=== PATIENT | male | born 1975 | race Caucasian/White ===

== ENCOUNTER 2018-11-14 10:18 | Emergency (ER) | payer SELFPAY ==
[~2018-11-14] VITALS: Ht 165.1 cm; Wt 80.0 kg
[2018-11-14] MEDS ORDERED: SODIUM CHLORIDE 0.9% 1,000 ML IV ONE ×2 (10:34→11:30)
[2018-11-14 10:49] LABS: BASOPHILS % 0.8 % (0.0-2.0); EOSINOPHILS % 0.5 % (0.0-5.0); HEMATOCRIT. 39.6 % (42.0-52.0); HEMOGLOBIN. 13.3 g/dL (14.0-18.0); LYMPHOCYTES % 26.1 % (20.0-50.0); MEAN CORPUSCULAR HEMOGLOBIN 32.7 pg (28.0-32.0); MEAN PLATELET VOLUME 9.8 fl (7.4-10.4); MONOCYTES % 10.5 % (2.0-8.0); NEUTROPHILS % 62.1 % (40.0-76.0); RED BLOOD CELL COUNT 4.08 mill/uL (4.7-6.1); RED CELL DISTRIBUTION WIDTH 14.1 % (11.6-14.6)
[2018-11-14 10:53] LABS: PLATELET 50 x1000/uL (130-400)
[2018-11-14] MEDS ORDERED: PANTOPRAZOLE SODIUM 40 MG/VIAL IV STA (10:54)
[2018-11-14 10:58] LABS: CHLORIDE 99 mEq/L (98-107)
[2018-11-14] MEDS ORDERED: LORAZEPAM 2MG/ML CPJ IV ONE ×2 (11:00→13:00)
[2018-11-14] MEDS ORDERED: ONDANSETRON HCL 4MG/2ML INJ IV ONE (11:00)
[2018-11-14 11:02] LABS: ETHANOL BLOOD 246 mg/dL
[2018-11-14 11:12] LABS: PLATELET ESTIMATE DECREASED
[2018-11-14] MEDS ORDERED: CHLORDIAZEPOXIDE 25MG CAPSULE PO ONE ×3 (11:30→15:45)
[2018-11-14] MEDS ORDERED: ACETAMINOPHEN 500MG TABLET PO ONE (12:30)
[2018-11-14 14:06] LABS: CLARITY URINE CLEAR (CLEAR); COLOR URINE YELLOW (YELLOW); KETONES URINE TRACE (NEGATIVE); LEUKOCYTE ESTERASE URINE NEGATIVE (NEGATIVE); NITRITE URINE NEGATIVE (NEGATIVE); OCCULT BLOOD URINE NEGATIVE (NEGATIVE); PH URINE 6.5 (4.5-8.0); PROTEIN URINE NEGATIVE (NEGATIVE); SPECIFIC GRAVITY URINE 1.014 (1.005-1.030)
[2018-11-14 14:18] LABS: *AMPHETAMINES SCREEN URINE NEGATIVE (NEGATIVE); *BARBITURATES SCREEN URINE NEGATIVE (NEGATIVE); *BENZODIAZEPINES SCREEN URINE NEGATIVE (NEGATIVE)
[2018-11-14 14:19] LABS: *COCAINE SCREEN URINE NEGATIVE (NEGATIVE); CANNABINOID URINE SCREEN NEGATIVE (NEGATIVE); METHADONE URINE SCREEN NEGATIVE (NEGATIVE); OPIATES URINE SCREEN NEGATIVE (NEGATIVE); PHENCYCLIDINE URINE SCREEN NEGATIVE (NEGATIVE)
[2018-11-14 16:40] VITALS: BP 113/79
== END 2018-11-14 17:03 | disposition home or self-care (01) ==
LOC: ER 10:49
DX: T51.0X1A Toxic effect of ethanol, accidental (unintentional), initial encounter (principal); K70.9 Alcoholic liver disease, unspecified; I10 Essential (primary) hypertension; Y92.89 Other specified places as the place of occurrence of the external cause
CPT/HCPCS: 36415; 80053; 80305; 80320; 81003; 82962; 83690; 84484; 85025; 93005; 96365; 96375; 96376; 99285; C9113; J2060; J2405; J7030; G0480

== ENCOUNTER 2018-11-28 01:01 | Emergency (ER) | payer SELFPAY ==
[~2018-11-28] VITALS: Ht 170.2 cm; Wt 76.4 kg
[2018-11-28] MEDS ORDERED: MORPHINE SULFATE 4 MG/ML CPJ (NOT FOR IM USE) IV STA (03:26)
[2018-11-28] MEDS ORDERED: ONDANSETRON HCL 4MG/2ML INJ IV STA (03:26)
[2018-11-28 03:40] LABS: BASOPHILS % 3.5 % (0.0-2.0); EOSINOPHILS % 0.8 % (0.0-5.0); HEMATOCRIT. 41.1 % (42.0-52.0); HEMOGLOBIN. 13.9 g/dL (14.0-18.0); MEAN CORPUSCULAR HEMOGLOBIN 33.5 pg (28.0-32.0); MEAN CORPUSCULAR VOLUME 99.3 fL (80.0-94.0); MEAN PLATELET VOLUME 11.8 fl (7.4-10.4); MONOCYTES % 9.7 % (2.0-8.0); PLATELET 102 x1000/uL (130-400); RED BLOOD CELL COUNT 4.14 mill/uL (4.7-6.1); RED CELL DISTRIBUTION WIDTH 14.7 % (11.6-14.6)
[2018-11-28 03:44] LABS: CHLORIDE 110 mEq/L (98-107)
[2018-11-28 03:46] LABS: INR 1.1; PROTHROMBIN TIME 11.6 sec (9.6-11.0)
[2018-11-28 03:54] LABS: *BARBITURATES SCREEN URINE NEGATIVE (NEGATIVE); CANNABINOID URINE SCREEN NEGATIVE (NEGATIVE); OPIATES URINE SCREEN NEGATIVE (NEGATIVE); PHENCYCLIDINE URINE SCREEN NEGATIVE (NEGATIVE)
[2018-11-28 03:55] LABS: *AMPHETAMINES SCREEN URINE NEGATIVE (NEGATIVE); *BENZODIAZEPINES SCREEN URINE PRESUMTIVE POSITIVE (NEGATIVE); *COCAINE SCREEN URINE NEGATIVE (NEGATIVE); METHADONE URINE SCREEN NEGATIVE (NEGATIVE)
[2018-11-28] MEDS ORDERED: ASPIRIN 325MG EC TABLET PO ONE (05:30)
[2018-11-28 05:59] VITALS: BP 110/74
== END 2018-11-28 08:00 | disposition left against medical advice (07) ==
LOC: ER 01:01 → EDBEDREQTM 05:10 → EDBEDREQ 05:10 → ER 08:00 → CANBEDREQ 08:12
DX: R07.89 Other chest pain (principal); R06.02 Shortness of breath
CPT/HCPCS: 36415; 71045; 80053; 80305; 84484; 85025; 85610; 93005; 96374; 96375; 99284; J2270; J2405; Z7610

== ENCOUNTER 2019-01-30 17:22 | Emergency (ER) | payer MEDICAID ==
[~2019-01-30] VITALS: Ht 162.6 cm; Wt 71.0 kg
[2019-01-30] MEDS ORDERED: SODIUM CHLORIDE 0.9% 1,000 ML IV ONE (19:56)
[2019-01-30] MEDS ORDERED: ONDANSETRON HCL 4MG/2ML INJ IV STA (19:56)
[2019-01-30] MEDS ORDERED: MORPHINE SULFATE 4 MG/ML CPJ (NOT FOR IM USE) IV STA (19:56)
[2019-01-30 20:15] LABS: BASOPHILS % 0.6 % (0.0-2.0); EOSINOPHILS % 0.2 % (0.0-5.0); HEMATOCRIT. 40.4 % (42.0-52.0); HEMOGLOBIN. 14.3 g/dL (14.0-18.0); LYMPHOCYTES % 18.2 % (20.0-50.0); MEAN CORPUSCULAR HEMOGLOBIN 34.2 pg (28.0-32.0); MEAN CORPUSCULAR VOLUME 96.9 fL (80.0-94.0); MEAN PLATELET VOLUME 10.3 fl (7.4-10.4); PLATELET 65 x1000/uL (130-400); RED BLOOD CELL COUNT 4.17 mill/uL (4.7-6.1); RED CELL DISTRIBUTION WIDTH 13.6 % (11.6-14.6)
[2019-01-30 20:19] LABS: CHLORIDE 99 mEq/L (98-107)
[2019-01-30 20:23] LABS: ETHANOL BLOOD 126 mg/dL
[2019-01-30 22:28] LABS: CLARITY URINE CLEAR (CLEAR); COLOR URINE YELLOW (YELLOW); KETONES URINE NEGATIVE (NEGATIVE); LEUKOCYTE ESTERASE URINE NEGATIVE (NEGATIVE); NITRITE URINE NEGATIVE (NEGATIVE); OCCULT BLOOD URINE NEGATIVE (NEGATIVE); PH URINE 7.5 (4.5-8.0); PROTEIN URINE NEGATIVE (NEGATIVE); SPECIFIC GRAVITY URINE 1.015 (1.005-1.030)
[2019-01-30] MEDS ORDERED: LORAZEPAM 0.5MG TABLET PO ONE (22:30)
[2019-01-30 22:48] LABS: *AMPHETAMINES SCREEN URINE NEGATIVE (NEGATIVE); *BARBITURATES SCREEN URINE NEGATIVE (NEGATIVE); *BENZODIAZEPINES SCREEN URINE NEGATIVE (NEGATIVE); *COCAINE SCREEN URINE NEGATIVE (NEGATIVE); METHADONE URINE SCREEN NEGATIVE (NEGATIVE); OPIATES URINE SCREEN PRESUMTIVE POSITIVE (NEGATIVE)
[2019-01-30 22:49] LABS: CANNABINOID URINE SCREEN NEGATIVE (NEGATIVE); PHENCYCLIDINE URINE SCREEN NEGATIVE (NEGATIVE)
[2019-01-30] MEDS ORDERED: ONDANSETRON HCL 4MG/2ML INJ IV ONE (23:00)
[2019-01-31] MEDS ORDERED: ONDANSETRON 4MG ODT PO ONE
[2019-01-31 00:57] VITALS: BP 163/98
== END 2019-01-31 01:02 | disposition home or self-care (01) ==
LOC: ER 17:22
DX: K70.30 Alcoholic cirrhosis of liver without ascites (principal); E11.9 Type 2 diabetes mellitus without complications; I10 Essential (primary) hypertension; F10.229 Alcohol dependence with intoxication, unspecified; Y90.6 Blood alcohol level of 120-199 mg/100 ml; R94.5 Abnormal results of liver function studies; F17.210 Nicotine dependence, cigarettes, uncomplicated
CPT/HCPCS: 36415; 71045; 74176; 76705; 80053; 80305; 80320; 81003; 83690; 85025; 93005; 96361; 96374; 96375; 96376; 99284; J2270; J2405; J7030; Q0162; Z7610; G0480

== ENCOUNTER 2019-04-01 18:23 | Emergency (ER) | payer MEDICAID, OTHER ==
[~2019-04-01] VITALS: Ht 167.6 cm; Wt 71.0 kg
[2019-04-01] MEDS ORDERED: SODIUM CHLORIDE 0.9% 1,000 ML IV ONE (19:02)
[2019-04-01] MEDS ORDERED: PANTOPRAZOLE 80 MG in SODIUM CHLORIDE 0.9% 100 ML IV SCH ×2 (19:15→20:45)
[2019-04-01] MEDS ORDERED: PANTOPRAZOLE SODIUM 40 MG/VIAL IV ONE ×2 (19:15→20:37)
[2019-04-01] MEDS ORDERED: LORAZEPAM 1MG TABLET PO NR (19:45)
[2019-04-01 20:13] LABS: BASOPHILS % 1.3 % (0.0-2.0); EOSINOPHILS % 0.4 % (0.0-5.0); HEMATOCRIT. 35.4 % (42.0-52.0); HEMOGLOBIN. 12.4 g/dL (14.0-18.0); LYMPHOCYTES % 19.9 % (20.0-50.0); MEAN CORPUSCULAR HEMOGLOBIN 33.8 pg (28.0-32.0); MEAN CORPUSCULAR VOLUME 96.8 fL (80.0-94.0); MEAN PLATELET VOLUME 9.9 fl (7.4-10.4); MONOCYTES % 12.8 % (2.0-8.0); NEUTROPHILS % 65.6 % (40.0-76.0); RED BLOOD CELL COUNT 3.66 mill/uL (4.7-6.1); RED CELL DISTRIBUTION WIDTH 15.3 % (11.6-14.6)
[2019-04-01 20:15] LABS: CHLORIDE 104 mEq/L (98-107)
[2019-04-01 20:18] LABS: INR 1.2; PROTHROMBIN TIME 12.2 sec (9.6-11.0)
[2019-04-01 20:25] LABS: PLATELET 36 x1000/uL (130-400)
[2019-04-01 20:35] LABS: ETHANOL BLOOD 338 mg/dL
[2019-04-01 22:17] VITALS: BP 132/90
== END 2019-04-01 23:28 | disposition short-term general hospital (02) ==
LOC: ER 18:23 → EDBEDREQ 19:07 → ER 23:28 → CANBEDREQ 23:48
DX: R07.89 Other chest pain (principal); K92.2 Gastrointestinal hemorrhage, unspecified; F10.20 Alcohol dependence, uncomplicated; Y90.8 Blood alcohol level of 240 mg/100 ml or more; E11.9 Type 2 diabetes mellitus without complications; I10 Essential (primary) hypertension
CPT/HCPCS: 36415; 71045; 80053; 80320; 83690; 83880; 84484; 85025; 85610; 93005; 96361; 96374; 99291; C9113; J7030; J7050; G0480

== ENCOUNTER 2019-05-29 21:03 | Emergency (ER) | payer OTHER ==
[~2019-05-29] VITALS: Ht 170.2 cm; Wt 64.0 kg
[2019-05-29] MEDS ORDERED: ONDANSETRON HCL 4MG/2ML INJ IV STA (22:50)
[2019-05-29] MEDS ORDERED: SODIUM CHLORIDE 0.9% 1,000 ML IV ONE (22:50)
[2019-05-29] MEDS ORDERED: LORAZEPAM 2MG/ML CPJ IV ONE (23:00)
[2019-05-29 23:05] LABS: BASOPHILS % 0.8 % (0.0-2.0); EOSINOPHILS % 0.4 % (0.0-5.0); HEMATOCRIT. 41.7 % (42.0-52.0); HEMOGLOBIN. 14.4 g/dL (14.0-18.0); LYMPHOCYTES % 17.7 % (20.0-50.0); MEAN CORPUSCULAR HEMOGLOBIN 33.6 pg (28.0-32.0); MEAN CORPUSCULAR VOLUME 97.2 fL (80.0-94.0); MEAN PLATELET VOLUME 10.8 fl (7.4-10.4); MONOCYTES % 8.8 % (2.0-8.0); NEUTROPHILS % 72.3 % (40.0-76.0); PLATELET 64 x1000/uL (130-400); RED BLOOD CELL COUNT 4.29 mill/uL (4.7-6.1); RED CELL DISTRIBUTION WIDTH 13.2 % (11.6-14.6)
[2019-05-29 23:09] LABS: CHLORIDE 102 mEq/L (98-107)
[2019-05-29 23:11] LABS: INR 1.2; PROTHROMBIN TIME 12.5 sec (9.6-11.0)
[2019-05-29 23:21] LABS: CLARITY URINE CLEAR (CLEAR); COLOR URINE YELLOW (YELLOW); KETONES URINE NEGATIVE (NEGATIVE); LEUKOCYTE ESTERASE URINE NEGATIVE (NEGATIVE); NITRITE URINE NEGATIVE (NEGATIVE); OCCULT BLOOD URINE NEGATIVE (NEGATIVE); PROTEIN URINE NEGATIVE (NEGATIVE); SPECIFIC GRAVITY URINE 1.007 (1.005-1.030); UROBILINOGEN URINE 0.2 E.U./dL (0.2-1.0)
[2019-05-29 23:23] LABS: ETHANOL BLOOD 340 mg/dL
[2019-05-29 23:31] LABS: *AMPHETAMINES SCREEN URINE NEGATIVE (NEGATIVE); *BARBITURATES SCREEN URINE NEGATIVE (NEGATIVE); *BENZODIAZEPINES SCREEN URINE NEGATIVE (NEGATIVE); *COCAINE SCREEN URINE NEGATIVE (NEGATIVE); METHADONE URINE SCREEN NEGATIVE (NEGATIVE); OPIATES URINE SCREEN NEGATIVE (NEGATIVE)
[2019-05-29 23:32] LABS: CANNABINOID URINE SCREEN NEGATIVE (NEGATIVE); PHENCYCLIDINE URINE SCREEN NEGATIVE (NEGATIVE)
[2019-05-30 04:30] VITALS: BP 130/72
== END 2019-05-30 04:41 | disposition short-term general hospital (02) ==
LOC: ER 21:03 → CANBEDREQ 05-30 06:11
DX: F10.129 Alcohol abuse with intoxication, unspecified (principal); Y90.8 Blood alcohol level of 240 mg/100 ml or more; R74.0 Nonspecific elevation of levels of transaminase and lactic acid dehydrogenase [LDH]; R03.0 Elevated blood-pressure reading, without diagnosis of hypertension; R00.0 Tachycardia, unspecified
CPT/HCPCS: 36415; 71045; 80053; 80305; 80320; 81003; 83605; 83690; 84484; 85025; 85610; 93005; 96361; 96374; 96375; 99285; J2060; J2405; J7030; G0480

== ENCOUNTER 2019-07-18 18:24 | Emergency (ER) | payer OTHER ==
[~2019-07-18] VITALS: Ht 170.2 cm; Wt 75.0 kg
[2019-07-18] MEDS ORDERED: MORPHINE SULFATE 4 MG/ML CPJ (NOT FOR IM USE) IV STA (18:58)
[2019-07-18] MEDS ORDERED: SODIUM CHLORIDE 0.9% 1,000 ML IV ONE (18:58)
[2019-07-18] MEDS ORDERED: ONDANSETRON HCL 4MG/2ML INJ IV STA (18:58)
[2019-07-18 19:52] LABS: BASOPHILS % 0.5 % (0.0-2.0); EOSINOPHILS % 0.5 % (0.0-5.0); HEMATOCRIT. 40.2 % (42.0-52.0); LYMPHOCYTES % 21.5 % (20.0-50.0); MEAN CORPUSCULAR HEMOGLOBIN 32.5 pg (28.0-32.0); MEAN CORPUSCULAR VOLUME 93.2 fL (80.0-94.0); MEAN PLATELET VOLUME 10.5 fl (7.4-10.4); NEUTROPHILS % 66.5 % (40.0-76.0); PLATELET 56 x1000/uL (130-400); RED BLOOD CELL COUNT 4.31 mill/uL (4.7-6.1); RED CELL DISTRIBUTION WIDTH 13.6 % (11.6-14.6)
[2019-07-18 19:53] LABS: CHLORIDE 101 mEq/L (98-107)
[2019-07-18 20:02] LABS: ETHANOL BLOOD 282 mg/dL
[2019-07-18] MEDS ORDERED: IOHEXOL-350 100 ML BOTTLE ONE (22:03)
[2019-07-18] MEDS ORDERED: CLONIDINE 0.2MG TABLET PO SCH (23:00)
[2019-07-18 23:17] LABS: *AMPHETAMINES SCREEN URINE NEGATIVE (NEGATIVE); *BARBITURATES SCREEN URINE NEGATIVE (NEGATIVE); *BENZODIAZEPINES SCREEN URINE NEGATIVE (NEGATIVE); *COCAINE SCREEN URINE NEGATIVE (NEGATIVE); METHADONE URINE SCREEN NEGATIVE (NEGATIVE); OPIATES URINE SCREEN PRESUMTIVE POSITIVE (NEGATIVE)
[2019-07-18 23:18] LABS: CANNABINOID URINE SCREEN NEGATIVE (NEGATIVE); PHENCYCLIDINE URINE SCREEN NEGATIVE (NEGATIVE)
[2019-07-18] MEDS ORDERED: ONDANSETRON HCL 4MG/2ML INJ IV ONE (23:45)
[2019-07-18 23:59] VITALS: BP 157/99
== END 2019-07-19 00:34 | disposition short-term general hospital (02) ==
LOC: ER 18:24 → CANBEDREQ 07-19 01:30
DX: R07.89 Other chest pain (principal); R06.02 Shortness of breath; E11.9 Type 2 diabetes mellitus without complications; I10 Essential (primary) hypertension; F10.20 Alcohol dependence, uncomplicated; Y90.8 Blood alcohol level of 240 mg/100 ml or more
CPT/HCPCS: 36415; 71045; 71275; 80053; 80305; 80320; 83690; 83880; 84484; 85025; 86850; 86900; 86901; 93005; 96374; 96375; 96376; 99285; J2270; J2405; J7030; Q9967; Z7610; G0480

== ENCOUNTER 2019-09-19 20:20 | Emergency (ER) | payer OTHER ==
[~2019-09-19] VITALS: Ht 170.2 cm; Wt 69.0 kg
[2019-09-19] MEDS ORDERED: SODIUM CHLORIDE 0.9% 1,000 ML IV ONE ×2 (21:15)
[2019-09-19 21:35] LABS: CHLORIDE 97 mEq/L (98-107)
[2019-09-19 21:38] LABS: INR 1.2
[2019-09-19 21:50] LABS: BASOPHILS % 0.9 % (0.0-2.0); EOSINOPHILS % 0.3 % (0.0-5.0); HEMATOCRIT. 42.3 % (42.0-52.0); HEMOGLOBIN. 14.5 g/dL (14.0-18.0); LYMPHOCYTES % 22.9 % (20.0-50.0); MEAN CORPUSCULAR VOLUME 93.4 fL (80.0-94.0); MONOCYTES % 8.7 % (2.0-8.0); NEUTROPHILS % 67.2 % (40.0-76.0); PLATELET 56 x1000/uL (130-400); RED BLOOD CELL COUNT 4.53 mill/uL (4.7-6.1)
[2019-09-19 21:56] LABS: ETHANOL BLOOD 323 mg/dL
[2019-09-19 23:45] LABS: CLARITY URINE CLEAR (CLEAR); COLOR URINE YELLOW (YELLOW); KETONES URINE NEGATIVE (NEGATIVE); LEUKOCYTE ESTERASE URINE NEGATIVE (NEGATIVE); NITRITE URINE NEGATIVE (NEGATIVE); OCCULT BLOOD URINE NEGATIVE (NEGATIVE); PROTEIN URINE NEGATIVE (NEGATIVE); SPECIFIC GRAVITY URINE 1.012 (1.005-1.030)
[2019-09-20 00:59] LABS: *AMPHETAMINES SCREEN URINE NEGATIVE (NEGATIVE); *BARBITURATES SCREEN URINE NEGATIVE (NEGATIVE); *BENZODIAZEPINES SCREEN URINE NEGATIVE (NEGATIVE); *COCAINE SCREEN URINE NEGATIVE (NEGATIVE)
[2019-09-20 01:00] VITALS: BP 104/85
[2019-09-20 01:00] LABS: CANNABINOID URINE SCREEN NEGATIVE (NEGATIVE); METHADONE URINE SCREEN NEGATIVE (NEGATIVE); OPIATES URINE SCREEN NEGATIVE (NEGATIVE); PHENCYCLIDINE URINE SCREEN NEGATIVE (NEGATIVE)
== END 2019-09-20 01:00 | disposition home or self-care (01) ==
LOC: ER 20:20
DX: R07.89 Other chest pain (principal); E11.9 Type 2 diabetes mellitus without complications; I10 Essential (primary) hypertension; F10.10 Alcohol abuse, uncomplicated; Y90.8 Blood alcohol level of 240 mg/100 ml or more
CPT/HCPCS: 36415; 71045; 80053; 80305; 80320; 81003; 83605; 83690; 84484; 85025; 85610; 93005; 99285; J7030; G0480

== ENCOUNTER 2019-11-09 14:02 | Emergency (ER) | payer OTHER ==
[~2019-11-09] VITALS: Ht 177.8 cm; Wt 80.0 kg
[2019-11-09] MEDS ORDERED: SODIUM CHLORIDE 0.9% 1,000 ML IV ONE (14:36)
[2019-11-09] MEDS ORDERED: ONDANSETRON HCL 4MG/2ML INJ IV STA (14:36)
[2019-11-09] MEDS ORDERED: PANTOPRAZOLE SODIUM 40 MG/VIAL IV STA (14:36)
[2019-11-09 15:51] LABS: CLARITY URINE CLEAR (CLEAR); COLOR URINE YELLOW (YELLOW); KETONES URINE NEGATIVE (NEGATIVE); LEUKOCYTE ESTERASE URINE NEGATIVE (NEGATIVE); NITRITE URINE NEGATIVE (NEGATIVE); OCCULT BLOOD URINE NEGATIVE (NEGATIVE); PH URINE 6.5 (4.5-8.0); PROTEIN URINE NEGATIVE (NEGATIVE)
[2019-11-09 15:52] LABS: CHLORIDE 99 mEq/L (98-107)
[2019-11-09 15:53] LABS: INR 1.1; PROTHROMBIN TIME 12.1 sec (9.6-11.0)
[2019-11-09 15:59] LABS: BASOPHILS % 0.9 % (0.0-2.0); EOSINOPHILS % 0.4 % (0.0-5.0); HEMATOCRIT. 39.2 % (42.0-52.0); HEMOGLOBIN. 13.6 g/dL (14.0-18.0); MEAN CORPUSCULAR HEMOGLOBIN 32.1 pg (28.0-32.0); MEAN CORPUSCULAR VOLUME 92.1 fL (80.0-94.0); MEAN PLATELET VOLUME 10.1 fl (7.4-10.4); MONOCYTES % 11.4 % (2.0-8.0); NEUTROPHILS % 66.3 % (40.0-76.0); RED BLOOD CELL COUNT 4.25 mill/uL (4.7-6.1)
[2019-11-09 16:00] LABS: OPIATES URINE SCREEN NEGATIVE (NEGATIVE)
[2019-11-09 16:01] LABS: *AMPHETAMINES SCREEN URINE NEGATIVE (NEGATIVE); *BARBITURATES SCREEN URINE NEGATIVE (NEGATIVE); *BENZODIAZEPINES SCREEN URINE NEGATIVE (NEGATIVE); *COCAINE SCREEN URINE NEGATIVE (NEGATIVE); CANNABINOID URINE SCREEN NEGATIVE (NEGATIVE); METHADONE URINE SCREEN NEGATIVE (NEGATIVE); PHENCYCLIDINE URINE SCREEN NEGATIVE (NEGATIVE)
[2019-11-09 16:02] LABS: PLATELET 37 x1000/uL (130-400)
[2019-11-09 16:07] LABS: ETHANOL BLOOD 369 mg/dL
[2019-11-09 18:00] VITALS: BP 143/88
== END 2019-11-09 18:00 | disposition home or self-care (01) ==
LOC: ER 14:02
DX: T51.0X1A Toxic effect of ethanol, accidental (unintentional), initial encounter (principal); G92 Toxic encephalopathy; F10.229 Alcohol dependence with intoxication, unspecified; Y90.8 Blood alcohol level of 240 mg/100 ml or more; I10 Essential (primary) hypertension; E11.65 Type 2 diabetes mellitus with hyperglycemia; D61.818 Other pancytopenia; R05 Cough; E87.8 Other disorders of electrolyte and fluid balance, not elsewhere classified; Y92.89 Other specified places as the place of occurrence of the external cause
CPT/HCPCS: 36415; 71045; 80053; 80305; 80320; 81003; 83690; 83880; 84484; 85025; 85610; 93005; 96374; 96375; 99285; C9113; J2405; J7030; G0480

== ENCOUNTER 2019-12-28 07:42 | Emergency (ER) | payer OTHER ==
[~2019-12-28] VITALS: Ht 170.2 cm; Wt 79.0 kg
[2019-12-28] MEDS ORDERED: SODIUM CHLORIDE 0.9% 1,000 ML IV ONE (08:12)
[2019-12-28] MEDS ORDERED: ONDANSETRON HCL 4MG/2ML INJ IV ONE (08:15)
[2019-12-28 08:21] LABS: BASOPHILS % 1.3 % (0.0-2.0); EOSINOPHILS % 0.1 % (0.0-5.0); HEMOGLOBIN. 13.3 g/dL (14.0-18.0); LYMPHOCYTES % 28.4 % (20.0-50.0); MEAN CORPUSCULAR HEMOGLOBIN 31.8 pg (28.0-32.0); MEAN CORPUSCULAR VOLUME 93.5 fL (80.0-94.0); MEAN PLATELET VOLUME 9.9 fl (7.4-10.4); NEUTROPHILS % 58.2 % (40.0-76.0); PLATELET 75 x1000/uL (130-400); RED BLOOD CELL COUNT 4.17 mill/uL (4.7-6.1); RED CELL DISTRIBUTION WIDTH 14.3 % (11.6-14.6)
[2019-12-28 08:29] LABS: CHLORIDE 104 mEq/L (98-107)
[2019-12-28 08:40] LABS: BETA HYDROXYBUTYRATE 0.1 mMol/L (0.0-0.3)
[2019-12-28 08:43] VITALS: BP 151/88
[2019-12-28 08:51] LABS: ETHANOL BLOOD 400 mg/dL
== END 2019-12-28 08:44 | disposition left against medical advice (07) ==
LOC: ER 07:42
DX: R11.2 Nausea with vomiting, unspecified (principal)
CPT/HCPCS: 36415; 80053; 80320; 82010; 82962; 83690; 84484; 85025; 96360; 99283; J7030; G0480

== ENCOUNTER 2020-01-11 05:30 | Emergency (ER) | payer OTHER ==
[~2020-01-11] VITALS: Ht 170.2 cm; Wt 81.0 kg
[2020-01-11] MEDS ORDERED: ONDANSETRON HCL 4MG/2ML INJ IV STA (06:17)
[2020-01-11] MEDS ORDERED: MORPHINE SULFATE 4 MG/ML CPJ (NOT FOR IM USE) IV STA (06:17)
[2020-01-11] MEDS ORDERED: SODIUM CHLORIDE 0.9% 1,000 ML IV ONE (06:17)
[2020-01-11 06:51] LABS: CHLORIDE 96 mEq/L (98-107)
[2020-01-11 06:58] LABS: ETHANOL BLOOD 245 mg/dL
[2020-01-11 07:16] LABS: CLARITY URINE CLEAR (CLEAR); COLOR URINE DARK YELLOW (YELLOW); KETONES URINE TRACE (NEGATIVE); LEUKOCYTE ESTERASE URINE NEGATIVE (NEGATIVE); NITRITE URINE NEGATIVE (NEGATIVE); OCCULT BLOOD URINE NEGATIVE (NEGATIVE); PH URINE 6.5 (4.5-8.0); PROTEIN URINE 1+ (NEGATIVE)
[2020-01-11 07:45] LABS: BASOPHILS % 1.1 % (0.0-2.0); EOSINOPHILS % 0.1 % (0.0-5.0); HEMATOCRIT. 36.7 % (42.0-52.0); HEMOGLOBIN. 12.8 g/dL (14.0-18.0); LYMPHOCYTES % 21.7 % (20.0-50.0); MEAN CORPUSCULAR HEMOGLOBIN 31.7 pg (28.0-32.0); MEAN CORPUSCULAR VOLUME 91.1 fL (80.0-94.0); MEAN PLATELET VOLUME 9.3 fl (7.4-10.4); MONOCYTES % 9.7 % (2.0-8.0); NEUTROPHILS % 67.4 % (40.0-76.0); RED BLOOD CELL COUNT 4.02 mill/uL (4.7-6.1); RED CELL DISTRIBUTION WIDTH 14.2 % (11.6-14.6)
[2020-01-11 07:53] LABS: INR 1.2; PROTHROMBIN TIME 12.5 sec (9.6-11.0)
[2020-01-11] MEDS ORDERED: CHLORDIAZEPOXIDE 25MG CAPSULE PO ONE (08:00)
[2020-01-11] MEDS ORDERED: LORAZEPAM 2MG/ML CPJ IV ONE (08:00)
[2020-01-11 08:21] LABS: PLATELET 38 x1000/uL (130-400)
[2020-01-11 08:22] LABS: PLATELET ESTIMATE MARKEDLY DECREASED
[2020-01-11 10:47] VITALS: BP 137/87
== END 2020-01-11 10:54 | disposition short-term general hospital (02) ==
LOC: ER 05:30 → CANBEDREQ 09:50 → ER 10:54
DX: F10.239 Alcohol dependence with withdrawal, unspecified (principal); Y90.8 Blood alcohol level of 240 mg/100 ml or more; K70.30 Alcoholic cirrhosis of liver without ascites; K76.6 Portal hypertension; D69.6 Thrombocytopenia, unspecified; I10 Essential (primary) hypertension; E11.9 Type 2 diabetes mellitus without complications; K57.90 Diverticulosis of intestine, part unspecified, without perforation or abscess without bleeding; N28.1 Cyst of kidney, acquired; Z79.899 Other long term (current) drug therapy
CPT/HCPCS: 36415; 74176; 80053; 80320; 81003; 83690; 85025; 85610; 93005; 96361; 96374; 96375; 99285; J2060; J2270; J2405; J7030; G0480

== ENCOUNTER 2020-05-20 13:38 | Emergency (ER) | payer OTHER ==
[~2020-05-20] VITALS: Ht 167.6 cm; Wt 79.0 kg
[2020-05-20] MEDS ORDERED: ONDANSETRON HCL 4MG/2ML INJ IV STA (14:29)
[2020-05-20] MEDS ORDERED: LORAZEPAM 2MG/ML CPJ IV ONE (14:30)
[2020-05-20 15:29] LABS: HEMATOCRIT. 37.5 % (42.0-52.0); HEMOGLOBIN. 12.9 g/dL (14.0-18.0); MEAN CORPUSCULAR HEMOGLOBIN 32.2 pg (28.0-32.0); MEAN CORPUSCULAR VOLUME 93.6 fL (80.0-94.0); MEAN PLATELET VOLUME 9.5 fl (7.4-10.4); RED BLOOD CELL COUNT 4.01 mill/uL (4.7-6.1); RED CELL DISTRIBUTION WIDTH 15.5 % (11.6-14.6)
[2020-05-20 15:34] LABS: CHLORIDE 98 mEq/L (98-107)
[2020-05-20 15:38] LABS: ETHANOL BLOOD 248 mg/dL
[2020-05-20 17:58] LABS: PLATELET ESTIMATE MARKEDLY DECREASED
[2020-05-20 18:02] LABS: PLATELET 18 x1000/uL (130-400)
[2020-05-20] MEDS ORDERED: IOHEXOL-300 100 ML BOTTLE ONE (18:17)
[2020-05-20 19:35] VITALS: BP 145/88
[2020-05-20 19:49] LABS: CLARITY URINE CLEAR (CLEAR); COLOR URINE DARK YELLOW (YELLOW); KETONES URINE 1+ (NEGATIVE); LEUKOCYTE ESTERASE URINE NEGATIVE (NEGATIVE); NITRITE URINE NEGATIVE (NEGATIVE); OCCULT BLOOD URINE NEGATIVE (NEGATIVE); PROTEIN URINE 1+ (NEGATIVE); SPECIFIC GRAVITY URINE 1.051 (1.005-1.030)
[2020-05-20 19:59] LABS: *AMPHETAMINES SCREEN URINE NEGATIVE (NEGATIVE); *BARBITURATES SCREEN URINE NEGATIVE (NEGATIVE); *BENZODIAZEPINES SCREEN URINE NEGATIVE (NEGATIVE); *COCAINE SCREEN URINE NEGATIVE (NEGATIVE); METHADONE URINE SCREEN NEGATIVE (NEGATIVE); OPIATES URINE SCREEN NEGATIVE (NEGATIVE)
[2020-05-20 20:00] LABS: CANNABINOID URINE SCREEN NEGATIVE (NEGATIVE); PHENCYCLIDINE URINE SCREEN NEGATIVE (NEGATIVE)
== END 2020-05-20 19:41 | disposition short-term general hospital (02) ==
LOC: ER 13:51
DX: K85.90 Acute pancreatitis without necrosis or infection, unspecified (principal); R10.31 Right lower quadrant pain; E11.9 Type 2 diabetes mellitus without complications; I10 Essential (primary) hypertension
CPT/HCPCS: 36415; 71045; 74177; 80053; 80305; 80320; 81003; 83690; 83880; 84484; 85025; 93005; 96374; 96375; 99285; J2060; J2405; Q9967; G0480

== ENCOUNTER 2020-07-12 16:41 | Emergency (ER) | payer OTHER ==
[~2020-07-12] VITALS: Ht 167.6 cm; Wt 86.0 kg
[2020-07-12] MEDS ORDERED: INSU100V3 SUBCUT (16:51)
[2020-07-12] MEDS ORDERED: SODIUM CHLORIDE 0.9% 1,000 ML IV ONE (17:00)
[2020-07-12] MEDS ORDERED: ONDANSETRON HCL 4MG/2ML INJ IV STA (17:00)
[2020-07-12 17:19] LABS: BASOPHILS % 1.2 % (0.0-2.0); EOSINOPHILS % 0.5 % (0.0-5.0); HEMATOCRIT. 40.6 % (42.0-52.0); HEMOGLOBIN. 13.8 g/dL (14.0-18.0); LYMPHOCYTES % 27.2 % (20.0-50.0); MEAN CORPUSCULAR VOLUME 96.9 fL (80.0-94.0); MEAN PLATELET VOLUME 10.3 fl (7.4-10.4); NEUTROPHILS % 60.1 % (40.0-76.0); RED BLOOD CELL COUNT 4.19 mill/uL (4.7-6.1); RED CELL DISTRIBUTION WIDTH 14.3 % (11.6-14.6)
[2020-07-12 17:24] LABS: CHLORIDE 100 mEq/L (98-107)
[2020-07-12 17:42] LABS: ETHANOL BLOOD 348 mg/dL
[2020-07-12 19:47] LABS: INR 1.2; PROTHROMBIN TIME 12.2 sec (9.6-11.0)
[2020-07-12 20:25] VITALS: BP 143/85
[2020-07-13 11:09] LABS: PLATELET 42 x1000/uL (130-400)
== END 2020-07-12 20:20 | disposition short-term general hospital (02) ==
LOC: ER 16:41 → EDBEDREQ 17:39 → ER 20:20 → CANBEDREQ 20:59
DX: K70.10 Alcoholic hepatitis without ascites (principal); F10.229 Alcohol dependence with intoxication, unspecified; K70.30 Alcoholic cirrhosis of liver without ascites; Y90.8 Blood alcohol level of 240 mg/100 ml or more
CPT/HCPCS: 36415; 71045; 76705; 80053; 80320; 83690; 85025; 85610; 86850; 86900; 86901; 93005; 96374; 99285; J2405; J7030; G0480

== ENCOUNTER 2020-09-24 09:39 | Emergency (ER) | payer OTHER ==
[~2020-09-24] VITALS: Ht 172.7 cm; Wt 68.0 kg
[~2020-09-24 09:39] MED LIST: INSU100V3 SUBCUT
[2020-09-24] MEDS ORDERED: LORAZEPAM 2MG/ML CPJ IV ONE ×2 (10:15→21:15)
[2020-09-24] MEDS ORDERED: ONDANSETRON HCL 4MG/2ML INJ IV ONE ×2 (10:15→14:00)
[2020-09-24] MEDS ORDERED: SODIUM CHLORIDE 0.9% 1,000 ML IV ONE ×2 (10:15→16:30)
[2020-09-24 11:45] LABS: EOSINOPHILS % 0.5 % (0.0-5.0); HEMATOCRIT. 36.5 % (42.0-52.0); HEMOGLOBIN. 12.5 g/dL (14.0-18.0); LYMPHOCYTES % 29.6 % (20.0-50.0); MEAN CORPUSCULAR HEMOGLOBIN 32.5 pg (28.0-32.0); MEAN CORPUSCULAR VOLUME 94.9 fL (80.0-94.0); MONOCYTES % 9.4 % (2.0-8.0); NEUTROPHILS % 59.5 % (40.0-76.0); RED BLOOD CELL COUNT 3.85 mill/uL (4.7-6.1); RED CELL DISTRIBUTION WIDTH 15.9 % (11.6-14.6)
[2020-09-24 11:46] LABS: CHLORIDE 96 mEq/L (98-107)
[2020-09-24 11:51] LABS: INR 1.3; PARTIAL THROMBOPLASTIN TIME 30.2 sec (23.4-31.0); PROTHROMBIN TIME 13.1 sec (9.6-11.0)
[2020-09-24 12:13] LABS: ETHANOL BLOOD 313 mg/dL; MEAN PLATELET VOLUME 9.6 fl (7.4-10.4); PLATELET 19 x1000/uL (130-400)
[2020-09-24] MEDS ORDERED: POTASSIUM CHLORIDE 20MEQ TABLET SR PO ONE (12:45)
[2020-09-24] MEDS ORDERED: MORPHINE SULFATE 4 MG/ML CPJ (NOT FOR IM USE) IV ONE (14:00)
[2020-09-24] MEDS ORDERED: CHLORDIAZEPOXIDE 25MG CAPSULE PO ONE (15:15)
[2020-09-24] MEDS ORDERED: LORAZEPAM 0.5MG TABLET PO ONE (16:30)
[2020-09-24] MEDS ORDERED: OXYCODONE HCL 5MG TABLET PO ONE (21:15)
[2020-09-25 02:03] VITALS: BP 139/83
== END 2020-09-25 03:00 | disposition short-term general hospital (02) ==
LOC: ER 09:39 → CANBEDREQ 09-25 09:14
DX: R07.89 Other chest pain (principal); R06.02 Shortness of breath; R10.9 Unspecified abdominal pain; K74.60 Unspecified cirrhosis of liver; F10.129 Alcohol abuse with intoxication, unspecified; Y90.8 Blood alcohol level of 240 mg/100 ml or more; E11.9 Type 2 diabetes mellitus without complications; I10 Essential (primary) hypertension; Z79.4 Long term (current) use of insulin
CPT/HCPCS: 36415; 70450; 71045; 76705; 80053; 80320; 83690; 83880; 84484; 85025; 85610; 85730; 93005; 96361; 96374; 96375; 96376; 99285; J2060; J2270; J2405; J7030; G0480

== ENCOUNTER 2020-11-13 16:55 | Emergency (ER) | payer OTHER ==
[~2020-11-13] VITALS: Ht 165.1 cm; Wt 75.0 kg
[2020-11-13] MEDS ORDERED: ONDANSETRON HCL 4MG/2ML INJ IV STA (18:16)
[2020-11-13] MEDS ORDERED: SODIUM CHLORIDE 0.9% 1,000 ML IV ONE (18:30)
[2020-11-13 18:53] LABS: CLARITY URINE CLEAR (CLEAR); COLOR URINE YELLOW (YELLOW); KETONES URINE TRACE (NEGATIVE); LEUKOCYTE ESTERASE URINE NEGATIVE (NEGATIVE); NITRITE URINE NEGATIVE (NEGATIVE); OCCULT BLOOD URINE NEGATIVE (NEGATIVE); PROTEIN URINE 1+ (NEGATIVE); SPECIFIC GRAVITY URINE 1.021 (1.005-1.030)
[2020-11-13 18:56] LABS: BASOPHILS % 0.5 % (0.0-2.0); EOSINOPHILS % 0.2 % (0.0-5.0); HEMATOCRIT. 34.6 % (42.0-52.0); HEMOGLOBIN. 11.9 g/dL (14.0-18.0); LYMPHOCYTES % 21.4 % (20.0-50.0); MEAN CORPUSCULAR HEMOGLOBIN 30.6 pg (28.0-32.0); MEAN CORPUSCULAR VOLUME 89.2 fL (80.0-94.0); MEAN PLATELET VOLUME 9.5 fl (7.4-10.4); MONOCYTES % 9.2 % (2.0-8.0); NEUTROPHILS % 68.7 % (40.0-76.0); RED BLOOD CELL COUNT 3.88 mill/uL (4.7-6.1); RED CELL DISTRIBUTION WIDTH 15.9 % (11.6-14.6)
[2020-11-13 18:57] LABS: CHLORIDE 99 mEq/L (98-107)
[2020-11-13 19:04] LABS: INR 1.2
[2020-11-13 19:10] LABS: ETHANOL BLOOD 366 mg/dL
[2020-11-13] MEDS ORDERED: DIPHENHYDRAMINE 50MG/ML VIAL IV ONE (23:15)
[2020-11-13] MEDS ORDERED: ONDANSETRON HCL 4MG/2ML INJ IV ONE (23:30)
[2020-11-13] MEDS ORDERED: SODIUM CHLORIDE 0.9% 500 ML IV ONE (23:30)
[2020-11-13 23:56] VITALS: BP 119/80
[2020-11-14] MEDS ORDERED: LORAZEPAM 2MG/ML CPJ IV ONE
[2020-11-14 09:30] LABS: PLATELET 13 x1000/uL (130-400)
[2020-11-19] MEDS ORDERED: TOPUD PO (07:32)
[2020-11-19] MEDS ORDERED: ONDA4TAB5 PO (07:32)
== END 2020-11-14 00:10 | disposition short-term general hospital (02) ==
LOC: ER 16:55
DX: T51.0X1A Toxic effect of ethanol, accidental (unintentional), initial encounter (principal); R07.89 Other chest pain; F10.229 Alcohol dependence with intoxication, unspecified; D61.818 Other pancytopenia; D47.3 Essential (hemorrhagic) thrombocythemia; K70.10 Alcoholic hepatitis without ascites; Y90.8 Blood alcohol level of 240 mg/100 ml or more; K70.9 Alcoholic liver disease, unspecified; R10.13 Epigastric pain; I10 Essential (primary) hypertension; E87.1 Hypo-osmolality and hyponatremia; R53.1 Weakness; R00.0 Tachycardia, unspecified; E11.65 Type 2 diabetes mellitus with hyperglycemia; Y92.89 Other specified places as the place of occurrence of the external cause; Z79.84 Long term (current) use of oral hypoglycemic drugs
CPT/HCPCS: 36415; 71045; 80053; 80320; 81003; 83690; 84484; 85025; 85610; 86850; 86900; 86901; 93005; 96361; 96374; 96375; 99285; J1200; J2060; J2405; J7030; J7040; Z7610; P9034; G0480

== ENCOUNTER 2020-11-20 03:08 | Emergency (ER) | payer OTHER ==
[~2020-11-20] VITALS: Ht 167.6 cm; Wt 82.0 kg
[~2020-11-20 03:08] MED LIST changes: +ONDA4TAB5 PO; +TOPUD PO
[2020-11-20 03:25] VITALS: BP 157/100
[2020-11-20] MEDS ORDERED: VISCOUS LIDOCAINE 2% 15 ML UDC PO STA (03:27)
[2020-11-20] MEDS ORDERED: MAGNESIUM/ALUMINUM HYDROXIDE/SIMETHICONE 30ML UDC PO STA (03:27)
[2020-11-20 03:45] LABS: HEMATOCRIT. 37.2 % (42.0-52.0); HEMOGLOBIN. 12.4 g/dL (14.0-18.0); MEAN CORPUSCULAR VOLUME 92.8 fL (80.0-94.0); MEAN PLATELET VOLUME 9.3 fl (7.4-10.4); RED CELL DISTRIBUTION WIDTH 17.9 % (11.6-14.6)
[2020-11-20 03:48] LABS: PLATELET 48 x1000/uL (130-400)
[2020-11-20 03:51] LABS: CHLORIDE 105 mEq/L (98-107)
[2020-11-20 04:20] LABS: PLATELET ESTIMATE MARKEDLY DECREASED
== END 2020-11-20 04:08 | disposition left against medical advice (07) ==
LOC: ER 03:16
DX: K85.90 Acute pancreatitis without necrosis or infection, unspecified (principal); E11.9 Type 2 diabetes mellitus without complications; I10 Essential (primary) hypertension; Z79.4 Long term (current) use of insulin
CPT/HCPCS: 36415; 80053; 85025; 93005; 99284

== ENCOUNTER 2020-12-13 13:11 | Emergency (ER) | payer OTHER ==
[~2020-12-13] VITALS: Ht 175.3 cm; Wt 80.0 kg
[2020-12-13 13:45] VITALS: BP 156/90
[2020-12-13] MEDS ORDERED: ONDANSETRON HCL 4MG/2ML INJ IV STA (13:48)
[2020-12-13] MEDS ORDERED: FAMOTIDINE 20MG/2ML VIAL IV STA (13:48)
[2020-12-13] MEDS ORDERED: SODIUM CHLORIDE 0.9% 1,000 ML IV ONE (14:00)
[2020-12-13 14:30] LABS: EOSINOPHILS % 0.5 % (0.0-5.0); HEMATOCRIT. 38.6 % (42.0-52.0); HEMOGLOBIN. 12.8 g/dL (14.0-18.0); MEAN CORPUSCULAR HEMOGLOBIN 30.3 pg (28.0-32.0); MEAN CORPUSCULAR VOLUME 91.2 fL (80.0-94.0); MEAN PLATELET VOLUME 11.2 fl (7.4-10.4); MONOCYTES % 12.4 % (2.0-8.0); NEUTROPHILS % 53.1 % (40.0-76.0); PLATELET 61 x1000/uL (130-400); RED BLOOD CELL COUNT 4.24 mill/uL (4.7-6.1); RED CELL DISTRIBUTION WIDTH 16.9 % (11.6-14.6)
[2020-12-13 14:37] LABS: CHLORIDE 103 mEq/L (98-107)
[2020-12-13 14:38] LABS: INR 1.2; PROTHROMBIN TIME 12.9 sec (9.6-11.0)
[2020-12-13] MEDS ORDERED: POTASSIUM CHLORIDE 20MEQ TABLET SR PO ONE (14:45)
[2020-12-13 14:55] LABS: ETHANOL BLOOD 435 mg/dL
[2020-12-13] MEDS ORDERED: KETOROLAC 30MG/ML VIAL IV ONE (15:00)
[2020-12-13 15:19] LABS: CLARITY URINE CLEAR (CLEAR); COLOR URINE YELLOW (YELLOW); KETONES URINE NEGATIVE (NEGATIVE); LEUKOCYTE ESTERASE URINE NEGATIVE (NEGATIVE); NITRITE URINE NEGATIVE (NEGATIVE); OCCULT BLOOD URINE NEGATIVE (NEGATIVE); PH URINE 6.5 (4.5-8.0); PROTEIN URINE NEGATIVE (NEGATIVE); SPECIFIC GRAVITY URINE 1.016 (1.005-1.030); UROBILINOGEN URINE 0.2 E.U./dL (0.2-1.0)
[2020-12-13] MEDS ORDERED: INSULIN REGULAR (HUMULIN R) 300UNITS/3ML VIAL IV ONE (15:30)
[2020-12-13 15:37] LABS: OPIATES URINE SCREEN NEGATIVE (NEGATIVE)
[2020-12-13 15:38] LABS: *AMPHETAMINES SCREEN URINE NEGATIVE (NEGATIVE); *BARBITURATES SCREEN URINE NEGATIVE (NEGATIVE); *BENZODIAZEPINES SCREEN URINE NEGATIVE (NEGATIVE); *COCAINE SCREEN URINE NEGATIVE (NEGATIVE); CANNABINOID URINE SCREEN NEGATIVE (NEGATIVE); METHADONE URINE SCREEN NEGATIVE (NEGATIVE); PHENCYCLIDINE URINE SCREEN NEGATIVE (NEGATIVE)
== END 2020-12-14 16:03 | disposition left against medical advice (07) ==
LOC: ER 13:11 → CANBEDREQ 16:08 → ER 12-14 16:03
DX: F10.229 Alcohol dependence with intoxication, unspecified (principal); Y90.8 Blood alcohol level of 240 mg/100 ml or more; K70.30 Alcoholic cirrhosis of liver without ascites; E11.9 Type 2 diabetes mellitus without complications; I10 Essential (primary) hypertension
CPT/HCPCS: 36415; 71045; 80053; 80305; 80320; 81003; 83690; 83880; 84484; 85025; 85610; 93005; 96361; 96374; 96375; 99285; J2405; J3490; J7030; Z7610; G0480

== ENCOUNTER 2020-12-14 19:56 | Emergency (ER) | payer OTHER ==
[~2020-12-14] VITALS: Ht 170.2 cm; Wt 73.0 kg
[2020-12-14 20:23] VITALS: BP 151/101
== END 2020-12-14 21:06 | disposition left against medical advice (07) ==
LOC: ER 19:56
DX: Z53.21 Procedure and treatment not carried out due to patient leaving prior to being seen by health care provider (principal)

== ENCOUNTER 2020-12-15 13:26 | Inpatient (IN) | payer OTHER ==
[~2020-12-15] VITALS: Ht 167.6 cm; Wt 74.8 kg
[2020-12-15] MEDS ORDERED: PANTOPRAZOLE SODIUM 40 MG/VIAL IV STA (13:46)
[2020-12-15] MEDS ORDERED: ONDANSETRON HCL 4MG/2ML INJ IV STA (13:46)
[2020-12-15] MEDS ORDERED: SODIUM CHLORIDE 0.9% 1,000 ML IV ONE (14:00)
[2020-12-15 14:25] LABS: CHLORIDE 103 mEq/L (98-107)
[2020-12-15 14:26] LABS: INR 1.2; PROTHROMBIN TIME 12.7 sec (9.6-11.0)
[2020-12-15] MEDS ORDERED: OCTREOTIDE ACETATE 50 MCG/ML 1ML IV STA (14:28)
[2020-12-15] MEDS ORDERED: CEFTRIAXONE 1 G PREMIX 50 ML IV ONE (14:30)
[2020-12-15 14:33] LABS: BASOPHILS % 0.9 % (0.0-2.0); EOSINOPHILS % 0.4 % (0.0-5.0); HEMATOCRIT. 35.3 % (42.0-52.0); HEMOGLOBIN. 11.7 g/dL (14.0-18.0); LYMPHOCYTES % 32.8 % (20.0-50.0); MEAN CORPUSCULAR HEMOGLOBIN 29.9 pg (28.0-32.0); MEAN CORPUSCULAR VOLUME 90.4 fL (80.0-94.0); MEAN PLATELET VOLUME 10.5 fl (7.4-10.4); MONOCYTES % 9.6 % (2.0-8.0); NEUTROPHILS % 56.3 % (40.0-76.0)
[2020-12-15 14:42] LABS: ETHANOL BLOOD 429 mg/dL
[2020-12-15] MEDS ORDERED: KCL 20MEQ/100ML PREMIX 100 ML IV ONE (14:45)
[2020-12-15 14:54] LABS: PLATELET 46 x1000/uL (130-400)
[2020-12-15 14:58] LABS: PLATELET ESTIMATE MARKEDLY DECREASED
[2020-12-15 16:25] LABS: CLARITY URINE CLEAR (CLEAR); COLOR URINE YELLOW (YELLOW); KETONES URINE TRACE (NEGATIVE); LEUKOCYTE ESTERASE URINE NEGATIVE (NEGATIVE); NITRITE URINE NEGATIVE (NEGATIVE); OCCULT BLOOD URINE NEGATIVE (NEGATIVE); PROTEIN URINE NEGATIVE (NEGATIVE); SPECIFIC GRAVITY URINE 1.023 (1.005-1.030)
[2020-12-15] MEDS ORDERED: LORAZEPAM 2MG/ML CPJ IV ONE (16:30)
[2020-12-15 16:35] LABS: *BARBITURATES SCREEN URINE NEGATIVE (NEGATIVE); *BENZODIAZEPINES SCREEN URINE NEGATIVE (NEGATIVE); *COCAINE SCREEN URINE NEGATIVE (NEGATIVE); METHADONE URINE SCREEN NEGATIVE (NEGATIVE); OPIATES URINE SCREEN NEGATIVE (NEGATIVE)
[2020-12-15 16:36] LABS: *AMPHETAMINES SCREEN URINE NEGATIVE (NEGATIVE); CANNABINOID URINE SCREEN NEGATIVE (NEGATIVE); PHENCYCLIDINE URINE SCREEN NEGATIVE (NEGATIVE)
[2020-12-15] MEDS ORDERED: ONDANSETRON HCL 4MG/2ML INJ IV ONE (16:45)
[2020-12-15 20:45] VITALS: BP 124/84
[2020-12-15 21:00] VITALS: BP 124/84
[2020-12-15 22:00] VITALS: BP 140/88
[2020-12-15] MEDS ORDERED: GUAIFENESIN 200MG/10ML SUGAR FREE UDC PO PRN (22:00)
[2020-12-15] MEDS ORDERED: ACETAMINOPHEN 325MG TABLET PO PRN (22:00)
[2020-12-15] MEDS ORDERED: CLONIDINE 0.1MG TABLET PO PRN (22:00)
[2020-12-15] MEDS ORDERED: MORPHINE SULFATE 2 MG/ML CPJ (NOT FOR IM USE) IV PRN (22:00)
[2020-12-15] MEDS ORDERED: MAGNESIUM/ALUMINUM HYDROXIDE/SIMETHICONE 30ML UDC PO PRN (22:00)
[2020-12-15] MEDS ORDERED: HYDROCODONE/ACETAMINOPHEN 5/325MG TABLET PO PRN (22:00)
[2020-12-15] MEDS ORDERED: NA PHOS,M-B/NA PHOS,DI-BA ENEMA 118ML PR PRN (22:00)
[2020-12-15] MEDS ORDERED: DOCUSATE SODIUM 100MG CAPSULE PO PRN (22:00)
[2020-12-15] MEDS ORDERED: IPRATROPIUM/ALBUTEROL 0.5-3(2.5)MG/3ML NEB NEB PRN (22:00)
[2020-12-15] MEDS ORDERED: ONDANSETRON HCL 4MG/2ML INJ IV PRN (22:00)
[2020-12-15 23:17] LABS: HEMATOCRIT 32.4 % (42.0-52.0); HEMOGLOBIN 10.8 g/dL (14.0-18.0)
[2020-12-15 23:22] LABS: CHLORIDE 107 mEq/L (98-107)
[2020-12-15] MEDS: SODIUM CHLORIDE 0.45% 1,000 ML IV SCH (23:53)
[2020-12-16] VITALS (16 sets, daily range): BP systolic 134–160; BP diastolic 86–98
[2020-12-16] MEDS ORDERED: DEXTROSE 50% WATER 50ML SYRINGE IV PRN (00:45)
[2020-12-16] MEDS: LORAZEPAM 2MG/ML CPJ IV PRN ×3 (02:21→18:07)
[2020-12-16] MEDS: DIPHENHYDRAMINE 50MG/ML VIAL IV PRN ×2 (02:25→22:09)
[2020-12-16 05:30] LABS: BASOPHILS % 1.3 % (0.0-2.0); EOSINOPHILS % 1.1 % (0.0-5.0); HEMATOCRIT. 30.4 % (42.0-52.0); HEMOGLOBIN. 10.1 g/dL (14.0-18.0); LYMPHOCYTES % 34.5 % (20.0-50.0); MEAN CORPUSCULAR HEMOGLOBIN 29.9 pg (28.0-32.0); MEAN CORPUSCULAR VOLUME 89.9 fL (80.0-94.0); MEAN PLATELET VOLUME 10.6 fl (7.4-10.4); MONOCYTES % 13.5 % (2.0-8.0); NEUTROPHILS % 49.6 % (40.0-76.0); RED BLOOD CELL COUNT 3.38 mill/uL (4.7-6.1); RED CELL DISTRIBUTION WIDTH 16.7 % (11.6-14.6)
[2020-12-16 05:35] LABS: CHLORIDE 104 mEq/L (98-107)
[2020-12-16 05:45] LABS: LDL CHOLESTEROL 134 mg/dL (5-100)
[2020-12-16 05:46] LABS: HDL CHOLESTEROL 72 mg/dL (40-59); T4 FREE 0.82 ng/dL (0.76-1.46)
[2020-12-16] MEDS: BLOOD SUGAR DIAGNOSTIC STRIP TEST SCH ×4 (07:30→20:40)
[2020-12-16 08:22] LABS: PLATELET 29 x1000/uL (130-400)
[2020-12-16] MEDS: INSULIN LISPRO 100 UNITS/ML SUBCUT SCH ×4 (09:44→20:54)
[2020-12-16] MEDS: SODIUM CHLORIDE 0.45% 1,000 ML IV SCH (10:30)
[2020-12-16] MEDS: OCTREOTIDE 1,000 MCG in SODIUM CHLORIDE 0.9% 98 ML IV SCH (15:00)
[2020-12-16] MEDS ORDERED: FOLIC ACID 1 MG, THIAMINE HCL 100 MG, MVI, ADULT NO.1 10 ML in DEXTROSE 5% WATER 1,000 ML IV SCH (15:00)
[2020-12-16] MEDS: PANTOPRAZOLE SODIUM 40 MG/VIAL IV SCH (20:40)
[2020-12-17] VITALS (13 sets, daily range): BP systolic 136–148; BP diastolic 79–95
[2020-12-17] MEDS: LORAZEPAM 2MG/ML CPJ IV PRN (03:09)
[2020-12-17 03:34] LABS: BASOPHILS % 0.8 % (0.0-2.0); EOSINOPHILS % 1.7 % (0.0-5.0); HEMATOCRIT. 30.6 % (42.0-52.0); HEMOGLOBIN. 10.2 g/dL (14.0-18.0); LYMPHOCYTES % 20.4 % (20.0-50.0); MEAN CORPUSCULAR HEMOGLOBIN 29.6 pg (28.0-32.0); MEAN CORPUSCULAR VOLUME 89.1 fL (80.0-94.0); MEAN PLATELET VOLUME 7.7 fl (7.4-10.4); NEUTROPHILS % 72.1 % (40.0-76.0); RED BLOOD CELL COUNT 3.43 mill/uL (4.7-6.1); RED CELL DISTRIBUTION WIDTH 16.8 % (11.6-14.6)
[2020-12-17 03:43] LABS: CHLORIDE 100 mEq/L (98-107)
[2020-12-17 03:44] LABS: PLATELET 45 x1000/uL (130-400)
[2020-12-17 03:48] LABS: INR 1.3; PROTHROMBIN TIME 13.5 sec (9.6-11.0)
[2020-12-17 03:50] LABS: TOTAL IRON BINDING CAPACITY 374 ug/dL (250-450)
[2020-12-17 04:00] LABS: FERRITIN 146 ng/mL (22-322)
[2020-12-17 04:12] LABS: HEPATITIS B SURFACE ANTIGEN NEGATIVE
[2020-12-17 04:14] LABS: VITAMIN B12 SERUM 1767 pg/mL (211-911)
[2020-12-17 04:22] LABS: FOLIC ACID (FOLATE) SERUM > 20.00 ng/mL (>5.38)
[2020-12-17 04:41] LABS: HEPATITIS A AB IGM NEGATIVE (NEGATIVE)
[2020-12-17] MEDS: OCTREOTIDE 1,000 MCG in SODIUM CHLORIDE 0.9% 98 ML IV SCH (06:22)
[2020-12-17] MEDS: DIPHENHYDRAMINE 50MG/ML VIAL IV PRN (06:31)
[2020-12-17] MEDS: SODIUM CHLORIDE 0.45% 1,000 ML IV SCH (06:35)
[2020-12-17] MEDS: BLOOD SUGAR DIAGNOSTIC STRIP TEST SCH (07:59)
[2020-12-17] MEDS: PANTOPRAZOLE SODIUM 40 MG/VIAL IV SCH (08:17)
[2020-12-17] MEDS: INSULIN LISPRO 100 UNITS/ML SUBCUT SCH (08:19)
[2020-12-17] MEDS ORDERED: POTASSIUM CHLORIDE 20MEQ TABLET SR PO NR (08:45)
[2020-12-17] MEDS ORDERED: MAGNESIUM 2 G PREMIX 50 ML IV SCH (11:00)
[2020-12-17] MEDS ORDERED: DIAZEPAM 5 MG/ML 2ML CPJ ONE (13:56)
== END 2020-12-17 17:43 | disposition left against medical advice (07) | DRG 253 ==
LOC: ER 13:26 → 5EST 15:41 → ENRESERV 19:21
PROVIDERS: ADMIT Internal Medicine; ATTEND Internal Medicine
PROC: 30233R1 Transfusion of Nonautologous Platelets into Peripheral Vein, Percutaneous Approach (ICD-10-PCS; principal; 2020-12-16)
DX: K92.0 Hematemesis (principal); I85.11 Secondary esophageal varices with bleeding; D69.6 Thrombocytopenia, unspecified; E46 Unspecified protein-calorie malnutrition; E83.42 Hypomagnesemia; G90.8 Other disorders of autonomic nervous system; E11.65 Type 2 diabetes mellitus with hyperglycemia; R56.9 Unspecified convulsions; K70.30 Alcoholic cirrhosis of liver without ascites; D64.9 Anemia, unspecified; E78.5 Hyperlipidemia, unspecified; E87.6 Hypokalemia; I10 Essential (primary) hypertension; K76.0 Fatty (change of) liver, not elsewhere classified; Z53.29 Procedure and treatment not carried out because of patient's decision for other reasons; Z20.822 Contact with and (suspected) exposure to COVID-19; F10.139 Alcohol abuse with withdrawal, unspecified; Y90.8 Blood alcohol level of 240 mg/100 ml or more; F10.129 Alcohol abuse with intoxication, unspecified; Z68.26 Body mass index [BMI] 26.0-26.9, adult; Z71.41 Alcohol abuse counseling and surveillance of alcoholic
CPT/HCPCS: 36415; 71045; 80048; 80053; 80061; 80076; 80305; 80320; 81003; 82105; 82248; 82378; 82607; 82728; 82746; 82962; 83036; 83540; 83550; 83605; 83735; 84100; 84439; 84443; 84484; 85014; 85018; 85025; 85044; 86705; 86709; 86803; 86850; 86900; 87340; 87426; 93005; 93306; 93970; 99291; C9113; J0696; J1200; J1815; J2060; J2354; J2405; J3411; J3475; J3480; J3490; J7030; J7050; J7070; P9034; G0480

== ENCOUNTER 2020-12-31 20:39 | Emergency (ER) | payer OTHER ==
[~2020-12-31] VITALS: Ht 167.6 cm; Wt 72.0 kg
[2020-12-31 20:54] VITALS: BP 148/88
[2020-12-31] MEDS ORDERED: ONDANSETRON HCL 4MG/2ML INJ IV STA (21:16)
[2020-12-31] MEDS ORDERED: KETOROLAC 30MG/ML VIAL IV STA (21:16)
[2020-12-31] MEDS ORDERED: SODIUM CHLORIDE 0.9% 1,000 ML IV ONE (21:30)
== END 2020-12-31 21:55 | disposition left against medical advice (07) ==
LOC: ER 20:39
DX: F10.229 Alcohol dependence with intoxication, unspecified (principal); Y90.9 Presence of alcohol in blood, level not specified; E11.9 Type 2 diabetes mellitus without complications; I10 Essential (primary) hypertension
CPT/HCPCS: 99283; J7030

== ENCOUNTER 2021-01-01 12:05 | Emergency (ER) | payer OTHER ==
[~2021-01-01] VITALS: Ht 170.2 cm; Wt 72.0 kg
[2021-01-01] MEDS ORDERED: SODIUM CHLORIDE 0.9% 1,000 ML IV ONE (12:30)
[2021-01-01 12:43] LABS: BASOPHILS % 2.5 % (0.0-2.0); EOSINOPHILS % 0.4 % (0.0-5.0); HEMOGLOBIN. 10.8 g/dL (14.0-18.0); MEAN CORPUSCULAR HEMOGLOBIN 29.9 pg (28.0-32.0); MEAN PLATELET VOLUME 10.4 fl (7.4-10.4); MONOCYTES % 13.1 % (2.0-8.0); RED CELL DISTRIBUTION WIDTH 18.3 % (11.6-14.6)
[2021-01-01 12:48] LABS: INR 1.2; PROTHROMBIN TIME 13.1 sec (9.6-11.0)
[2021-01-01 12:49] LABS: CHLORIDE 105 mEq/L (98-107)
[2021-01-01] MEDS ORDERED: HYDROMORPHONE HCL/PF 2MG/ML CPJ IV ONE (13:00)
[2021-01-01] MEDS ORDERED: ONDANSETRON HCL 4MG/2ML INJ IV ONE (13:15)
[2021-01-01] MEDS ORDERED: PANTOPRAZOLE SODIUM 40 MG/VIAL IV ONE (14:30)
[2021-01-01] MEDS ORDERED: FAMOTIDINE 20MG/2ML VIAL IV NR (15:00)
[2021-01-01] MEDS ORDERED: LORAZEPAM 2MG/ML CPJ IV ONE (16:00)
[2021-01-01] MEDS ORDERED: IOHEXOL-300 100 ML BOTTLE ONE (16:09)
[2021-01-01 18:36] VITALS: BP 143/88
[2021-01-03 09:53] LABS: PLATELET 26 x1000/uL (130-400)
== END 2021-01-01 17:00 | disposition short-term general hospital (02) ==
LOC: ER 12:05
DX: K74.60 Unspecified cirrhosis of liver (principal); K92.0 Hematemesis; R79.89 Other specified abnormal findings of blood chemistry; F10.239 Alcohol dependence with withdrawal, unspecified; R41.0 Disorientation, unspecified; F90.9 Attention-deficit hyperactivity disorder, unspecified type; E11.9 Type 2 diabetes mellitus without complications; K76.9 Liver disease, unspecified; Z79.4 Long term (current) use of insulin; Z79.899 Other long term (current) drug therapy; E86.0 Dehydration; Y90.9 Presence of alcohol in blood, level not specified
CPT/HCPCS: 36415; 74177; 76705; 80053; 83605; 83690; 84484; 85025; 85610; 86850; 86900; 86901; 93005; 96361; 96374; 96375; 99291; J1170; J2060; J2405; J3490; J7030; Q9967; Z7610

== ENCOUNTER 2021-02-09 22:25 | Emergency (ER) | payer OTHER ==
[~2021-02-09] VITALS: Ht 175.3 cm; Wt 86.0 kg
[2021-02-09 22:27] VITALS: BP 154/98
[2021-02-09] MEDS ORDERED: MAGNESIUM/ALUMINUM HYDROXIDE/SIMETHICONE 30ML UDC PO STA (23:30)
[2021-02-09] MEDS ORDERED: ONDANSETRON 4MG ODT PO STA (23:30)
== END 2021-02-09 23:30 | disposition left against medical advice (07) ==
LOC: ER 22:52
DX: R10.13 Epigastric pain (principal); F10.129 Alcohol abuse with intoxication, unspecified; Y90.9 Presence of alcohol in blood, level not specified; R00.0 Tachycardia, unspecified; I10 Essential (primary) hypertension; E11.9 Type 2 diabetes mellitus without complications
CPT/HCPCS: 93005; 99283

== ENCOUNTER 2021-03-01 08:09 | Emergency (ER) | payer OTHER ==
[~2021-03-01] VITALS: Ht 167.6 cm; Wt 73.0 kg
[2021-03-01] MEDS ORDERED: ONDANSETRON HCL 4MG/2ML INJ IV STA (08:22)
[2021-03-01] MEDS ORDERED: LORAZEPAM 2MG/ML CPJ IV ONE (08:30)
[2021-03-01] MEDS ORDERED: SODIUM CHLORIDE 0.9% 1,000 ML IV ONE (08:30)
[2021-03-01] MEDS ORDERED: FOLIC ACID 1 MG, THIAMINE HCL 100 MG, MVI, ADULT NO.1 10 ML in DEXTROSE 5% WATER 1,000 ML IV ONE (08:45)
[2021-03-01 09:36] LABS: BASOPHILS % 2.1 % (0.0-2.0); CHLORIDE 103 mEq/L (98-107); EOSINOPHILS % 0.6 % (0.0-5.0); HEMATOCRIT. 29.2 % (42.0-52.0); HEMOGLOBIN. 9.4 g/dL (14.0-18.0); LYMPHOCYTES % 43.9 % (20.0-50.0); MEAN CORPUSCULAR HEMOGLOBIN 26.5 pg (28.0-32.0); MEAN CORPUSCULAR VOLUME 82.5 fL (80.0-94.0); MONOCYTES % 9.4 % (2.0-8.0); RED BLOOD CELL COUNT 3.54 mill/uL (4.7-6.1); RED CELL DISTRIBUTION WIDTH 20.5 % (11.6-14.6)
[2021-03-01 09:39] LABS: INR 1.3; PROTHROMBIN TIME 13.6 sec (9.6-11.0)
[2021-03-01 09:48] LABS: ETHANOL BLOOD 367 mg/dL
[2021-03-01 10:07] LABS: PLATELET ESTIMATE MARKEDLY DECREASED
[2021-03-01 10:10] LABS: MEAN PLATELET VOLUME 9.7 fl (7.4-10.4); PLATELET 21 x1000/uL (130-400)
[2021-03-01 14:40] VITALS: BP 140/83
== END 2021-03-01 14:40 | disposition short-term general hospital (02) ==
LOC: ER 08:11 → CANBEDREQ 14:20 → ER 14:40
DX: F10.239 Alcohol dependence with withdrawal, unspecified (principal); R11.10 Vomiting, unspecified; I49.9 Cardiac arrhythmia, unspecified; E11.9 Type 2 diabetes mellitus without complications; Y90.8 Blood alcohol level of 240 mg/100 ml or more
CPT/HCPCS: 36415; 71045; 80053; 80320; 83605; 83690; 84484; 85025; 85610; 93005; 96361; 96374; 96375; 99285; J2060; J2405; J3411; J3490; J7030; J7070; G0480

== ENCOUNTER 2021-03-11 14:17 | Emergency (ER) | payer OTHER ==
[~2021-03-11] VITALS: Ht 165.1 cm; Wt 73.0 kg
[2021-03-11] MEDS ORDERED: ASPIRIN 325MG EC TABLET PO ONE (15:45)
[2021-03-11 16:10] LABS: HEMATOCRIT. 26.5 % (42.0-52.0); HEMOGLOBIN. 8.7 g/dL (14.0-18.0); MEAN CORPUSCULAR HEMOGLOBIN 26.7 pg (28.0-32.0); MEAN CORPUSCULAR VOLUME 80.9 fL (80.0-94.0); MEAN PLATELET VOLUME 10.4 fl (7.4-10.4); PLATELET 58 x1000/uL (130-400); RED BLOOD CELL COUNT 3.27 mill/uL (4.7-6.1); RED CELL DISTRIBUTION WIDTH 20.1 % (11.6-14.6)
[2021-03-11 16:18] LABS: CHLORIDE 109 mEq/L (98-107)
[2021-03-11 16:29] VITALS: BP 153/82
[2021-03-11 16:57] LABS: PLATELET ESTIMATE MARKEDLY DECREASED
== END 2021-03-11 16:33 | disposition left against medical advice (07) ==
LOC: ER 14:17 → CANBEDREQ 19:13
DX: R07.2 Precordial pain (principal); R00.0 Tachycardia, unspecified
CPT/HCPCS: 36415; 71045; 80053; 83880; 84484; 85025; 85379; 93005; 99285

== ENCOUNTER 2021-03-12 00:15 | Emergency (ER) | payer OTHER ==
[~2021-03-12] VITALS: Ht 167.6 cm; Wt 73.0 kg
[2021-03-12 02:59] VITALS: BP 112/71
[2021-03-12 04:10] LABS: HEMATOCRIT. 27.5 % (42.0-52.0); HEMOGLOBIN. 8.6 g/dL (14.0-18.0); MEAN CORPUSCULAR HEMOGLOBIN 25.7 pg (28.0-32.0); MEAN CORPUSCULAR VOLUME 82.1 fL (80.0-94.0); MEAN PLATELET VOLUME 10.4 fl (7.4-10.4); PLATELET 67 x1000/uL (130-400); RED BLOOD CELL COUNT 3.35 mill/uL (4.7-6.1); RED CELL DISTRIBUTION WIDTH 20.2 % (11.6-14.6)
[2021-03-12 04:20] LABS: CHLORIDE 110 mEq/L (98-107)
[2021-03-12 04:58] LABS: PLATELET ESTIMATE DECREASED
== END 2021-03-12 05:53 | disposition left against medical advice (07) ==
LOC: ER 01:04
DX: R07.89 Other chest pain (principal); E11.9 Type 2 diabetes mellitus without complications; I10 Essential (primary) hypertension
CPT/HCPCS: 36415; 71045; 80053; 84484; 85025; 85379; 93005; 99285

== ENCOUNTER 2021-03-13 18:08 | Inpatient (IN) | payer OTHER ==
[~2021-03-13] VITALS: Ht 167.6 cm; Wt 73.0 kg
[2021-03-13] MEDS ORDERED: SODIUM CHLORIDE 0.9% 1,000 ML IV ONE (20:00)
[2021-03-13 21:03] LABS: CHLORIDE 108 mEq/L (98-107)
[2021-03-13 21:08] LABS: BASOPHILS % 3.6 % (0.0-2.0); HEMATOCRIT. 29.3 % (42.0-52.0); HEMOGLOBIN. 9.1 g/dL (14.0-18.0); LYMPHOCYTES % 35.8 % (20.0-50.0); MEAN CORPUSCULAR VOLUME 80.5 fL (80.0-94.0); MEAN PLATELET VOLUME 9.9 fl (7.4-10.4); MONOCYTES % 13.7 % (2.0-8.0); NEUTROPHILS % 45.9 % (40.0-76.0); PLATELET 71 x1000/uL (130-400); RED BLOOD CELL COUNT 3.64 mill/uL (4.7-6.1); RED CELL DISTRIBUTION WIDTH 20.3 % (11.6-14.6)
[2021-03-13] MEDS ORDERED: ACETAMINOPHEN 325MG TABLET PO ONE (21:15)
[2021-03-13 21:18] LABS: ETHANOL BLOOD 414 mg/dL
[2021-03-13] MEDS ORDERED: NITROGLYCERIN OINT 1GM/INCH UDPKT TD ONE (21:30)
[2021-03-13] MEDS ORDERED: ASPIRIN 81MG TABLET PO ONE (21:30)
[2021-03-13] MEDS ORDERED: FOLIC ACID 1 MG, THIAMINE HCL 100 MG, MVI, ADULT NO.1 10 ML in DEXTROSE 5% WATER 1,000 ML IV ONE (21:45)
[2021-03-13 21:47] LABS: INR 1.2; PROTHROMBIN TIME 12.9 sec (9.6-11.0)
[2021-03-14] MEDS ORDERED: LORAZEPAM 0.5MG TABLET PO PRN (07:15)
[2021-03-14] MEDS ORDERED: LORAZEPAM 1MG TABLET PO PRN (07:15)
[2021-03-14] MEDS ORDERED: DEXTROSE 50% WATER 50ML SYRINGE IV PRN (14:15)
[2021-03-14] MEDS: BLOOD SUGAR DIAGNOSTIC STRIP TEST SCH ×3 (14:24→21:28)
[2021-03-14] MEDS: INSULIN LISPRO 100 UNITS/ML SUBCUT SCH ×3 (14:29→22:39)
[2021-03-14] MEDS: DILTIAZEM HCL 30MG TABLET PO SCH ×2 (19:23→23:44)
[2021-03-14 22:00] VITALS: BP 163/95
[2021-03-14 22:57] VITALS: BP 164/96
[2021-03-14] MEDS ORDERED: ONDANSETRON HCL 4MG/2ML INJ IV PRN (23:30)
[2021-03-15] VITALS (10 sets, daily range): BP systolic 123–153; BP diastolic 67–90
[2021-03-15] MEDS: BLOOD SUGAR DIAGNOSTIC STRIP TEST SCH ×2 (06:04→11:50)
[2021-03-15] MEDS: DILTIAZEM HCL 30MG TABLET PO SCH ×2 (06:04→11:30)
[2021-03-15] MEDS ORDERED: FERR325T30 PO (07:35)
[2021-03-15] MEDS ORDERED: TRAZ-251 PO (07:35)
[2021-03-15] MEDS ORDERED: ATOR10TA69 PO (07:35)
[2021-03-15] MEDS ORDERED: GLYB1TAB35 PO (07:35)
[2021-03-15 07:43] LABS: CHLORIDE 100 mEq/L (98-107); HEMATOCRIT. 28.9 % (42.0-52.0); MEAN CORPUSCULAR HEMOGLOBIN 24.8 pg (28.0-32.0); MEAN CORPUSCULAR VOLUME 79.4 fL (80.0-94.0); MEAN PLATELET VOLUME 10.5 fl (7.4-10.4); PLATELET 52 x1000/uL (130-400); RED BLOOD CELL COUNT 3.64 mill/uL (4.7-6.1); RED CELL DISTRIBUTION WIDTH 20.6 % (11.6-14.6)
[2021-03-15 07:57] LABS: *AMPHETAMINES SCREEN URINE NEGATIVE (NEGATIVE); *BARBITURATES SCREEN URINE NEGATIVE (NEGATIVE); *BENZODIAZEPINES SCREEN URINE PRESUMTIVE POSITIVE (NEGATIVE); *COCAINE SCREEN URINE NEGATIVE (NEGATIVE); METHADONE URINE SCREEN NEGATIVE (NEGATIVE)
[2021-03-15 07:58] LABS: CANNABINOID URINE SCREEN NEGATIVE (NEGATIVE); OPIATES URINE SCREEN NEGATIVE (NEGATIVE); PHENCYCLIDINE URINE SCREEN NEGATIVE (NEGATIVE)
[2021-03-15] MEDS: INSULIN LISPRO 100 UNITS/ML SUBCUT SCH ×2 (08:05→12:19)
[2021-03-15] MEDS ORDERED: ASPIRIN 81MG EC TABLET PO SCH (09:00)
[2021-03-15] MEDS ORDERED: MAGNESIUM OXIDE 400MG TABLET PO SCH (11:00)
[2021-03-15] MEDS ORDERED: POTASSIUM CHLORIDE 20MEQ TABLET SR PO NR (11:00)
[2021-03-15] MEDS ORDERED: LORAZEPAM 2MG/ML CPJ IV PRN (12:45)
[2021-03-15] MEDS ORDERED: CHLORDIAZEPOXIDE 5 MG CAPSULE PO SCH (14:00)
[2021-03-15] MEDS ORDERED: FOLIC ACID 1 MG, THIAMINE HCL 100 MG, MVI, ADULT NO.1 10 ML in DEXT 5%/0.9% NACL 1,000 ML IV ONE (15:00)
[2021-03-16 10:55] LABS: PLATELET ESTIMATE DECREASED
== END 2021-03-15 15:30 | disposition home or self-care (01) | DRG 190 ==
LOC: ER 18:29 → MICUSO 03-14 00:33 → EDBEDREQDT 03-14 00:36 → EDBEDREQTM 03-14 00:36 → EDBEDREQ 03-14 00:36 → 3WST 03-14 21:07
PROVIDERS: ADMIT Internal Medicine; ATTEND Internal Medicine
DX: I21.4 Non-ST elevation (NSTEMI) myocardial infarction (principal); D69.6 Thrombocytopenia, unspecified; E11.65 Type 2 diabetes mellitus with hyperglycemia; I16.0 Hypertensive urgency; E83.42 Hypomagnesemia; K74.60 Unspecified cirrhosis of liver; E87.6 Hypokalemia; I10 Essential (primary) hypertension; F10.129 Alcohol abuse with intoxication, unspecified; Z79.4 Long term (current) use of insulin; Z82.49 Family history of ischemic heart disease and other diseases of the circulatory system; Z71.41 Alcohol abuse counseling and surveillance of alcoholic; E87.8 Other disorders of electrolyte and fluid balance, not elsewhere classified; R91.8 Other nonspecific abnormal finding of lung field
CPT/HCPCS: 36415; 71045; 80048; 80053; 80305; 80320; 82962; 83036; 83735; 84484; 85025; 93005; 93306; 93970; 99291; J1815; J2405; J3411; J3490; J7030; J7042; J7070; G0480

== ENCOUNTER 2021-04-07 02:22 | Emergency (ER) | payer OTHER ==
[~2021-04-07] VITALS: Ht 167.6 cm; Wt 160.0 kg
[~2021-04-07 02:22] MED LIST changes: +ATOR10TA69 PO; +FERR325T30 PO; +GLYB1TAB35 PO; +TRAZ-251 PO
[2021-04-07 03:08] LABS: HEMOGLOBIN. 9.4 g/dL (14.0-18.0); RED BLOOD CELL COUNT 3.98 mill/uL (4.7-6.1)
[2021-04-07 03:14] LABS: HEMATOCRIT. 29.9 % (42.0-52.0); MEAN CORPUSCULAR HEMOGLOBIN 23.6 pg (28.0-32.0); MEAN CORPUSCULAR VOLUME 75.2 fL (80.0-94.0); RED CELL DISTRIBUTION WIDTH 19.4 % (11.6-14.6)
[2021-04-07 03:16] LABS: CHLORIDE 103 mEq/L (98-107)
[2021-04-07] MEDS ORDERED: DEXT 5%/0.9% NACL 1,000 ML IV ONE (03:30)
[2021-04-07] MEDS ORDERED: LORAZEPAM 2MG/ML CPJ IV ONE ×2 (03:30→06:00)
[2021-04-07 03:39] LABS: PLATELET ESTIMATE MARKEDLY DECREASED
[2021-04-07 03:41] LABS: MEAN PLATELET VOLUME 8.7 fl (7.4-10.4); PLATELET 21 x1000/uL (130-400)
[2021-04-07 07:04] VITALS: BP 147/90
== END 2021-04-07 07:54 | disposition short-term general hospital (02) ==
LOC: ER 02:22
DX: R07.89 Other chest pain (principal); F10.229 Alcohol dependence with intoxication, unspecified; E11.9 Type 2 diabetes mellitus without complications; I10 Essential (primary) hypertension; Z79.899 Other long term (current) drug therapy
CPT/HCPCS: 36415; 71045; 80053; 83880; 84484; 85025; 93005; 96361; 96374; 96376; 99285; J2060; J7042

== ENCOUNTER 2021-04-26 04:39 | Emergency (ER) | payer OTHER ==
[~2021-04-26] VITALS: Ht 162.6 cm; Wt 77.0 kg
[2021-04-26 04:45] VITALS: BP 137/86
[2021-04-26] MEDS ORDERED: IBUPROFEN 600MG TABLET PO STA (05:16)
[2021-04-26] MEDS ORDERED: TETRACAINE 0.5% OPHTH DROPS 4ML BOTHEYE ONE (05:30)
[2021-04-26] MEDS ORDERED: FLUORESCEIN SODIUM 1MG/STRIP BOTHEYE ONE (05:30)
[2021-04-26] MEDS ORDERED: BALANCED SALT IRRIG SOLN 15ML IR ONE (05:30)
[2021-04-26] MEDS ORDERED: POLY15DR31 EACHEYE (09:55)
[2021-04-26] MEDS ORDERED: CIPHCO EACH EAR (09:55)
== END 2021-04-26 10:44 | disposition home or self-care (01) ==
LOC: ER 05:10
DX: T15.92XA Foreign body on external eye, part unspecified, left eye, initial encounter (principal); T15.91XA Foreign body on external eye, part unspecified, right eye, initial encounter; E11.9 Type 2 diabetes mellitus without complications; I10 Essential (primary) hypertension; Z79.4 Long term (current) use of insulin; Z79.899 Other long term (current) drug therapy
CPT/HCPCS: 99283

== ENCOUNTER 2021-05-31 23:21 | Emergency (ER) | payer OTHER ==
[~2021-05-31] VITALS: Ht 167.6 cm; Wt 73.0 kg
[~2021-05-31 23:21] MED LIST changes: +CIPHCO EACH EAR; +POLY15DR31 EACHEYE
[2021-06-01] MEDS ORDERED: MORPHINE SULFATE 4 MG/ML CPJ (NOT FOR IM USE) IV STA (01:28)
[2021-06-01 02:14] LABS: CHLORIDE 107 mEq/L (98-107); HEMATOCRIT. 30.7 % (42.0-52.0); HEMOGLOBIN. 9.9 g/dL (14.0-18.0); MEAN CORPUSCULAR HEMOGLOBIN 28.7 pg (28.0-32.0); MEAN CORPUSCULAR VOLUME 88.8 fL (80.0-94.0); MEAN PLATELET VOLUME 10.6 fl (7.4-10.4); RED BLOOD CELL COUNT 3.46 mill/uL (4.7-6.1); RED CELL DISTRIBUTION WIDTH 21.6 % (11.6-14.6)
[2021-06-01] MEDS ORDERED: MORPHINE SULFATE 2 MG/ML CPJ (NOT FOR IM USE) IV SCH (02:15)
[2021-06-01 02:16] LABS: INR 1.2; PROTHROMBIN TIME 12.7 sec (9.6-11.0)
[2021-06-01 02:20] LABS: PLATELET 48 x1000/uL (130-400)
[2021-06-01] MEDS ORDERED: DIPHENHYDRAMINE 50MG/ML VIAL IV ONE (02:45)
[2021-06-01] MEDS ORDERED: ONDANSETRON HCL 4MG/2ML INJ IV ONE (02:45)
[2021-06-01 02:59] LABS: PLATELET ESTIMATE MARKEDLY DECREASED
[2021-06-01] MEDS ORDERED: MORPHINE SULFATE 2 MG/ML CPJ (NOT FOR IM USE) IV ONE (03:45)
[2021-06-01 04:12] VITALS: BP 153/93
== END 2021-06-01 04:49 | disposition short-term general hospital (02) ==
LOC: ER 23:21
DX: K70.31 Alcoholic cirrhosis of liver with ascites (principal); F10.20 Alcohol dependence, uncomplicated; Y90.9 Presence of alcohol in blood, level not specified; D69.6 Thrombocytopenia, unspecified; D53.9 Nutritional anemia, unspecified; R73.9 Hyperglycemia, unspecified; R00.0 Tachycardia, unspecified
CPT/HCPCS: 36415; 71045; 80053; 83690; 85025; 85610; 86850; 86900; 86901; 93005; 96374; 96375; 96376; 99285; J1200; J2270; J2405

== ENCOUNTER 2021-07-03 22:04 | Emergency (ER) | payer OTHER ==
[~2021-07-03] VITALS: Ht 165.1 cm; Wt 54.0 kg
[2021-07-03] MEDS ORDERED: MAGNESIUM/ALUMINUM HYDROXIDE/SIMETHICONE 30ML UDC PO STA (22:30)
[2021-07-03] MEDS ORDERED: ONDANSETRON HCL 4MG/2ML INJ IV STA (22:30)
[2021-07-03] MEDS ORDERED: MORPHINE SULFATE 4 MG/ML CPJ (NOT FOR IM USE) IV STA (22:30)
[2021-07-03] MEDS ORDERED: SODIUM CHLORIDE 0.9% 1,000 ML IV ONE (22:30)
[2021-07-03 23:06] LABS: BASOPHILS % 0.7 % (0.0-2.0); EOSINOPHILS % 0.7 % (0.0-5.0); HEMATOCRIT. 32.6 % (42.0-52.0); HEMOGLOBIN. 10.4 g/dL (14.0-18.0); LYMPHOCYTES % 24.9 % (20.0-50.0); MEAN CORPUSCULAR HEMOGLOBIN 26.4 pg (28.0-32.0); MEAN CORPUSCULAR VOLUME 83.1 fL (80.0-94.0); MEAN PLATELET VOLUME 9.9 fl (7.4-10.4); MONOCYTES % 10.8 % (2.0-8.0); NEUTROPHILS % 62.9 % (40.0-76.0); RED BLOOD CELL COUNT 3.92 mill/uL (4.7-6.1); RED CELL DISTRIBUTION WIDTH 17.3 % (11.6-14.6)
[2021-07-03 23:15] LABS: CHLORIDE 99 mEq/L (98-107)
[2021-07-03 23:17] LABS: PLATELET 23 x1000/uL (130-400)
[2021-07-03 23:22] LABS: PHOSPHORUS 4.1 mg/dL (2.5-4.9)
[2021-07-03 23:25] LABS: BETA HYDROXYBUTYRATE 0.2 mMol/L (0.0-0.3)
[2021-07-03 23:27] LABS: ETHANOL BLOOD 388 mg/dL
[2021-07-03 23:28] LABS: BG BASE EXCESS -0.9 mmol/L (-2.0-2.0); BG CARBOXYHEMOGLOBIN 0.2 % (0.5-1.5); BG DEOXYHEMOGLOBIN 1.2 % (0.0-5.0); BG HCO3 ACT 21.2 mmol/L (22.0-26.0); BG METHEMOGLOBIN 0.2 % (0.0-1.5); BG OXYGEN SATURATION 98.8 % (92.0-98.5); BG OXYHEMOGLOBIN 98.4 % (94.0-97.0); BG PCO2 27.3 mmHg (35.0-45.0); BG PH 7.508 (7.350-7.450)
[2021-07-04] MEDS ORDERED: DIAZEPAM 5 MG/ML 2ML CPJ IV ONE (01:15)
[2021-07-04] MEDS ORDERED: FOLIC ACID 1 MG, THIAMINE HCL 100 MG, MVI, ADULT NO.1 10 ML in DEXTROSE 5% WATER 1,000 ML IV ONE (01:15)
[2021-07-04] MEDS ORDERED: CHLORDIAZEPOXIDE 25MG CAPSULE PO ONE (03:45)
[2021-07-04] MEDS ORDERED: L25 MT (05:19)
[2021-07-04 05:30] VITALS: BP 137/85
== END 2021-07-04 05:53 | disposition home or self-care (01) ==
LOC: ER 22:04
DX: F10.239 Alcohol dependence with withdrawal, unspecified (principal); K70.30 Alcoholic cirrhosis of liver without ascites; E87.2 Acidosis; Y90.8 Blood alcohol level of 240 mg/100 ml or more; F17.210 Nicotine dependence, cigarettes, uncomplicated
CPT/HCPCS: 36415; 36600; 71045; 80053; 80076; 80320; 82010; 82375; 82805; 83605; 83690; 83735; 83930; 84100; 84484; 85025; 93005; 96361; 96365; 96375; 99285; J2270; J2405; J3360; J3411; J3490; J7030; J7070; G0480

== ENCOUNTER 2021-07-05 20:51 | Emergency (ER) | payer OTHER ==
[~2021-07-05] VITALS: Ht 165.1 cm; Wt 73.0 kg
[~2021-07-05 20:51] MED LIST changes: +L25 MT
[2021-07-05 21:23] VITALS: BP 176/102
== END 2021-07-05 22:15 | disposition left against medical advice (07) ==
LOC: ER 20:51
DX: Z53.21 Procedure and treatment not carried out due to patient leaving prior to being seen by health care provider (principal)

== ENCOUNTER 2021-07-15 06:08 | Emergency (ER) | payer OTHER ==
[~2021-07-15] VITALS: Ht 167.6 cm; Wt 73.0 kg
[2021-07-15 08:40] LABS: CHLORIDE 103 mEq/L (98-107)
[2021-07-15 08:56] LABS: ETHANOL BLOOD 318 mg/dL
[2021-07-15 08:59] LABS: HEMATOCRIT. 31.2 % (42.0-52.0); MEAN CORPUSCULAR HEMOGLOBIN 26.8 pg (28.0-32.0); MEAN CORPUSCULAR VOLUME 83.4 fL (80.0-94.0); RED BLOOD CELL COUNT 3.74 mill/uL (4.7-6.1); RED CELL DISTRIBUTION WIDTH 19.3 % (11.6-14.6)
[2021-07-15 09:51] LABS: PLATELET ESTIMATE MARKEDLY DECREASED
[2021-07-15 09:53] LABS: MEAN PLATELET VOLUME 9.3 fl (7.4-10.4); PLATELET 19 x1000/uL (130-400)
[2021-07-15 09:58] LABS: *AMPHETAMINES SCREEN URINE NEGATIVE (NEGATIVE)
[2021-07-15 09:59] LABS: *BARBITURATES SCREEN URINE NEGATIVE (NEGATIVE); *BENZODIAZEPINES SCREEN URINE NEGATIVE (NEGATIVE); *COCAINE SCREEN URINE NEGATIVE (NEGATIVE); METHADONE URINE SCREEN NEGATIVE (NEGATIVE); OPIATES URINE SCREEN NEGATIVE (NEGATIVE)
[2021-07-15 10:00] LABS: CANNABINOID URINE SCREEN NEGATIVE (NEGATIVE); PHENCYCLIDINE URINE SCREEN NEGATIVE (NEGATIVE)
[2021-07-15] MEDS ORDERED: MAGNESIUM/ALUMINUM HYDROXIDE/SIMETHICONE 30ML UDC PO ONE (10:00)
[2021-07-15] MEDS ORDERED: CHLORDIAZEPOXIDE 25MG CAPSULE PO ONE (10:00)
[2021-07-15 13:27] VITALS: BP 134/79
== END 2021-07-15 13:28 | disposition home or self-care (01) ==
LOC: ER 06:08
DX: T51.0X1A Toxic effect of ethanol, accidental (unintentional), initial encounter (principal); R07.89 Other chest pain; R10.13 Epigastric pain; I10 Essential (primary) hypertension; D61.818 Other pancytopenia; F10.129 Alcohol abuse with intoxication, unspecified; Y90.8 Blood alcohol level of 240 mg/100 ml or more; K74.60 Unspecified cirrhosis of liver; E11.9 Type 2 diabetes mellitus without complications; Y92.89 Other specified places as the place of occurrence of the external cause
CPT/HCPCS: 36415; 71045; 80053; 80305; 80320; 84484; 85025; 93005; 99285; G0480

== ENCOUNTER 2021-07-18 05:00 | Emergency (ER) | payer OTHER ==
[~2021-07-18] VITALS: Ht 30.5 cm; Wt 0.5 kg
[2021-07-18 08:00] LABS: CHLORIDE 102 mEq/L (98-107); RED BLOOD CELL COUNT 4.89 mill/uL (4.7-6.1)
[2021-07-18 08:01] LABS: HEMATOCRIT. 40.7 % (42.0-52.0); HEMOGLOBIN. 13.1 g/dL (14.0-18.0); MEAN CORPUSCULAR HEMOGLOBIN 26.9 pg (28.0-32.0); MEAN CORPUSCULAR VOLUME 83.3 fL (80.0-94.0); MEAN PLATELET VOLUME 10.6 fl (7.4-10.4); RED CELL DISTRIBUTION WIDTH 20.1 % (11.6-14.6)
[2021-07-18 08:04] LABS: PLATELET 16 x1000/uL (130-400)
[2021-07-18 08:09] LABS: CLARITY URINE CLEAR (CLEAR); COLOR URINE DK YELLOW (YELLOW); KETONES URINE NEGATIVE (NEGATIVE); LEUKOCYTE ESTERASE URINE NEGATIVE (NEGATIVE); NITRITE URINE NEGATIVE (NEGATIVE); OCCULT BLOOD URINE 1+ (NEGATIVE); PROTEIN URINE NEGATIVE (NEGATIVE)
[2021-07-18 08:11] LABS: INR 1.3
[2021-07-18] MEDS ORDERED: MORPHINE SULFATE 4 MG/ML CPJ (NOT FOR IM USE) IV SCH (08:30)
[2021-07-18 08:56] LABS: PLATELET ESTIMATE MARKEDLY DECREASED
[2021-07-18] MEDS ORDERED: OCTREOTIDE 1,000 MCG in SODIUM CHLORIDE 0.9% 100 ML IV ONE (09:30)
[2021-07-18] MEDS ORDERED: PANTOPRAZOLE SODIUM 40 MG/VIAL IV ONE (09:30)
[2021-07-18] MEDS ORDERED: LORAZEPAM 2MG/ML CPJ IV ONE (09:30)
[2021-07-18] MEDS ORDERED: CEFTRIAXONE 1 G PREMIX 50 ML IV ONE (09:30)
[2021-07-18] MEDS ORDERED: IOHEXOL-300 100 ML BOTTLE ONE (09:52)
[2021-07-18] MEDS ORDERED: OCTREOTIDE 1,000 MCG in SODIUM CHLORIDE 0.9% 98 ML IV SCH (10:00)
[2021-07-18] MEDS ORDERED: OCTREOTIDE 1,000 MCG in SODIUM CHLORIDE 0.9% 100 ML IV SCH (10:00)
[2021-07-18 11:57] VITALS: BP 101/71
== END 2021-07-18 12:42 | disposition short-term general hospital (02) ==
LOC: ER 05:00 → CANBEDREQ 12:13 → ER 12:42
DX: K92.2 Gastrointestinal hemorrhage, unspecified (principal); F10.239 Alcohol dependence with withdrawal, unspecified; F10.229 Alcohol dependence with intoxication, unspecified; K70.31 Alcoholic cirrhosis of liver with ascites; Y90.9 Presence of alcohol in blood, level not specified; I10 Essential (primary) hypertension; E11.9 Type 2 diabetes mellitus without complications; Z20.822 Contact with and (suspected) exposure to COVID-19
CPT/HCPCS: 36415; 74177; 80053; 81003; 83690; 85025; 85610; 87426; 93005; 96365; 96368; 96375; 99285; C9113; J0696; J2060; J2270; J2354; J7050; Q9967

== ENCOUNTER 2021-07-28 19:23 | Emergency (ER) | payer OTHER ==
[~2021-07-28] VITALS: Ht 162.6 cm; Wt 79.0 kg
[2021-07-28 19:27] VITALS: BP 153/93
== END 2021-07-28 20:29 | disposition home or self-care (01) ==
LOC: ER 19:23
DX: R51.9 Headache, unspecified (principal); G47.00 Insomnia, unspecified; D64.9 Anemia, unspecified; E11.9 Type 2 diabetes mellitus without complications; I10 Essential (primary) hypertension; Z79.899 Other long term (current) drug therapy
CPT/HCPCS: 99283

== ENCOUNTER 2021-08-10 00:56 | Emergency (ER) | payer OTHER ==
[~2021-08-10] VITALS: Ht 167.6 cm; Wt 73.0 kg
[2021-08-10 01:01] VITALS: BP 130/90
[2021-08-10] MEDS ORDERED: ONDANSETRON 4MG ODT PO STA (02:53)
== END 2021-08-10 02:56 | disposition left against medical advice (07) ==
LOC: ER 00:56
DX: F10.10 Alcohol abuse, uncomplicated (principal); E11.9 Type 2 diabetes mellitus without complications; I10 Essential (primary) hypertension; Y90.9 Presence of alcohol in blood, level not specified
CPT/HCPCS: 99283

== ENCOUNTER 2021-08-20 23:57 | Emergency (ER) | payer OTHER ==
[~2021-08-20] VITALS: Ht 167.6 cm; Wt 75.0 kg
[2021-08-21 01:12] LABS: HEMATOCRIT. 32.3 % (42.0-52.0); HEMOGLOBIN. 10.3 g/dL (14.0-18.0); MEAN CORPUSCULAR HEMOGLOBIN 26.4 pg (28.0-32.0); MEAN CORPUSCULAR VOLUME 82.6 fL (80.0-94.0); MEAN PLATELET VOLUME 9.6 fl (7.4-10.4); RED BLOOD CELL COUNT 3.91 mill/uL (4.7-6.1); RED CELL DISTRIBUTION WIDTH 19.4 % (11.6-14.6)
[2021-08-21 01:18] LABS: PLATELET 22 x1000/uL (130-400)
[2021-08-21 01:22] LABS: CHLORIDE 105 mEq/L (98-107)
[2021-08-21 01:24] LABS: INR 1.4; PROTHROMBIN TIME 14.2 sec (9.6-11.0)
[2021-08-21 01:58] LABS: ETHANOL BLOOD 365 mg/dL
[2021-08-21] MEDS ORDERED: MAGNESIUM/ALUMINUM HYDROXIDE/SIMETHICONE 30ML UDC PO ONE (04:15)
[2021-08-21] MEDS ORDERED: ONDA4TAB5 MT (04:17)
[2021-08-21] MEDS ORDERED: CHLORDIAZEPOXIDE 25MG CAPSULE PO ONE (04:30)
[2021-08-21] MEDS ORDERED: SODIUM CHLORIDE 0.9% 1,000 ML IV ONE (04:45)
[2021-08-21] MEDS ORDERED: PANTOPRAZOLE SODIUM 40 MG/VIAL IV ONE (04:45)
[2021-08-21 07:28] LABS: PLATELET ESTIMATE MARKEDLY DECREASED
[2021-08-21 08:50] VITALS: BP 142/86
== END 2021-08-21 08:51 | disposition short-term general hospital (02) ==
LOC: ER 23:57 → CANBEDREQ 08-21 08:53
DX: K92.2 Gastrointestinal hemorrhage, unspecified (principal); E11.9 Type 2 diabetes mellitus without complications; I10 Essential (primary) hypertension; Z20.822 Contact with and (suspected) exposure to COVID-19
CPT/HCPCS: 36415; 80053; 80320; 83690; 85025; 85610; 87426; 96372; 99285; C9113; J7030; G0480

== ENCOUNTER 2021-08-30 14:59 | Emergency (ER) | payer OTHER ==
[~2021-08-30] VITALS: Ht 167.6 cm; Wt 70.0 kg
[~2021-08-30 14:59] MED LIST changes: +ONDA4TAB5 MT
[2021-08-30] MEDS ORDERED: IBUPROFEN 600MG TABLET PO STA (16:51)
[2021-08-30] MEDS ORDERED: SODIUM CHLORIDE 0.9% 1,000 ML IV ONE (17:00)
[2021-08-30 17:28] VITALS: BP 110/65
[2021-08-30 17:40] LABS: CHLORIDE 106 mEq/L (98-107)
[2021-08-30 17:55] LABS: HEMATOCRIT. 32.9 % (42.0-52.0); HEMOGLOBIN. 10.4 g/dL (14.0-18.0); MEAN PLATELET VOLUME 10.5 fl (7.4-10.4); RED BLOOD CELL COUNT 4.01 mill/uL (4.7-6.1); RED CELL DISTRIBUTION WIDTH 19.5 % (11.6-14.6)
[2021-08-30 17:59] LABS: PLATELET 38 x1000/uL (130-400)
[2021-08-30 19:05] LABS: PLATELET ESTIMATE MARKEDLY DECREASED
== END 2021-08-30 19:25 | disposition left against medical advice (07) ==
LOC: ER 14:59
DX: F10.129 Alcohol abuse with intoxication, unspecified (principal); I10 Essential (primary) hypertension; E11.9 Type 2 diabetes mellitus without complications; D53.9 Nutritional anemia, unspecified; D72.819 Decreased white blood cell count, unspecified; Z79.899 Other long term (current) drug therapy; Y90.9 Presence of alcohol in blood, level not specified
CPT/HCPCS: 36415; 73630; 80053; 83690; 83735; 85025; 96360; 99284; J7030

== ENCOUNTER 2021-09-01 15:31 | Emergency (ER) | payer OTHER ==
[~2021-09-01] VITALS: Ht 162.6 cm; Wt 73.0 kg
[2021-09-01 15:38] VITALS: BP 141/84
[2021-09-01 21:28] LABS: BASOPHILS % 1.8 % (0.0-2.0); EOSINOPHILS % 0.5 % (0.0-5.0); HEMATOCRIT. 29.9 % (42.0-52.0); HEMOGLOBIN. 9.4 g/dL (14.0-18.0); LYMPHOCYTES % 26.1 % (20.0-50.0); MEAN CORPUSCULAR HEMOGLOBIN 25.9 pg (28.0-32.0); MEAN CORPUSCULAR VOLUME 82.2 fL (80.0-94.0); MEAN PLATELET VOLUME 10.1 fl (7.4-10.4); MONOCYTES % 9.9 % (2.0-8.0); NEUTROPHILS % 61.7 % (40.0-76.0); RED BLOOD CELL COUNT 3.64 mill/uL (4.7-6.1); RED CELL DISTRIBUTION WIDTH 18.9 % (11.6-14.6)
[2021-09-01 21:31] LABS: CHLORIDE 107 mEq/L (98-107)
[2021-09-01 21:36] LABS: PLATELET 37 x1000/uL (130-400)
== END 2021-09-01 22:17 | disposition home or self-care (01) ==
LOC: ER 15:31
DX: M25.552 Pain in left hip (principal); G89.29 Other chronic pain; R04.0 Epistaxis; F10.20 Alcohol dependence, uncomplicated; D64.9 Anemia, unspecified; E11.9 Type 2 diabetes mellitus without complications; I10 Essential (primary) hypertension; Z79.899 Other long term (current) drug therapy
CPT/HCPCS: 36415; 73630; 80053; 85025; 99284

== ENCOUNTER 2021-09-02 12:29 | Emergency (ER) | payer OTHER ==
[~2021-09-02] VITALS: Ht 165.1 cm; Wt 75.0 kg
[2021-09-02 12:51] VITALS: BP 139/80
== END 2021-09-02 15:45 | disposition left against medical advice (07) ==
LOC: ER 12:29
DX: L81.9 Disorder of pigmentation, unspecified (principal); R04.0 Epistaxis; E11.9 Type 2 diabetes mellitus without complications; F10.20 Alcohol dependence, uncomplicated; Y90.9 Presence of alcohol in blood, level not specified
CPT/HCPCS: 99281

== ENCOUNTER 2021-09-10 04:34 | Emergency (ER) | payer OTHER ==
[~2021-09-10] VITALS: Ht 165.1 cm; Wt 73.0 kg
[2021-09-10] MEDS ORDERED: PANTOPRAZOLE SODIUM 40 MG/VIAL IV STA (05:02)
[2021-09-10] MEDS ORDERED: SODIUM CHLORIDE 0.9% 1,000 ML IV ONE (05:15)
[2021-09-10] MEDS ORDERED: PANTOPRAZOLE 80 MG in SODIUM CHLORIDE 0.9% 80 ML IV ONE (05:15)
[2021-09-10] MEDS ORDERED: CEFTRIAXONE 1 G PREMIX 50 ML IV ONE (05:15)
[2021-09-10] MEDS ORDERED: OCTREOTIDE ACETATE 50 MCG/ML 1ML IV ONE (05:15)
[2021-09-10 05:37] LABS: HEMATOCRIT. 27.1 % (42.0-52.0); HEMOGLOBIN. 8.6 g/dL (14.0-18.0); MEAN CORPUSCULAR HEMOGLOBIN 26.5 pg (28.0-32.0); MEAN CORPUSCULAR VOLUME 83.1 fL (80.0-94.0); RED BLOOD CELL COUNT 3.26 mill/uL (4.7-6.1)
[2021-09-10 05:42] LABS: CHLORIDE 104 mEq/L (98-107)
[2021-09-10 05:47] LABS: INR 1.3
[2021-09-10 05:56] LABS: PLATELET 21 x1000/uL (130-400)
[2021-09-10] MEDS ORDERED: PANTOPRAZOLE 80 MG in SODIUM CHLORIDE 0.9% 80 ML IV SCH (06:00)
[2021-09-10] MEDS ORDERED: CEFTRIAXONE 1,000 MG in DEXTROSE 5% WATER 50 ML IV SCH (06:00)
[2021-09-10 06:12] LABS: CLARITY URINE CLEAR (CLEAR); COLOR URINE DARK YELLOW (YELLOW); KETONES URINE TRACE (NEGATIVE); LEUKOCYTE ESTERASE URINE NEGATIVE (NEGATIVE); NITRITE URINE NEGATIVE (NEGATIVE); OCCULT BLOOD URINE NEGATIVE (NEGATIVE); PH URINE 6.5 (4.5-8.0); PROTEIN URINE 1+ (NEGATIVE); SPECIFIC GRAVITY URINE 1.037 (1.005-1.030)
[2021-09-10] MEDS ORDERED: ONDANSETRON HCL 4MG/2ML INJ IV ONE (06:45)
[2021-09-10 10:41] LABS: PLATELET ESTIMATE MARKEDLY DECREASED
[2021-09-10 13:50] VITALS: BP 142/81
[2021-09-10] MEDS ORDERED: OCTREOTIDE 1,000 MCG in SODIUM CHLORIDE 0.9% 100 ML IV SCH ×4 (14:00)
[2021-09-10 14:29] LABS: FOLIC ACID (FOLATE) SERUM 18.2 ng/mL (>5.38)
[2021-09-10] MEDS ORDERED: PANTOPRAZOLE SODIUM 40 MG/VIAL IV SCH ×2 (17:00→21:00)
== END 2021-09-10 14:21 | disposition short-term general hospital (02) ==
LOC: ER 04:34 → EDBEDREQTM 11:24 → EDBEDREQ 11:24 → ER 14:21 → CANBEDREQ 19:57
DX: K92.2 Gastrointestinal hemorrhage, unspecified (principal); E11.9 Type 2 diabetes mellitus without complications; I10 Essential (primary) hypertension; Z79.4 Long term (current) use of insulin
CPT/HCPCS: 36415; 74176; 80053; 80076; 81003; 82607; 82728; 82746; 82962; 83540; 83690; 85025; 85044; 85610; 86850; 86900; 86901; 93005; 96361; 96365; 96375; 99291; C9113; J0696; J2354; J2405; J7030; J7050; J7060; P9034

== ENCOUNTER 2021-10-26 10:29 | Emergency (ER) | payer OTHER ==
[~2021-10-26] VITALS: Ht 165.1 cm; Wt 68.0 kg
[2021-10-26] MEDS ORDERED: SODIUM CHLORIDE 0.9% 1,000 ML IV ONE (11:00)
[2021-10-26 11:42] LABS: BASOPHILS % 1.3 % (0.0-2.0); HEMATOCRIT. 30.2 % (42.0-52.0); HEMOGLOBIN. 9.7 g/dL (14.0-18.0); LYMPHOCYTES % 20.7 % (20.0-50.0); MEAN CORPUSCULAR HEMOGLOBIN 25.7 pg (28.0-32.0); MEAN CORPUSCULAR VOLUME 79.7 fL (80.0-94.0); MEAN PLATELET VOLUME 10.2 fl (7.4-10.4); MONOCYTES % 11.8 % (2.0-8.0); NEUTROPHILS % 65.2 % (40.0-76.0); RED BLOOD CELL COUNT 3.79 mill/uL (4.7-6.1); RED CELL DISTRIBUTION WIDTH 19.2 % (11.6-14.6)
[2021-10-26 11:44] LABS: CLARITY URINE CLEAR (CLEAR); COLOR URINE YELLOW (YELLOW); KETONES URINE NEGATIVE (NEGATIVE); LEUKOCYTE ESTERASE URINE NEGATIVE (NEGATIVE); NITRITE URINE NEGATIVE (NEGATIVE); OCCULT BLOOD URINE 3+ (NEGATIVE); PROTEIN URINE TRACE (NEGATIVE); SPECIFIC GRAVITY URINE 1.031 (1.005-1.030)
[2021-10-26 11:46] LABS: CHLORIDE 101 mEq/L (98-107)
[2021-10-26 11:53] LABS: *AMPHETAMINES SCREEN URINE NEGATIVE (NEGATIVE); *BARBITURATES SCREEN URINE NEGATIVE (NEGATIVE); *BENZODIAZEPINES SCREEN URINE NEGATIVE (NEGATIVE); *COCAINE SCREEN URINE NEGATIVE (NEGATIVE); METHADONE URINE SCREEN NEGATIVE (NEGATIVE); OPIATES URINE SCREEN NEGATIVE (NEGATIVE); PLATELET 28 x1000/uL (130-400)
[2021-10-26 11:54] LABS: CANNABINOID URINE SCREEN NEGATIVE (NEGATIVE); PHENCYCLIDINE URINE SCREEN NEGATIVE (NEGATIVE)
[2021-10-26 12:06] LABS: ETHANOL BLOOD 305 mg/dL
[2021-10-26 12:19] LABS: PLATELET ESTIMATE MARKEDLY DECREASED
[2021-10-26 12:40] VITALS: BP 166/88
[2021-10-26] MEDS ORDERED: NITROGLYCERIN 0.4MG TABLET SL SL ONE (13:00)
[2021-10-26] MEDS ORDERED: ONDANSETRON HCL 4MG/2ML INJ IV ONE (14:45)
== END 2021-10-26 14:44 | disposition short-term general hospital (02) ==
LOC: ER 13:56 → CANBEDREQ 14:39 → ER 14:44
DX: T51.0X1A Toxic effect of ethanol, accidental (unintentional), initial encounter (principal); F10.229 Alcohol dependence with intoxication, unspecified; R07.89 Other chest pain; R00.0 Tachycardia, unspecified; Z71.41 Alcohol abuse counseling and surveillance of alcoholic; Y90.9 Presence of alcohol in blood, level not specified; D69.6 Thrombocytopenia, unspecified; Y92.89 Other specified places as the place of occurrence of the external cause
CPT/HCPCS: 36415; 71045; 80053; 80305; 80320; 81003; 82962; 83690; 83735; 83880; 84484; 85025; 93005; 99291; J2405; J7030; G0480

== ENCOUNTER 2021-11-23 08:41 | Emergency (ER) | payer OTHER ==
[~2021-11-23] VITALS: Ht 157.5 cm; Wt 68.0 kg
[~2021-11-23 08:41] MED LIST changes: +HYDR-4001 PO
[2021-11-23 09:42] LABS: BASOPHILS % 1.1 % (0.0-2.0); EOSINOPHILS % 1.6 % (0.0-5.0); HEMATOCRIT. 29.9 % (42.0-52.0); HEMOGLOBIN. 9.3 g/dL (14.0-18.0); LYMPHOCYTES % 23.5 % (20.0-50.0); MEAN CORPUSCULAR HEMOGLOBIN 24.5 pg (28.0-32.0); MEAN CORPUSCULAR VOLUME 78.5 fL (80.0-94.0); MONOCYTES % 16.9 % (2.0-8.0); NEUTROPHILS % 56.9 % (40.0-76.0); RED BLOOD CELL COUNT 3.81 mill/uL (4.7-6.1); RED CELL DISTRIBUTION WIDTH 19.7 % (11.6-14.6)
[2021-11-23 09:52] LABS: INR 1.4; PROTHROMBIN TIME 14.2 sec (9.6-11.0)
[2021-11-23 09:53] LABS: CHLORIDE 104 mEq/L (98-107)
[2021-11-23 09:57] LABS: ETHANOL BLOOD 285 mg/dL
[2021-11-23] MEDS ORDERED: CHLORDIAZEPOXIDE 25MG CAPSULE PO ONE (10:30)
[2021-11-23 11:43] LABS: *AMPHETAMINES SCREEN URINE NEGATIVE (NEGATIVE); *BARBITURATES SCREEN URINE NEGATIVE (NEGATIVE); *BENZODIAZEPINES SCREEN URINE NEGATIVE (NEGATIVE); *COCAINE SCREEN URINE NEGATIVE (NEGATIVE); METHADONE URINE SCREEN NEGATIVE (NEGATIVE); OPIATES URINE SCREEN NEGATIVE (NEGATIVE); PHENCYCLIDINE URINE SCREEN NEGATIVE (NEGATIVE)
[2021-11-23 11:44] LABS: CANNABINOID URINE SCREEN NEGATIVE (NEGATIVE)
[2021-11-23 13:40] VITALS: BP 145/90
[2021-11-25 09:39] LABS: PLATELET 20 x1000/uL (130-400)
== END 2021-11-23 13:58 | disposition home or self-care (01) ==
LOC: ER 08:46
DX: T51.0X1A Toxic effect of ethanol, accidental (unintentional), initial encounter (principal); F10.229 Alcohol dependence with intoxication, unspecified; R07.89 Other chest pain; R00.0 Tachycardia, unspecified; I10 Essential (primary) hypertension; D69.6 Thrombocytopenia, unspecified; K70.9 Alcoholic liver disease, unspecified; E11.9 Type 2 diabetes mellitus without complications; Y90.8 Blood alcohol level of 240 mg/100 ml or more; Y92.89 Other specified places as the place of occurrence of the external cause
CPT/HCPCS: 36415; 71045; 80053; 80305; 80320; 84484; 85025; 93005; 99291; G0480

== ENCOUNTER 2021-12-09 09:12 | Inpatient (IN) | payer MEDICAID, OTHER ==
[~2021-12-09] VITALS: Ht 167.6 cm; Wt 70.8 kg
[2021-12-09 10:18] LABS: CLARITY URINE CLEAR (CLEAR); COLOR URINE YELLOW (YELLOW); KETONES URINE NEGATIVE (NEGATIVE); LEUKOCYTE ESTERASE URINE NEGATIVE (NEGATIVE); NITRITE URINE NEGATIVE (NEGATIVE); OCCULT BLOOD URINE TRACE (NEGATIVE); PH URINE 6.5 (4.5-8.0); PROTEIN URINE NEGATIVE (NEGATIVE); SPECIFIC GRAVITY URINE 1.023 (1.005-1.030); UROBILINOGEN URINE 0.2 E.U./dL (0.2-1.0)
[2021-12-09 10:36] LABS: CHLORIDE 101 mEq/L (98-107)
[2021-12-09 10:37] LABS: BASOPHILS % 2.2 % (0.0-2.0); EOSINOPHILS % 0.8 % (0.0-5.0); HEMOGLOBIN. 8.5 g/dL (14.0-18.0); LYMPHOCYTES % 19.4 % (20.0-50.0); MEAN CORPUSCULAR HEMOGLOBIN 23.8 pg (28.0-32.0); MEAN CORPUSCULAR VOLUME 78.7 fL (80.0-94.0); MEAN PLATELET VOLUME 9.7 fl (7.4-10.4); NEUTROPHILS % 63.6 % (40.0-76.0); RED BLOOD CELL COUNT 3.56 mill/uL (4.7-6.1)
[2021-12-09 10:41] LABS: PLATELET 20 x1000/uL (130-400)
[2021-12-09 10:43] LABS: INR 1.3; PROTHROMBIN TIME 13.7 sec (9.6-11.0)
[2021-12-09 11:01] LABS: ETHANOL BLOOD 324 mg/dL
[2021-12-09 11:07] LABS: PLATELET ESTIMATE MARKEDLY DECREASED
[2021-12-09] MEDS ORDERED: SODIUM CHLORIDE 0.9% 1,000 ML IV ONE (11:45)
[2021-12-09] MEDS ORDERED: CEFTRIAXONE 1 G PREMIX 50 ML IV ONE (12:00)
[2021-12-09] MEDS ORDERED: PANTOPRAZOLE 80 MG in SODIUM CHLORIDE 0.9% 100 ML IV SCH (12:00)
[2021-12-09] MEDS ORDERED: ACETAMINOPHEN 325MG TABLET PO PRN (13:45)
[2021-12-09] MEDS ORDERED: DEXTROSE 50% WATER 50ML SYRINGE IV PRN (13:45)
[2021-12-09] MEDS: FOLIC ACID 1MG TABLET PO SCH (13:45)
[2021-12-09 16:18] LABS: TOTAL IRON BINDING CAPACITY 391 ug/dL (250-450)
[2021-12-09 16:43] LABS: VITAMIN B12 SERUM > 2000.0 pg/mL (211-911)
[2021-12-09 17:17] LABS: FERRITIN 33 ng/mL (22-322)
[2021-12-09] MEDS: PANTOPRAZOLE SODIUM 40 MG/VIAL IV SCH (17:27)
[2021-12-09] MEDS: BLOOD SUGAR DIAGNOSTIC STRIP TEST SCH ×2 (17:52→21:00)
[2021-12-09] MEDS: INSULIN LISPRO 100 UNITS/ML SUBCUT SCH ×2 (17:57→23:01)
[2021-12-09 18:12] LABS: HEMATOCRIT 28.9 % (42.0-52.0); HEMOGLOBIN 8.8 g/dL (14.0-18.0)
[2021-12-09 21:55] VITALS: BP 147/93
[2021-12-09] MEDS: LORAZEPAM 2MG/ML CPJ IV PRN (22:59)
[2021-12-09] MEDS: ONDANSETRON HCL 4MG/2ML INJ IV PRN (23:00)
[2021-12-09] MEDS ORDERED: FOLI20CA MT (23:46)
[2021-12-10] VITALS (11 sets, daily range): BP systolic 145–164; BP diastolic 80–96
[2021-12-10 01:09] LABS: HEMATOCRIT 25.1 % (42.0-52.0); HEMOGLOBIN 7.7 g/dL (14.0-18.0)
[2021-12-10] MEDS: INSULIN LISPRO 100 UNITS/ML SUBCUT SCH ×4 (06:31→21:28)
[2021-12-10 07:00] LABS: HEMATOCRIT. 25.3 % (42.0-52.0); HEMOGLOBIN. 7.8 g/dL (14.0-18.0); MEAN CORPUSCULAR HEMOGLOBIN 23.8 pg (28.0-32.0); MEAN CORPUSCULAR VOLUME 77.1 fL (80.0-94.0); MEAN PLATELET VOLUME 10.1 fl (7.4-10.4); RED BLOOD CELL COUNT 3.27 mill/uL (4.7-6.1); RED CELL DISTRIBUTION WIDTH 18.8 % (11.6-14.6)
[2021-12-10] MEDS: BLOOD SUGAR DIAGNOSTIC STRIP TEST SCH ×4 (07:10→21:18)
[2021-12-10 07:14] LABS: CHLORIDE 103 mEq/L (98-107)
[2021-12-10 08:06] LABS: PLATELET 16 x1000/uL (130-400)
[2021-12-10] MEDS: FOLIC ACID 1MG TABLET PO SCH (08:50)
[2021-12-10] MEDS: THIAMINE HCL 100MG TABLET PO SCH (08:50)
[2021-12-10] MEDS: LORAZEPAM 2MG/ML CPJ IV PRN (08:50)
[2021-12-10] MEDS: PANTOPRAZOLE SODIUM 40 MG/VIAL IV SCH ×2 (08:50→17:36)
[2021-12-10] MEDS: ONDANSETRON HCL 4MG/2ML INJ IV PRN (09:00)
[2021-12-10 10:32] LABS: HEMATOCRIT 26.1 % (42.0-52.0); HEMOGLOBIN 7.9 g/dL (14.0-18.0)
[2021-12-10] MEDS ORDERED: DIPHENHYDRAMINE 25MG CAPSULE PO PRN (10:45)
[2021-12-10] MEDS ORDERED: ACETAMINOPHEN 325MG TABLET PO PRN (10:45)
[2021-12-10 11:18] LABS: PLATELET ESTIMATE MARKEDLY DECREASED
[2021-12-10] MEDS ORDERED: INSULIN GLARGINE 100 UNITS/ML SUBCUT NR (12:30)
[2021-12-10] MEDS: CHLORDIAZEPOXIDE 25MG CAPSULE PO SCH ×2 (13:47→21:25)
[2021-12-10] MEDS: LACTULOSE 20G/30ML UDC PO SCH ×2 (17:36→21:25)
[2021-12-10] MEDS: FERROUS SULFATE 325MG TABLET PO SCH (18:08)
[2021-12-10] MEDS: ASCORBIC ACID 500 MG TABLET PO SCH ×2 (18:08→21:25)
[2021-12-10 20:25] LABS: HEMATOCRIT 25.2 % (42.0-52.0); HEMOGLOBIN 7.8 g/dL (14.0-18.0)
[2021-12-10] MEDS ORDERED: INSULIN GLARGINE 100 UNITS/ML SUBCUT SCH (22:00)
[2021-12-11] VITALS: BP 142/80
[2021-12-11] MEDS: LORAZEPAM 2MG/ML CPJ IV PRN (00:56)
[2021-12-11 01:58] LABS: HEMATOCRIT 25.6 % (42.0-52.0)
[2021-12-11 04:00] VITALS: BP 142/91
[2021-12-11] MEDS: LACTULOSE 20G/30ML UDC PO SCH (06:27)
[2021-12-11] MEDS: CHLORDIAZEPOXIDE 25MG CAPSULE PO SCH (06:27)
[2021-12-11] MEDS: BLOOD SUGAR DIAGNOSTIC STRIP TEST SCH ×2 (07:04→12:25)
[2021-12-11] MEDS: INSULIN LISPRO 100 UNITS/ML SUBCUT SCH ×2 (07:40→12:26)
[2021-12-11 08:00] VITALS: BP 145/90
[2021-12-11 08:19] LABS: HEMOGLOBIN 8.1 g/dL (14.0-18.0)
[2021-12-11] MEDS ORDERED: LACT10SO7 MT (10:49)
[2021-12-11] MEDS ORDERED: L25 MT (10:49)
[2021-12-11] MEDS ORDERED: THIA100T88 MT (10:50)
[2021-12-11] MEDS: FOLIC ACID 1MG TABLET PO SCH (10:54)
[2021-12-11] MEDS: PANTOPRAZOLE SODIUM 40 MG/VIAL IV SCH (10:54)
[2021-12-11] MEDS: FERROUS SULFATE 325MG TABLET PO SCH ×2 (10:54→12:25)
[2021-12-11] MEDS: THIAMINE HCL 100MG TABLET PO SCH (10:55)
[2021-12-11] MEDS: ASCORBIC ACID 500 MG TABLET PO SCH (10:55)
[2021-12-11 12:00] VITALS: BP 144/88
[2021-12-11 12:30] VITALS: BP 148/92
[2021-12-11 13:31] LABS: HEMATOCRIT 29.5 % (42.0-52.0)
== END 2021-12-11 13:35 | disposition home or self-care (01) | DRG 241 ==
LOC: ER 09:54 → 8WST 12:13 → EDBEDREQ 12:15 → EDBEDREQTM 12:15 → ENRESERV 19:54
PROVIDERS: ADMIT Internal Medicine; ATTEND Internal Medicine
DX: K29.21 Alcoholic gastritis with bleeding (principal); D61.818 Other pancytopenia; E43 Unspecified severe protein-calorie malnutrition; K76.6 Portal hypertension; R18.8 Other ascites; E87.1 Hypo-osmolality and hyponatremia; K74.60 Unspecified cirrhosis of liver; K52.9 Noninfective gastroenteritis and colitis, unspecified; D50.9 Iron deficiency anemia, unspecified; E11.65 Type 2 diabetes mellitus with hyperglycemia; F10.10 Alcohol abuse, uncomplicated; N20.0 Calculus of kidney; Y90.9 Presence of alcohol in blood, level not specified; R74.01 Elevation of levels of liver transaminase levels; N32.89 Other specified disorders of bladder; I10 Essential (primary) hypertension; Z79.891 Long term (current) use of opiate analgesic; Z79.899 Other long term (current) drug therapy; Z71.41 Alcohol abuse counseling and surveillance of alcoholic; Z68.25 Body mass index [BMI] 25.0-25.9, adult; R16.1 Splenomegaly, not elsewhere classified
CPT/HCPCS: 36415; 71045; 74176; 76700; 80048; 80053; 80076; 80320; 81003; 82140; 82248; 82607; 82728; 82746; 82962; 83540; 83550; 85014; 85018; 85025; 85044; 85049; 86850; 86900; 93005; 99291; C9113; J0696; J1815; J2060; J2405; J7030; J7050; P9034; Q0163; G0480

== ENCOUNTER 2021-12-14 23:24 | Emergency (ER) | payer OTHER ==
[~2021-12-14] VITALS: Ht 167.6 cm; Wt 73.2 kg
[~2021-12-14 23:24] MED LIST changes: +FOLI20CA MT; +LACT10SO7 MT; +THIA100T88 MT
[2021-12-15] VITALS: BP 149/95
[2021-12-15 00:39] LABS: HEMOGLOBIN. 8.8 g/dL (14.0-18.0); MEAN CORPUSCULAR HEMOGLOBIN 24.6 pg (28.0-32.0); RED BLOOD CELL COUNT 3.56 mill/uL (4.7-6.1)
[2021-12-15 00:46] LABS: CHLORIDE 109 mEq/L (98-107)
[2021-12-15 00:48] LABS: HEMATOCRIT. 28.4 % (42.0-52.0); MEAN CORPUSCULAR VOLUME 79.9 fL (80.0-94.0); MEAN PLATELET VOLUME 10.6 fl (7.4-10.4); RED CELL DISTRIBUTION WIDTH 20.3 % (11.6-14.6)
[2021-12-15 00:53] LABS: ETHANOL BLOOD 298 mg/dL
[2021-12-15 01:03] LABS: PLATELET 40 x1000/uL (130-400)
[2021-12-15 01:13] LABS: CLARITY URINE CLEAR (CLEAR); COLOR URINE YELLOW (YELLOW); KETONES URINE NEGATIVE (NEGATIVE); LEUKOCYTE ESTERASE URINE NEGATIVE (NEGATIVE); NITRITE URINE NEGATIVE (NEGATIVE); OCCULT BLOOD URINE NEGATIVE (NEGATIVE); PROTEIN URINE NEGATIVE (NEGATIVE); SPECIFIC GRAVITY URINE 1.035 (1.005-1.030)
[2021-12-15 05:11] LABS: PLATELET ESTIMATE DECREASED
== END 2021-12-15 02:45 | disposition home or self-care (01) ==
LOC: ER 23:24
DX: D69.6 Thrombocytopenia, unspecified (principal); F10.229 Alcohol dependence with intoxication, unspecified; D64.9 Anemia, unspecified; E11.9 Type 2 diabetes mellitus without complications; I10 Essential (primary) hypertension; Y90.8 Blood alcohol level of 240 mg/100 ml or more; Z79.899 Other long term (current) drug therapy; Z20.822 Contact with and (suspected) exposure to COVID-19
CPT/HCPCS: 36415; 71045; 80053; 80320; 81003; 85025; 87426; 99284; G0480

== ENCOUNTER 2021-12-15 21:43 | Emergency (ER) | payer OTHER ==
[~2021-12-15] VITALS: Ht 167.6 cm; Wt 64.0 kg
[2021-12-15 22:06] VITALS: BP 149/92
[2021-12-16 00:10] LABS: HEMATOCRIT. 31.9 % (42.0-52.0); HEMOGLOBIN. 9.6 g/dL (14.0-18.0); MEAN CORPUSCULAR HEMOGLOBIN 24.6 pg (28.0-32.0); MEAN CORPUSCULAR VOLUME 81.7 fL (80.0-94.0); MEAN PLATELET VOLUME 9.5 fl (7.4-10.4); RED CELL DISTRIBUTION WIDTH 21.1 % (11.6-14.6)
[2021-12-16 00:17] LABS: CHLORIDE 104 mEq/L (98-107)
[2021-12-16 00:23] LABS: PLATELET 40 x1000/uL (130-400)
[2021-12-16] MEDS ORDERED: SODIUM CHLORIDE 0.9% 1,000 ML IV ONE ×2 (01:00→01:45)
[2021-12-16] MEDS ORDERED: ONDANSETRON HCL 4MG/2ML INJ IV ONE (01:00)
[2021-12-16 01:36] LABS: BG BASE EXCESS -1.6 mmol/L (-2.0-2.0); BG CARBOXYHEMOGLOBIN 0.9 % (0.5-1.5); BG DEOXYHEMOGLOBIN 5.2 % (0.0-5.0); BG FRACTION INSPIRED OXYGEN 21; BG HCO3 ACT 23.3 mmol/L (22.0-26.0); BG METHEMOGLOBIN 0.1 % (0.0-1.5); BG OXYGEN SATURATION 94.7 % (92.0-98.5); BG OXYHEMOGLOBIN 93.8 % (94.0-97.0); BG PCO2 40.1 mmHg (35.0-45.0); BG PH 7.383 (7.350-7.450); BG PO2 87.2 mmHg (75.0-100.0); BG SAMPLE SITE RIGHT RADIAL; BG TOTAL HEMOGLOBIN 10.1 g/dL (12.0-18.0); BG VENT MODE ROOM AIR
[2021-12-16 01:49] LABS: CLARITY URINE CLEAR (CLEAR); COLOR URINE YELLOW (YELLOW); KETONES URINE NEGATIVE (NEGATIVE); LEUKOCYTE ESTERASE URINE NEGATIVE (NEGATIVE); NITRITE URINE NEGATIVE (NEGATIVE); OCCULT BLOOD URINE NEGATIVE (NEGATIVE); PH URINE 6.5 (4.5-8.0); PROTEIN URINE NEGATIVE (NEGATIVE); SPECIFIC GRAVITY URINE 1.019 (1.005-1.030); UROBILINOGEN URINE 0.2 E.U./dL (0.2-1.0)
[2021-12-16 01:55] LABS: BETA HYDROXYBUTYRATE 0.1 mMol/L (0.0-0.3)
[2021-12-16 02:06] LABS: *AMPHETAMINES SCREEN URINE NEGATIVE (NEGATIVE); *BARBITURATES SCREEN URINE NEGATIVE (NEGATIVE); *BENZODIAZEPINES SCREEN URINE PRESUMTIVE POSITIVE (NEGATIVE); *COCAINE SCREEN URINE NEGATIVE (NEGATIVE); CANNABINOID URINE SCREEN NEGATIVE (NEGATIVE); METHADONE URINE SCREEN NEGATIVE (NEGATIVE); OPIATES URINE SCREEN NEGATIVE (NEGATIVE); PHENCYCLIDINE URINE SCREEN NEGATIVE (NEGATIVE)
[2021-12-16 02:17] LABS: ETHANOL BLOOD 368 mg/dL
[2021-12-16 05:12] LABS: PLATELET ESTIMATE DECREASED
== END 2021-12-16 02:33 | disposition left against medical advice (07) ==
LOC: ER 21:43
DX: K70.31 Alcoholic cirrhosis of liver with ascites (principal); K76.6 Portal hypertension; E11.65 Type 2 diabetes mellitus with hyperglycemia; F10.229 Alcohol dependence with intoxication, unspecified; Y90.8 Blood alcohol level of 240 mg/100 ml or more; I10 Essential (primary) hypertension; I86.4 Gastric varices; Z79.4 Long term (current) use of insulin
CPT/HCPCS: 36415; 36600; 71045; 74176; 80053; 80305; 80320; 81003; 82010; 82375; 82805; 83605; 83690; 84484; 85025; 93005; 96361; 96374; 99285; J2405; J7030; G0480

== ENCOUNTER 2021-12-16 10:27 | Emergency (ER) | payer OTHER ==
[~2021-12-16] VITALS: Ht 167.6 cm; Wt 73.5 kg
[2021-12-16 11:08] VITALS: BP 130/94
[2021-12-16 12:05] LABS: HEMATOCRIT. 29.3 % (42.0-52.0); HEMOGLOBIN. 8.8 g/dL (14.0-18.0); MEAN CORPUSCULAR HEMOGLOBIN 24.6 pg (28.0-32.0); MEAN CORPUSCULAR VOLUME 82.1 fL (80.0-94.0); MEAN PLATELET VOLUME 10.2 fl (7.4-10.4); RED BLOOD CELL COUNT 3.57 mill/uL (4.7-6.1); RED CELL DISTRIBUTION WIDTH 21.3 % (11.6-14.6)
[2021-12-16 12:17] LABS: CHLORIDE 108 mEq/L (98-107); INR 1.3; PARTIAL THROMBOPLASTIN TIME 30.8 sec (23.4-31.0)
[2021-12-16 12:23] LABS: PLATELET 38 x1000/uL (130-400)
[2021-12-16 12:42] LABS: CLARITY URINE CLEAR (CLEAR); COLOR URINE YELLOW (YELLOW); KETONES URINE NEGATIVE (NEGATIVE); LEUKOCYTE ESTERASE URINE NEGATIVE (NEGATIVE); NITRITE URINE NEGATIVE (NEGATIVE); OCCULT BLOOD URINE NEGATIVE (NEGATIVE); PROTEIN URINE NEGATIVE (NEGATIVE); SPECIFIC GRAVITY URINE 1.036 (1.005-1.030); UROBILINOGEN URINE 0.2 E.U./dL (0.2-1.0)
[2021-12-16] MEDS ORDERED: METOCLOPRAMIDE HCL 10MG/2ML VIAL IV ONE (12:45)
[2021-12-16 12:58] LABS: ETHANOL BLOOD 348 mg/dL
[2021-12-16 13:07] LABS: *AMPHETAMINES SCREEN URINE NEGATIVE (NEGATIVE); *BARBITURATES SCREEN URINE NEGATIVE (NEGATIVE); *BENZODIAZEPINES SCREEN URINE PRESUMTIVE POSITIVE (NEGATIVE); *COCAINE SCREEN URINE NEGATIVE (NEGATIVE); CANNABINOID URINE SCREEN NEGATIVE (NEGATIVE); METHADONE URINE SCREEN NEGATIVE (NEGATIVE); OPIATES URINE SCREEN NEGATIVE (NEGATIVE); PHENCYCLIDINE URINE SCREEN NEGATIVE (NEGATIVE)
[2021-12-16 13:22] LABS: PLATELET ESTIMATE MARKEDLY DECREASED
== END 2021-12-16 14:00 | disposition left against medical advice (07) ==
LOC: ER 10:27 → CANBEDREQ 13:31 → ER 14:00
DX: D69.59 Other secondary thrombocytopenia (principal); F10.20 Alcohol dependence, uncomplicated; Y90.8 Blood alcohol level of 240 mg/100 ml or more; E11.65 Type 2 diabetes mellitus with hyperglycemia; K70.30 Alcoholic cirrhosis of liver without ascites; I10 Essential (primary) hypertension; F13.20 Sedative, hypnotic or anxiolytic dependence, uncomplicated; Z71.89 Other specified counseling
CPT/HCPCS: 36415; 80053; 80305; 80320; 81003; 83690; 85025; 85610; 85730; 96374; 99283; J2765; G0480

== ENCOUNTER 2021-12-16 23:48 | Emergency (ER) | payer OTHER ==
[~2021-12-16] VITALS: Ht 167.6 cm; Wt 74.9 kg
[2021-12-17 01:00] LABS: HEMATOCRIT. 29.6 % (42.0-52.0); HEMOGLOBIN. 8.9 g/dL (14.0-18.0); MEAN CORPUSCULAR HEMOGLOBIN 24.4 pg (28.0-32.0); MEAN CORPUSCULAR VOLUME 81.2 fL (80.0-94.0); MEAN PLATELET VOLUME 9.5 fl (7.4-10.4); RED BLOOD CELL COUNT 3.64 mill/uL (4.7-6.1)
[2021-12-17 01:13] LABS: PLATELET 38 x1000/uL (130-400)
[2021-12-17 01:31] LABS: CHLORIDE 105 mEq/L (98-107)
[2021-12-17 01:42] LABS: ETHANOL BLOOD 330 mg/dL
[2021-12-17] MEDS ORDERED: MAGNESIUM/ALUMINUM HYDROXIDE/SIMETHICONE 30ML UDC PO STA (03:04)
[2021-12-17] MEDS ORDERED: VISCOUS LIDOCAINE 2% 15 ML UDC PO STA (03:04)
[2021-12-17] MEDS ORDERED: METOCLOPRAMIDE HCL 10MG TABLET PO ONE (03:15)
[2021-12-17] MEDS ORDERED: FOLIC ACID 1 MG, THIAMINE HCL 100 MG, MVI, ADULT NO.1 10 ML in DEXTROSE 5% WATER 1,000 ML IV ONE ×4 (04:00)
[2021-12-17] MEDS ORDERED: MORPHINE SULFATE 2 MG/ML CPJ (NOT FOR IM USE) IV ONE (04:00)
[2021-12-17] MEDS ORDERED: ONDANSETRON HCL 4MG/2ML INJ IV ONE (04:00)
[2021-12-17 06:15] VITALS: BP 121/78
[2021-12-17 07:20] LABS: PLATELET ESTIMATE MARKEDLY DECREASED
== END 2021-12-17 06:38 | disposition home or self-care (01) ==
LOC: ER 23:48
DX: K70.30 Alcoholic cirrhosis of liver without ascites (principal); D69.59 Other secondary thrombocytopenia; I10 Essential (primary) hypertension; F10.229 Alcohol dependence with intoxication, unspecified; Y90.8 Blood alcohol level of 240 mg/100 ml or more; D64.9 Anemia, unspecified
CPT/HCPCS: 36415; 71045; 80048; 80320; 82962; 85025; 96365; 96366; 96375; 99284; J2270; J2405; J3411; J3490; J7070; J8597; G0480

== ENCOUNTER 2021-12-18 23:54 | Emergency (ER) | payer OTHER ==
[~2021-12-18] VITALS: Ht 167.6 cm; Wt 76.2 kg
[2021-12-19 01:14] LABS: HEMATOCRIT. 29.1 % (42.0-52.0); HEMOGLOBIN. 8.9 g/dL (14.0-18.0); MEAN CORPUSCULAR HEMOGLOBIN 24.4 pg (28.0-32.0); MEAN CORPUSCULAR VOLUME 79.4 fL (80.0-94.0); MEAN PLATELET VOLUME 9.9 fl (7.4-10.4); RED BLOOD CELL COUNT 3.66 mill/uL (4.7-6.1); RED CELL DISTRIBUTION WIDTH 20.2 % (11.6-14.6)
[2021-12-19 01:33] LABS: PLATELET 39 x1000/uL (130-400)
[2021-12-19 01:37] LABS: PLATELET ESTIMATE MARKEDLY DECREASED
[2021-12-19 01:39] LABS: CHLORIDE 102 mEq/L (98-107)
[2021-12-19 02:21] LABS: ETHANOL BLOOD 375 mg/dL
[2021-12-19 02:58] LABS: CLARITY URINE CLEAR (CLEAR); COLOR URINE YELLOW (YELLOW); KETONES URINE NEGATIVE (NEGATIVE); LEUKOCYTE ESTERASE URINE NEGATIVE (NEGATIVE); NITRITE URINE NEGATIVE (NEGATIVE); OCCULT BLOOD URINE 1+ (NEGATIVE); PH URINE 6.5 (4.5-8.0); PROTEIN URINE NEGATIVE (NEGATIVE); SPECIFIC GRAVITY URINE 1.025 (1.005-1.030)
[2021-12-19] MEDS ORDERED: ONDANSETRON HCL 4MG/2ML INJ IV NR (04:30)
[2021-12-19] MEDS ORDERED: SODIUM CHLORIDE 0.9% 1,000 ML IV ONE (04:30)
[2021-12-19] MEDS ORDERED: PANTOPRAZOLE SODIUM 40 MG/VIAL IV NR (04:30)
[2021-12-19 06:30] VITALS: BP 132/87
== END 2021-12-19 06:52 | disposition home or self-care (01) ==
LOC: ER 23:54
DX: F10.229 Alcohol dependence with intoxication, unspecified (principal); K29.20 Alcoholic gastritis without bleeding; K70.40 Alcoholic hepatic failure without coma; D69.6 Thrombocytopenia, unspecified; Y90.8 Blood alcohol level of 240 mg/100 ml or more
CPT/HCPCS: 36415; 71045; 80053; 80320; 81003; 83690; 85025; 96361; 96374; 96375; 99284; C9113; J2405; G0480

== ENCOUNTER 2021-12-20 23:28 | Emergency (ER) | payer OTHER ==
[~2021-12-20] VITALS: Ht 162.6 cm; Wt 77.0 kg
[2021-12-21 01:23] VITALS: BP 148/89
[2021-12-21 03:32] LABS: HEMATOCRIT. 28.5 % (42.0-52.0); HEMOGLOBIN. 8.9 g/dL (14.0-18.0); MEAN CORPUSCULAR HEMOGLOBIN 24.1 pg (28.0-32.0); MEAN CORPUSCULAR VOLUME 77.6 fL (80.0-94.0); MEAN PLATELET VOLUME 9.3 fl (7.4-10.4); RED BLOOD CELL COUNT 3.68 mill/uL (4.7-6.1); RED CELL DISTRIBUTION WIDTH 21.2 % (11.6-14.6)
[2021-12-21 03:38] LABS: CHLORIDE 103 mEq/L (98-107)
[2021-12-21 03:40] LABS: INR 1.3; PROTHROMBIN TIME 13.7 sec (9.6-11.0)
[2021-12-21 04:07] LABS: PLATELET ESTIMATE MARKEDLY DECREASED
[2021-12-23 11:26] LABS: PLATELET 41 x1000/uL (130-400)
== END 2021-12-21 08:35 | disposition home or self-care (01) ==
LOC: ER 23:28
DX: S00.81XA Abrasion of other part of head, initial encounter (principal); F10.229 Alcohol dependence with intoxication, unspecified; R18.8 Other ascites; K70.9 Alcoholic liver disease, unspecified; Y90.8 Blood alcohol level of 240 mg/100 ml or more; I10 Essential (primary) hypertension; D69.6 Thrombocytopenia, unspecified; W17.89XA Other fall from one level to another, initial encounter; Y93.39 Activity, other involving climbing, rappelling and jumping off; Y92.018 Other place in single-family (private) house as the place of occurrence of the external cause
CPT/HCPCS: 36415; 71045; 80053; 80320; 85025; 93005; 99285; G0480

== ENCOUNTER 2021-12-22 10:21 | Emergency (ER) | payer OTHER ==
[~2021-12-22] VITALS: Ht 167.6 cm; Wt 70.0 kg
[2021-12-22 10:30] VITALS: BP 151/97
[2021-12-22 11:54] LABS: HEMATOCRIT. 27.7 % (42.0-52.0); HEMOGLOBIN. 8.5 g/dL (14.0-18.0); MEAN CORPUSCULAR HEMOGLOBIN 23.9 pg (28.0-32.0); MEAN CORPUSCULAR VOLUME 78.1 fL (80.0-94.0); MEAN PLATELET VOLUME 9.4 fl (7.4-10.4); RED BLOOD CELL COUNT 3.55 mill/uL (4.7-6.1); RED CELL DISTRIBUTION WIDTH 21.1 % (11.6-14.6)
[2021-12-22 11:55] LABS: CHLORIDE 100 mEq/L (98-107)
[2021-12-22 11:57] LABS: PLATELET 29 x1000/uL (130-400)
[2021-12-22 12:04] LABS: ETHANOL BLOOD 286 mg/dL
[2021-12-22] MEDS ORDERED: ONDANSETRON HCL 4MG/2ML INJ IV ONE (12:15)
[2021-12-22 12:16] LABS: PLATELET ESTIMATE MARKEDLY DECREASED
== END 2021-12-22 16:28 | disposition home or self-care (01) ==
LOC: ER 10:27
DX: K70.30 Alcoholic cirrhosis of liver without ascites (principal); D69.6 Thrombocytopenia, unspecified; F10.229 Alcohol dependence with intoxication, unspecified; Y90.8 Blood alcohol level of 240 mg/100 ml or more; D64.9 Anemia, unspecified; E11.9 Type 2 diabetes mellitus without complications; I10 Essential (primary) hypertension; Z79.899 Other long term (current) drug therapy
CPT/HCPCS: 36415; 80053; 80320; 83690; 85025; 93005; 96374; 99284; J2405; G0480

== ENCOUNTER 2021-12-24 17:11 | Emergency (ER) | payer OTHER ==
[~2021-12-24] VITALS: Ht 167.6 cm; Wt 68.0 kg
[2021-12-24] MEDS ORDERED: MAGNESIUM/ALUMINUM HYDROXIDE/SIMETHICONE 30ML UDC PO STA (17:38)
[2021-12-24] MEDS ORDERED: ONDANSETRON HCL 4MG/2ML INJ IV STA (17:38)
[2021-12-24] MEDS ORDERED: VISCOUS LIDOCAINE 2% 15 ML UDC PO STA (17:38)
[2021-12-24] MEDS ORDERED: PANTOPRAZOLE SODIUM 40 MG/VIAL IV ONE (17:45)
[2021-12-24 18:12] LABS: HEMATOCRIT. 27.4 % (42.0-52.0); HEMOGLOBIN. 8.3 g/dL (14.0-18.0); MEAN CORPUSCULAR HEMOGLOBIN 24.3 pg (28.0-32.0); MEAN CORPUSCULAR VOLUME 79.8 fL (80.0-94.0); MEAN PLATELET VOLUME 9.2 fl (7.4-10.4); RED BLOOD CELL COUNT 3.44 mill/uL (4.7-6.1); RED CELL DISTRIBUTION WIDTH 21.6 % (11.6-14.6)
[2021-12-24 18:18] LABS: PLATELET 29 x1000/uL (130-400)
[2021-12-24 18:20] LABS: CHLORIDE 101 mEq/L (98-107)
[2021-12-24 18:22] LABS: INR 1.4; PROTHROMBIN TIME 14.2 sec (9.6-11.0)
[2021-12-24 18:32] LABS: CREATINE KINASE 189 IU/L (39-308); ETHANOL BLOOD 298 mg/dL
[2021-12-24] MEDS ORDERED: MAGNESIUM/ALUMINUM HYDROXIDE/SIMETHICONE 30ML UDC PO SCH (19:45)
[2021-12-24] MEDS ORDERED: VISCOUS LIDOCAINE 2% 15 ML UDC PO SCH (19:45)
[2021-12-24] MEDS ORDERED: ONDANSETRON HCL 4MG/2ML INJ IV SCH (20:00)
[2021-12-24] MEDS ORDERED: PANTOPRAZOLE SODIUM 40 MG/VIAL IV SCH (20:00)
[2021-12-24 20:44] LABS: PLATELET ESTIMATE MARKEDLY DECREASED
[2021-12-24 23:16] LABS: CLARITY URINE CLEAR (CLEAR); COLOR URINE DARK YELLOW (YELLOW); KETONES URINE NEGATIVE (NEGATIVE); LEUKOCYTE ESTERASE URINE NEGATIVE (NEGATIVE); NITRITE URINE NEGATIVE (NEGATIVE); OCCULT BLOOD URINE 3+ (NEGATIVE); PH URINE 6.5 (4.5-8.0); PROTEIN URINE NEGATIVE (NEGATIVE); SPECIFIC GRAVITY URINE 1.024 (1.005-1.030)
[2021-12-24 23:23] VITALS: BP 124/81
[2021-12-24 23:25] LABS: *AMPHETAMINES SCREEN URINE NEGATIVE (NEGATIVE); *BARBITURATES SCREEN URINE NEGATIVE (NEGATIVE); *BENZODIAZEPINES SCREEN URINE PRESUMTIVE POSITIVE (NEGATIVE); *COCAINE SCREEN URINE NEGATIVE (NEGATIVE); CANNABINOID URINE SCREEN NEGATIVE (NEGATIVE); METHADONE URINE SCREEN NEGATIVE (NEGATIVE); OPIATES URINE SCREEN NEGATIVE (NEGATIVE); PHENCYCLIDINE URINE SCREEN NEGATIVE (NEGATIVE)
== END 2021-12-24 23:26 | disposition short-term general hospital (02) ==
LOC: ER 17:11 → CANBEDREQ 12-25 21:30
DX: K92.0 Hematemesis (principal); D69.6 Thrombocytopenia, unspecified; F17.200 Nicotine dependence, unspecified, uncomplicated; F10.129 Alcohol abuse with intoxication, unspecified; I10 Essential (primary) hypertension; E11.9 Type 2 diabetes mellitus without complications; Z79.899 Other long term (current) drug therapy; Y90.8 Blood alcohol level of 240 mg/100 ml or more
CPT/HCPCS: 36415; 71045; 74176; 80053; 80305; 80320; 81003; 82550; 83605; 83615; 83690; 83880; 84145; 84484; 85025; 85610; 86140; 87040; 87086; 93005; 96374; 96375; 99291; C9113; J2405; G0480

== ENCOUNTER 2022-01-07 04:57 | Emergency (ER) | payer OTHER ==
[~2022-01-07] VITALS: Ht 167.6 cm; Wt 75.0 kg
[2022-01-07] MEDS ORDERED: MORPHINE SULFATE 4 MG/ML CPJ (NOT FOR IM USE) IV STA (05:41)
[2022-01-07] MEDS ORDERED: FAMOTIDINE 20MG/2ML VIAL IV STA (05:41)
[2022-01-07] MEDS ORDERED: ONDANSETRON HCL 4MG/2ML INJ IV STA (05:41)
[2022-01-07] MEDS ORDERED: PANTOPRAZOLE SODIUM 40 MG/VIAL IV STA (05:41)
[2022-01-07 06:16] LABS: INR 1.3
[2022-01-07 06:19] LABS: CHLORIDE 104 mEq/L (98-107)
[2022-01-07 06:26] LABS: HEMATOCRIT. 29.2 % (42.0-52.0); HEMOGLOBIN. 8.9 g/dL (14.0-18.0); MEAN CORPUSCULAR HEMOGLOBIN 24.1 pg (28.0-32.0); MEAN CORPUSCULAR VOLUME 79.2 fL (80.0-94.0); MEAN PLATELET VOLUME 9.8 fl (7.4-10.4); PLATELET 77 x1000/uL (130-400); RED BLOOD CELL COUNT 3.69 mill/uL (4.7-6.1); RED CELL DISTRIBUTION WIDTH 22.7 % (11.6-14.6)
[2022-01-07 06:47] LABS: ETHANOL BLOOD 373 mg/dL
[2022-01-07] MEDS ORDERED: INSULIN REGULAR (HUMULIN R) 300UNITS/3ML VIAL SUBCUT ONE (07:30)
[2022-01-07] MEDS ORDERED: SODIUM CHLORIDE 0.9% 1,000 ML IV ONE (07:30)
[2022-01-07 07:58] LABS: PLATELET ESTIMATE DECREASED
[2022-01-07] MEDS ORDERED: BLOO-1451 MC (08:55)
[2022-01-07 09:44] VITALS: BP 147/78
== END 2022-01-07 10:34 | disposition home or self-care (01) ==
LOC: ER 05:11
DX: K70.30 Alcoholic cirrhosis of liver without ascites (principal); F10.10 Alcohol abuse, uncomplicated; E11.9 Type 2 diabetes mellitus without complications; I10 Essential (primary) hypertension; Z79.899 Other long term (current) drug therapy; Y90.8 Blood alcohol level of 240 mg/100 ml or more
CPT/HCPCS: 36415; 80053; 80320; 82962; 83690; 85025; 85610; 86850; 86900; 86901; 96361; 96372; 96374; 96375; 99284; C9113; J1815; J2270; J2405; J3490; J7030; G0480

== ENCOUNTER 2022-01-08 18:21 | Emergency (ER) | payer OTHER ==
[~2022-01-08] VITALS: Ht 167.6 cm; Wt 78.7 kg
[~2022-01-08 18:21] MED LIST changes: +BLOO-1451 MC
[2022-01-08 18:30] VITALS: BP 162/101
[2022-01-08 20:21] LABS: CHLORIDE 102 mEq/L (98-107)
[2022-01-08 20:26] LABS: HEMATOCRIT. 27.4 % (42.0-52.0); HEMOGLOBIN. 8.5 g/dL (14.0-18.0); MEAN CORPUSCULAR HEMOGLOBIN 23.8 pg (28.0-32.0); MEAN CORPUSCULAR VOLUME 77.1 fL (80.0-94.0); MEAN PLATELET VOLUME 10.1 fl (7.4-10.4); PLATELET 51 x1000/uL (130-400); RED BLOOD CELL COUNT 3.55 mill/uL (4.7-6.1); RED CELL DISTRIBUTION WIDTH 22.7 % (11.6-14.6)
[2022-01-08 20:40] LABS: ETHANOL BLOOD 357 mg/dL
[2022-01-08 21:10] LABS: PLATELET ESTIMATE DECREASED
[2022-01-08 22:05] LABS: CLARITY URINE CLEAR (CLEAR); COLOR URINE YELLOW (YELLOW); KETONES URINE NEGATIVE (NEGATIVE); LEUKOCYTE ESTERASE URINE NEGATIVE (NEGATIVE); NITRITE URINE NEGATIVE (NEGATIVE); OCCULT BLOOD URINE 1+ (NEGATIVE); PH URINE 6.5 (4.5-8.0); PROTEIN URINE NEGATIVE (NEGATIVE); SPECIFIC GRAVITY URINE 1.015 (1.005-1.030); UROBILINOGEN URINE 0.2 E.U./dL (0.2-1.0)
[2022-01-08 22:14] LABS: *AMPHETAMINES SCREEN URINE NEGATIVE (NEGATIVE); *BARBITURATES SCREEN URINE NEGATIVE (NEGATIVE); *BENZODIAZEPINES SCREEN URINE NEGATIVE (NEGATIVE); *COCAINE SCREEN URINE NEGATIVE (NEGATIVE); CANNABINOID URINE SCREEN NEGATIVE (NEGATIVE); METHADONE URINE SCREEN NEGATIVE (NEGATIVE); OPIATES URINE SCREEN NEGATIVE (NEGATIVE); PHENCYCLIDINE URINE SCREEN NEGATIVE (NEGATIVE)
[2022-01-09] MEDS ORDERED: ACETAMINOPHEN 500MG TABLET PO ONE (01:30)
== END 2022-01-09 02:14 | disposition home or self-care (01) ==
LOC: ER 18:21
DX: F10.229 Alcohol dependence with intoxication, unspecified (principal); K70.30 Alcoholic cirrhosis of liver without ascites; Y90.8 Blood alcohol level of 240 mg/100 ml or more; E11.65 Type 2 diabetes mellitus with hyperglycemia
CPT/HCPCS: 36415; 71045; 80053; 80305; 80320; 81003; 83880; 85025; 93005; 99285; G0480

== ENCOUNTER 2022-01-10 23:33 | Emergency (ER) | payer MEDICAID, OTHER ==
[~2022-01-10] VITALS: Ht 167.6 cm; Wt 68.0 kg
[2022-01-11 00:21] VITALS: BP 157/96
[2022-01-11 01:35] LABS: HEMATOCRIT. 28.4 % (42.0-52.0); HEMOGLOBIN. 8.7 g/dL (14.0-18.0); MEAN CORPUSCULAR HEMOGLOBIN 23.7 pg (28.0-32.0); MEAN CORPUSCULAR VOLUME 77.5 fL (80.0-94.0); MEAN PLATELET VOLUME 9.4 fl (7.4-10.4); RED BLOOD CELL COUNT 3.66 mill/uL (4.7-6.1); RED CELL DISTRIBUTION WIDTH 22.1 % (11.6-14.6)
[2022-01-11 01:40] LABS: CHLORIDE 103 mEq/L (98-107)
[2022-01-11 01:42] LABS: PLATELET 40 x1000/uL (130-400)
[2022-01-11 01:53] LABS: ETHANOL BLOOD 334 mg/dL
[2022-01-11 03:49] LABS: PLATELET ESTIMATE MARKEDLY DECREASED
== END 2022-01-11 09:21 | disposition left against medical advice (07) ==
LOC: ER 23:33
DX: R10.84 Generalized abdominal pain (principal); D61.818 Other pancytopenia; F10.229 Alcohol dependence with intoxication, unspecified; Y90.8 Blood alcohol level of 240 mg/100 ml or more; E11.65 Type 2 diabetes mellitus with hyperglycemia; K70.9 Alcoholic liver disease, unspecified; R53.1 Weakness; R26.2 Difficulty in walking, not elsewhere classified
CPT/HCPCS: 36415; 80053; 80320; 85025; 99283; G0480

== ENCOUNTER 2022-01-14 23:17 | Emergency (ER) | payer MEDICAID ==
[~2022-01-14] VITALS: Ht 167.6 cm; Wt 77.6 kg
[2022-01-14 23:57] VITALS: BP 145/101
[2022-01-15] MEDS ORDERED: IBUPROFEN 600MG TABLET PO ONE (02:15)
== END 2022-01-15 02:32 | disposition home or self-care (01) ==
LOC: ER 23:17
DX: F10.288 Alcohol dependence with other alcohol-induced disorder (principal); G89.29 Other chronic pain; R10.9 Unspecified abdominal pain; I10 Essential (primary) hypertension; R00.0 Tachycardia, unspecified; Z76.5 Malingerer [conscious simulation]; Y90.9 Presence of alcohol in blood, level not specified; Z71.41 Alcohol abuse counseling and surveillance of alcoholic
CPT/HCPCS: 93005; 99283

== ENCOUNTER 2022-01-28 04:28 | Emergency (ER) | payer MEDICAID ==
[~2022-01-28] VITALS: Ht 162.6 cm; Wt 92.0 kg
[2022-01-28 04:31] VITALS: BP 152/97
[2022-01-28 06:48] LABS: CHLORIDE 103 mEq/L (98-107)
[2022-01-28 06:55] LABS: HEMATOCRIT. 29.4 % (42.0-52.0); HEMOGLOBIN. 8.9 g/dL (14.0-18.0); MEAN CORPUSCULAR HEMOGLOBIN 23.9 pg (28.0-32.0); MEAN CORPUSCULAR VOLUME 78.9 fL (80.0-94.0); MEAN PLATELET VOLUME 9.3 fl (7.4-10.4); RED BLOOD CELL COUNT 3.73 mill/uL (4.7-6.1)
[2022-01-28 06:56] LABS: CLARITY URINE CLEAR (CLEAR); COLOR URINE DARK YELLOW (YELLOW); KETONES URINE TRACE (NEGATIVE); LEUKOCYTE ESTERASE URINE NEGATIVE (NEGATIVE); NITRITE URINE NEGATIVE (NEGATIVE); OCCULT BLOOD URINE NEGATIVE (NEGATIVE); PROTEIN URINE TRACE (NEGATIVE); SPECIFIC GRAVITY URINE 1.033 (1.005-1.030)
[2022-01-28 07:08] LABS: ETHANOL BLOOD 315 mg/dL
[2022-01-28 07:16] LABS: PLATELET 45 x1000/uL (130-400)
[2022-01-28 07:58] LABS: PLATELET ESTIMATE MARKEDLY DECREASED
[2022-01-28] MEDS ORDERED: ACETAMINOPHEN 325MG TABLET PO ONE (08:15)
[2022-01-28] MEDS ORDERED: ONDANSETRON 4MG/5ML UDC PO ONE (08:30)
== END 2022-01-28 09:12 | disposition home or self-care (01) ==
LOC: ER 04:37
DX: R10.9 Unspecified abdominal pain (principal); I10 Essential (primary) hypertension; E11.9 Type 2 diabetes mellitus without complications; Z79.899 Other long term (current) drug therapy
CPT/HCPCS: 36415; 74176; 80053; 80320; 81003; 85025; 99284; G0480

== ENCOUNTER 2022-01-28 21:43 | Emergency (ER) | payer MEDICAID ==
[~2022-01-28] VITALS: Ht 167.6 cm; Wt 76.5 kg
[2022-01-28 22:22] VITALS: BP 166/96
== END 2022-01-29 03:36 | disposition left against medical advice (07) ==
LOC: ER 21:43
DX: Z53.21 Procedure and treatment not carried out due to patient leaving prior to being seen by health care provider (principal)

== ENCOUNTER 2022-01-31 04:03 | Emergency (ER) | payer MEDICAID ==
[~2022-01-31] VITALS: Ht 167.6 cm; Wt 72.0 kg
[2022-01-31 04:13] VITALS: BP 153/102
[2022-01-31 06:19] LABS: HEMATOCRIT. 29.8 % (42.0-52.0); HEMOGLOBIN. 9.1 g/dL (14.0-18.0); MEAN CORPUSCULAR HEMOGLOBIN 23.6 pg (28.0-32.0); MEAN CORPUSCULAR VOLUME 77.7 fL (80.0-94.0); RED BLOOD CELL COUNT 3.84 mill/uL (4.7-6.1); RED CELL DISTRIBUTION WIDTH 21.7 % (11.6-14.6)
[2022-01-31 06:27] LABS: CHLORIDE 100 mEq/L (98-107)
[2022-01-31 06:37] LABS: ETHANOL BLOOD 218 mg/dL
[2022-01-31 07:34] LABS: INR 1.3; PARTIAL THROMBOPLASTIN TIME 30.8 sec (23.4-31.0); PROTHROMBIN TIME 13.8 sec (9.6-11.0)
[2022-01-31] MEDS ORDERED: ONDANSETRON HCL 4MG/2ML INJ IV ONE (08:30)
[2022-01-31] MEDS ORDERED: FAMOTIDINE 20MG/2ML VIAL IV ONE (09:15)
[2022-01-31] MEDS ORDERED: LIDOCAINE HCL/PF 1% 10 MG/ML 5ML VIAL ONE (09:15)
[2022-01-31] MEDS ORDERED: SODIUM CHLORIDE 0.9% 500 ML IV ONE (09:15)
[2022-01-31] MEDS ORDERED: SODIUM BICARBONATE 4% (2.4MEQ) 5ML VIAL IV ONE (09:15)
[2022-01-31 09:21] LABS: PLATELET 38 x1000/uL (130-400)
[2022-01-31 09:24] LABS: CLARITY URINE CLEAR (CLEAR); COLOR URINE DARK YELLOW (YELLOW); KETONES URINE TRACE (NEGATIVE); LEUKOCYTE ESTERASE URINE NEGATIVE (NEGATIVE); NITRITE URINE NEGATIVE (NEGATIVE); OCCULT BLOOD URINE TRACE (NEGATIVE); PROTEIN URINE TRACE (NEGATIVE); SPECIFIC GRAVITY URINE 1.018 (1.005-1.030)
[2022-01-31 09:29] LABS: PLATELET ESTIMATE MARKEDLY DECREASED
[2022-01-31 09:56] LABS: *AMPHETAMINES SCREEN URINE NEGATIVE (NEGATIVE); *BARBITURATES SCREEN URINE NEGATIVE (NEGATIVE); *BENZODIAZEPINES SCREEN URINE NEGATIVE (NEGATIVE); *COCAINE SCREEN URINE NEGATIVE (NEGATIVE); CANNABINOID URINE SCREEN NEGATIVE (NEGATIVE); METHADONE URINE SCREEN NEGATIVE (NEGATIVE); OPIATES URINE SCREEN NEGATIVE (NEGATIVE); PHENCYCLIDINE URINE SCREEN NEGATIVE (NEGATIVE)
[2022-01-31] MEDS ORDERED: OMEP20CA14 MT (10:21)
[2022-01-31] MEDS ORDERED: ONDA4TAB11 PO (10:21)
== END 2022-01-31 10:39 | disposition home or self-care (01) ==
LOC: ER 04:03
DX: R10.13 Epigastric pain (principal); E11.65 Type 2 diabetes mellitus with hyperglycemia; D61.818 Other pancytopenia; R11.10 Vomiting, unspecified; I10 Essential (primary) hypertension; Z79.899 Other long term (current) drug therapy; Z20.822 Contact with and (suspected) exposure to COVID-19
CPT/HCPCS: 36415; 76705; 80053; 80305; 80320; 81003; 83690; 85025; 85610; 85730; 87426; 96361; 96374; 96375; 99284; C9803; J2405; J3490; J7040; G0480

== ENCOUNTER 2022-03-03 20:55 | Emergency (ER) | payer MEDICAID ==
[~2022-03-03] VITALS: Ht 162.6 cm; Wt 73.4 kg
[~2022-03-03 20:55] MED LIST changes: +OMEP20CA14 MT; +ONDA4TAB11 PO
[2022-03-03] MEDS ORDERED: DIPH103G TP (22:11)
[2022-03-03] MEDS ORDERED: HYDR453.3 TP (22:11)
[2022-03-03 22:56] VITALS: BP 132/88
[2022-05-05] MEDS ORDERED: FURO-151 MT (12:10)
[2022-05-05] MEDS ORDERED: POTA-204 PO (12:10)
== END 2022-03-03 22:59 | disposition home or self-care (01) ==
LOC: ER 20:55
DX: L50.9 Urticaria, unspecified (principal)
CPT/HCPCS: 99281

== ENCOUNTER 2022-03-06 00:54 | Emergency (ER) | payer MEDICAID ==
[~2022-03-06] VITALS: Ht 160 cm; Wt 73.0 kg
[~2022-03-06 00:54] MED LIST changes: +DIPH103G TP; +HYDR453.3 TP
[2022-03-06 01:31] VITALS: BP 149/97
[2022-03-06 03:19] LABS: CHLORIDE 105 mEq/L (98-107)
[2022-03-06 03:21] LABS: BASOPHILS % 1.3 % (0.0-2.0); EOSINOPHILS % 2.4 % (0.0-5.0); HEMATOCRIT. 28.4 % (42.0-52.0); LYMPHOCYTES % 27.6 % (20.0-50.0); MEAN CORPUSCULAR HEMOGLOBIN 26.2 pg (28.0-32.0); MEAN CORPUSCULAR VOLUME 82.3 fL (80.0-94.0); MEAN PLATELET VOLUME 9.3 fl (7.4-10.4); MONOCYTES % 10.4 % (2.0-8.0); NEUTROPHILS % 58.3 % (40.0-76.0); PLATELET 64 x1000/uL (130-400); RED BLOOD CELL COUNT 3.45 mill/uL (4.7-6.1); RED CELL DISTRIBUTION WIDTH 25.5 % (11.6-14.6)
[2022-03-06] MEDS ORDERED: MAGNESIUM/ALUMINUM HYDROXIDE/SIMETHICONE 30ML UDC PO NR (04:30)
[2022-03-06 04:44] LABS: PLATELET ESTIMATE DECREASED
== END 2022-03-06 04:45 | disposition left against medical advice (07) ==
LOC: ER 00:54
DX: K70.9 Alcoholic liver disease, unspecified (principal); F10.20 Alcohol dependence, uncomplicated; Y90.9 Presence of alcohol in blood, level not specified; I10 Essential (primary) hypertension; E11.9 Type 2 diabetes mellitus without complications
CPT/HCPCS: 36415; 80053; 85025; 99283

== ENCOUNTER 2022-03-08 20:55 | Inpatient (IN) | payer MEDICAID ==
[~2022-03-08] VITALS: Ht 167.6 cm; Wt 64.9 kg
[2022-03-08] MEDS ORDERED: OCTREOTIDE ACETATE 50 MCG/ML 1ML IV STA (22:28)
[2022-03-08] MEDS ORDERED: ONDANSETRON HCL 4MG/2ML INJ IV STA (22:28)
[2022-03-08] MEDS ORDERED: PANTOPRAZOLE SODIUM 40 MG/VIAL IV STA (22:28)
[2022-03-08] MEDS ORDERED: SODIUM CHLORIDE 0.9% 1,000 ML IV ONE (22:30)
[2022-03-08 23:20] LABS: BASOPHILS % 0.9 % (0.0-2.0); EOSINOPHILS % 0.1 % (0.0-5.0); HEMATOCRIT. 21.6 % (42.0-52.0); MEAN CORPUSCULAR HEMOGLOBIN 26.2 pg (28.0-32.0); MEAN CORPUSCULAR VOLUME 85.8 fL (80.0-94.0); MEAN PLATELET VOLUME 10.4 fl (7.4-10.4); MONOCYTES % 7.1 % (2.0-8.0); NEUTROPHILS % 72.9 % (40.0-76.0); PLATELET 65 x1000/uL (130-400); RED BLOOD CELL COUNT 2.52 mill/uL (4.7-6.1); RED CELL DISTRIBUTION WIDTH 24.1 % (11.6-14.6)
[2022-03-08 23:28] LABS: CHLORIDE 103 mEq/L (98-107)
[2022-03-08 23:32] LABS: INR 1.5; PARTIAL THROMBOPLASTIN TIME 28.8 sec (23.4-31.0); PROTHROMBIN TIME 15.7 sec (9.6-11.0)
[2022-03-08 23:36] LABS: HEMOGLOBIN. 6.6 g/dL (14.0-18.0)
[2022-03-09] VITALS (12 sets, daily range): BP systolic 133–144; BP diastolic 63–91
[2022-03-09] LABS: PLATELET ESTIMATE DECREASED
[2022-03-09] MEDS ORDERED: ONDANSETRON HCL 4MG/2ML INJ IV ONE (02:45)
[2022-03-09] MEDS ORDERED: ACETAMINOPHEN 500MG TABLET PO ONE (02:45)
[2022-03-09] MEDS ORDERED: LORAZEPAM 0.5MG TABLET PO PRN (08:15)
[2022-03-09] MEDS ORDERED: CLONIDINE 0.1MG TABLET PO PRN (08:15)
[2022-03-09] MEDS ORDERED: ACETAMINOPHEN 325MG TABLET PO PRN ×2 (08:15)
[2022-03-09] MEDS ORDERED: ONDANSETRON HCL 4MG/2ML INJ IV PRN (08:15)
[2022-03-09] MEDS ORDERED: IPRATROPIUM/ALBUTEROL 0.5-3(2.5)MG/3ML NEB HHN PRN (08:15)
[2022-03-09 10:36] LABS: MEAN CORPUSCULAR HEMOGLOBIN 27.3 pg (28.0-32.0); MEAN CORPUSCULAR VOLUME 84.4 fL (80.0-94.0); RED BLOOD CELL COUNT 2.32 mill/uL (4.7-6.1); RED CELL DISTRIBUTION WIDTH 21.8 % (11.6-14.6)
[2022-03-09 10:40] LABS: CHLORIDE 105 mEq/L (98-107)
[2022-03-09 10:42] LABS: HEMATOCRIT 19.5 % (42.0-52.0); HEMOGLOBIN 6.3 g/dL (14.0-18.0)
[2022-03-09 10:47] LABS: PHOSPHORUS 4.2 mg/dL (2.5-4.9)
[2022-03-09] MEDS ORDERED: DEXTROSE 50% WATER 50ML SYRINGE IV PRN (11:45)
[2022-03-09] MEDS: BLOOD SUGAR DIAGNOSTIC STRIP TEST SCH ×3 (12:30→21:40)
[2022-03-09] MEDS: INSULIN LISPRO 100 UNITS/ML SUBCUT SCH ×3 (13:00→21:40)
[2022-03-09] MEDS: PANTOPRAZOLE SODIUM 40 MG/VIAL IV SCH ×2 (14:00→21:39)
[2022-03-09] MEDS ORDERED: MAGNESIUM 2 G PREMIX 50 ML IV NR (14:00)
[2022-03-09] MEDS ORDERED: FOLIC ACID 1 MG, THIAMINE HCL 100 MG, MVI, ADULT NO.1 10 ML in DEXTROSE 5% WATER 1,000 ML IV NR ×4 (14:30)
[2022-03-09 16:52] LABS: *AMPHETAMINES SCREEN URINE NEGATIVE (NEGATIVE); *BARBITURATES SCREEN URINE NEGATIVE (NEGATIVE); *BENZODIAZEPINES SCREEN URINE NEGATIVE (NEGATIVE); *COCAINE SCREEN URINE NEGATIVE (NEGATIVE); CANNABINOID URINE SCREEN NEGATIVE (NEGATIVE); METHADONE URINE SCREEN NEGATIVE (NEGATIVE); OPIATES URINE SCREEN NEGATIVE (NEGATIVE); PHENCYCLIDINE URINE SCREEN NEGATIVE (NEGATIVE)
[2022-03-09] MEDS: OCTREOTIDE 1,000 MCG in SODIUM CHLORIDE 0.9% 100 ML IV SCH (17:05)
[2022-03-09] MEDS: CHLORDIAZEPOXIDE 25MG CAPSULE PO SCH ×2 (18:31→21:39)
[2022-03-09 21:02] LABS: TOTAL IRON BINDING CAPACITY 328 ug/dL (250-450)
[2022-03-09 22:13] LABS: INR 1.5; PROTHROMBIN TIME 15.7 sec (9.6-11.0)
[2022-03-10] VITALS (32 sets, daily range): BP systolic 108–149; BP diastolic 62–89
[2022-03-10] MEDS: BLOOD SUGAR DIAGNOSTIC STRIP TEST SCH ×4 (07:11→22:05)
[2022-03-10 07:47] LABS: HEMATOCRIT. 21.3 % (42.0-52.0); MEAN CORPUSCULAR VOLUME 88.5 fL (80.0-94.0); RED BLOOD CELL COUNT 2.41 mill/uL (4.7-6.1)
[2022-03-10] MEDS: CHLORDIAZEPOXIDE 25MG CAPSULE PO SCH ×3 (07:51→22:08)
[2022-03-10] MEDS: PANTOPRAZOLE SODIUM 40 MG/VIAL IV SCH ×2 (07:52→22:08)
[2022-03-10 08:02] LABS: CHLORIDE 105 mEq/L (98-107)
[2022-03-10 08:13] LABS: TOTAL IRON BINDING CAPACITY 283 ug/dL (250-450)
[2022-03-10 08:18] LABS: PLATELET 22 x1000/uL (130-400)
[2022-03-10] MEDS: INSULIN LISPRO 100 UNITS/ML SUBCUT SCH ×4 (09:07→22:05)
[2022-03-10 12:24] LABS: PLATELET ESTIMATE MARKEDLY DECREASED
[2022-03-10 12:57] LABS: HEMATOCRIT 20.3 % (42.0-52.0); HEMOGLOBIN 6.7 g/dL (14.0-18.0)
[2022-03-10] MEDS: OCTREOTIDE 1,000 MCG in SODIUM CHLORIDE 0.9% 100 ML IV SCH (15:57)
[2022-03-10] MEDS ORDERED: CHLORDIAZEPOXIDE 25MG CAPSULE PO SCH (17:15)
[2022-03-10 20:16] LABS: BASOPHILS % 0.5 % (0.0-2.0); EOSINOPHILS % 1.5 % (0.0-5.0); HEMATOCRIT. 22.1 % (42.0-52.0); HEMOGLOBIN. 7.2 g/dL (14.0-18.0); LYMPHOCYTES % 12.1 % (20.0-50.0); MEAN CORPUSCULAR HEMOGLOBIN 29.1 pg (28.0-32.0); MEAN CORPUSCULAR VOLUME 88.7 fL (80.0-94.0); MEAN PLATELET VOLUME 10.6 fl (7.4-10.4); MONOCYTES % 7.8 % (2.0-8.0); NEUTROPHILS % 78.1 % (40.0-76.0); RED BLOOD CELL COUNT 2.49 mill/uL (4.7-6.1); RED CELL DISTRIBUTION WIDTH 17.5 % (11.6-14.6)
[2022-03-10 20:21] LABS: PLATELET 25 x1000/uL (130-400)
[2022-03-10] MEDS ORDERED: PANTOPRAZOLE SODIUM 40 MG/VIAL IV SCH (21:00)
[2022-03-11] VITALS (27 sets, daily range): BP systolic 90–149; BP diastolic 51–98
[2022-03-11] MEDS: OCTREOTIDE 1,000 MCG in SODIUM CHLORIDE 0.9% 100 ML IV SCH ×2 (06:00→16:58)
[2022-03-11 06:34] LABS: INR 1.6; PROTHROMBIN TIME 16.3 sec (9.6-11.0)
[2022-03-11 06:44] LABS: BASOPHILS % 0.7 % (0.0-2.0); EOSINOPHILS % 2.8 % (0.0-5.0); HEMATOCRIT. 27.4 % (42.0-52.0); HEMOGLOBIN. 9.1 g/dL (14.0-18.0); LYMPHOCYTES % 18.5 % (20.0-50.0); MEAN CORPUSCULAR HEMOGLOBIN 29.6 pg (28.0-32.0); MEAN CORPUSCULAR VOLUME 89.3 fL (80.0-94.0); MEAN PLATELET VOLUME 9.8 fl (7.4-10.4); MONOCYTES % 12.7 % (2.0-8.0); NEUTROPHILS % 65.3 % (40.0-76.0); RED BLOOD CELL COUNT 3.06 mill/uL (4.7-6.1); RED CELL DISTRIBUTION WIDTH 17.1 % (11.6-14.6)
[2022-03-11 06:55] LABS: PLATELET 24 x1000/uL (130-400)
[2022-03-11] MEDS: CHLORDIAZEPOXIDE 25MG CAPSULE PO SCH ×3 (07:13→23:02)
[2022-03-11] MEDS: BLOOD SUGAR DIAGNOSTIC STRIP TEST SCH ×4 (07:14→21:00)
[2022-03-11] MEDS: INSULIN LISPRO 100 UNITS/ML SUBCUT SCH ×5 (08:37→22:59)
[2022-03-11] MEDS: PANTOPRAZOLE SODIUM 40 MG/VIAL IV SCH ×2 (09:10→22:57)
[2022-03-11 09:52] LABS: CHLORIDE 109 mEq/L (98-107)
[2022-03-11] MEDS ORDERED: PROPOFOL 200MG/20ML VIAL IV ONE (10:53)
[2022-03-11] MEDS ORDERED: ONDANSETRON HCL 4MG/2ML INJ IV PRN (11:00)
[2022-03-11] MEDS ORDERED: MEPERIDINE HCL/PF 25MG/ML CPJ IV PRN (11:00)
[2022-03-11] MEDS ORDERED: HYDROMORPHONE HCL/PF 2MG/ML CPJ IV PRN (11:00)
[2022-03-11] MEDS ORDERED: LABETALOL 5MG/ML SYR 20 MG/4 ML SYRINGE IV PRN (11:00)
[2022-03-11] MEDS ORDERED: MIDAZOLAM HCL 5 MG/5 ML VIAL ONE (11:09)
[2022-03-11] MEDS ORDERED: LIDOCAINE HCL 1% 10 MG/ML 10ML VIAL ONE (11:12)
[2022-03-11 11:32] LABS: PLATELET 47 x1000/uL (130-400)
[2022-03-11] MEDS ORDERED: METOCLOPRAMIDE HCL 10MG/2ML VIAL IV NR (11:35)
[2022-03-11] MEDS: METOCLOPRAMIDE HCL 10MG/2ML VIAL IV SCH ×2 (12:00→18:17)
[2022-03-11 12:14] LABS: HEMATOCRIT 27.1 % (42.0-52.0); HEMOGLOBIN 9.1 g/dL (14.0-18.0)
[2022-03-11] MEDS: DEXT 5%/0.45% NACL 1000ML 1,000 ML IV SCH (16:58)
[2022-03-11] MEDS ORDERED: DIPHENHYDRAMINE 50MG/ML VIAL IV SCH (17:15)
[2022-03-11] MEDS ORDERED: FAMOTIDINE 20MG/2ML VIAL IV SCH (17:15)
[2022-03-11 17:45] LABS: HEMATOCRIT 27.4 % (42.0-52.0); HEMOGLOBIN 9.1 g/dL (14.0-18.0)
[2022-03-11 20:05] LABS: PLATELET ESTIMATE MARKEDLY DECREASED
[2022-03-12] VITALS (24 sets, daily range): BP systolic 113–154; BP diastolic 56–96
[2022-03-12] MEDS: METOCLOPRAMIDE HCL 10MG/2ML VIAL IV SCH ×5 (00:47→23:08)
[2022-03-12 01:09] LABS: HEMATOCRIT 25.8 % (42.0-52.0); HEMOGLOBIN 8.5 g/dL (14.0-18.0)
[2022-03-12] MEDS: DEXT 5%/0.45% NACL 1000ML 1,000 ML IV SCH ×3 (03:06→23:02)
[2022-03-12] MEDS: CHLORDIAZEPOXIDE 25MG CAPSULE PO SCH ×3 (05:23→23:01)
[2022-03-12 05:48] LABS: BASOPHILS % 0.8 % (0.0-2.0); EOSINOPHILS % 1.6 % (0.0-5.0); HEMATOCRIT. 28.3 % (42.0-52.0); HEMOGLOBIN. 9.6 g/dL (14.0-18.0); LYMPHOCYTES % 14.8 % (20.0-50.0); MEAN CORPUSCULAR VOLUME 88.8 fL (80.0-94.0); MEAN PLATELET VOLUME 8.9 fl (7.4-10.4); MONOCYTES % 13.3 % (2.0-8.0); NEUTROPHILS % 69.5 % (40.0-76.0); RED BLOOD CELL COUNT 3.18 mill/uL (4.7-6.1); RED CELL DISTRIBUTION WIDTH 16.9 % (11.6-14.6)
[2022-03-12 05:56] LABS: CHLORIDE 108 mEq/L (98-107)
[2022-03-12 06:09] LABS: PLATELET 28 x1000/uL (130-400)
[2022-03-12] MEDS: BLOOD SUGAR DIAGNOSTIC STRIP TEST SCH ×4 (07:52→21:00)
[2022-03-12] MEDS: INSULIN LISPRO 100 UNITS/ML SUBCUT SCH ×4 (08:02→21:00)
[2022-03-12] MEDS ORDERED: PHYTONADIONE 10MG/ML AMP IM SCH (09:00)
[2022-03-12] MEDS: PANTOPRAZOLE SODIUM 40 MG/VIAL IV SCH ×2 (09:14→23:09)
[2022-03-12] MEDS ORDERED: POTASSIUM CHLORIDE 20MEQ TABLET SR PO NR (11:00)
[2022-03-12] MEDS ORDERED: IRON SUCROSE COMPLEX 100 MG/5 ML ML IV NR (17:00)
[2022-03-12 17:02] LABS: HEMATOCRIT 31.1 % (42.0-52.0); HEMOGLOBIN 10.1 g/dL (14.0-18.0)
[2022-03-12 21:44] LABS: HEMATOCRIT 28.2 % (42.0-52.0); HEMOGLOBIN 9.3 g/dL (14.0-18.0)
[2022-03-13] VITALS (26 sets, daily range): BP systolic 97–149; BP diastolic 62–98
[2022-03-13 02:21] LABS: HEMATOCRIT 29.1 % (42.0-52.0); HEMOGLOBIN 9.6 g/dL (14.0-18.0)
[2022-03-13] MEDS: CHLORDIAZEPOXIDE 25MG CAPSULE PO SCH ×3 (06:17→21:22)
[2022-03-13] MEDS: METOCLOPRAMIDE HCL 10MG/2ML VIAL IV SCH ×3 (06:17→18:26)
[2022-03-13 06:41] LABS: BASOPHILS % 0.6 % (0.0-2.0); EOSINOPHILS % 2.1 % (0.0-5.0); HEMATOCRIT. 28.7 % (42.0-52.0); HEMOGLOBIN. 9.5 g/dL (14.0-18.0); LYMPHOCYTES % 17.4 % (20.0-50.0); MEAN CORPUSCULAR HEMOGLOBIN 29.7 pg (28.0-32.0); MEAN CORPUSCULAR VOLUME 89.8 fL (80.0-94.0); MEAN PLATELET VOLUME 9.5 fl (7.4-10.4); MONOCYTES % 13.5 % (2.0-8.0); NEUTROPHILS % 66.4 % (40.0-76.0); RED CELL DISTRIBUTION WIDTH 17.5 % (11.6-14.6)
[2022-03-13 06:49] LABS: INR 1.5; PROTHROMBIN TIME 15.9 sec (9.6-11.0)
[2022-03-13 06:57] LABS: PLATELET 35 x1000/uL (130-400)
[2022-03-13 07:28] LABS: CHLORIDE 106 mEq/L (98-107)
[2022-03-13] MEDS: BLOOD SUGAR DIAGNOSTIC STRIP TEST SCH ×4 (07:50→21:41)
[2022-03-13] MEDS: PANTOPRAZOLE SODIUM 40 MG/VIAL IV SCH ×2 (08:33→21:21)
[2022-03-13] MEDS: PHYTONADIONE 10MG/ML AMP SUBCUT SCH (08:33)
[2022-03-13] MEDS: OCTREOTIDE 1,000 MCG in SODIUM CHLORIDE 0.9% 100 ML IV SCH (08:34)
[2022-03-13] MEDS: DEXT 5%/0.45% NACL 1000ML 1,000 ML IV SCH ×2 (08:34→21:43)
[2022-03-13] MEDS: INSULIN LISPRO 100 UNITS/ML SUBCUT SCH ×4 (08:35→21:40)
[2022-03-13] MEDS ORDERED: POTASSIUM CHLORIDE 20MEQ TABLET SR PO SCH (11:15)
[2022-03-13 11:52] LABS: HEMOGLOBIN 9.6 g/dL (14.0-18.0)
[2022-03-13] MEDS: CARVEDILOL 3.125 MG TABLET PO SCH ×2 (12:00→21:22)
[2022-03-13 16:01] LABS: VITAMIN B12 SERUM > 2000.0 pg/mL (211-911)
[2022-03-13 21:54] LABS: HEMATOCRIT 27.6 % (42.0-52.0); HEMOGLOBIN 9.3 g/dL (14.0-18.0)
[2022-03-14] VITALS (12 sets, daily range): BP systolic 77–139; BP diastolic 40–96
[2022-03-14] MEDS: METOCLOPRAMIDE HCL 10MG/2ML VIAL IV SCH ×5 (00:03→23:30)
[2022-03-14 01:48] LABS: HEMATOCRIT 29.6 % (42.0-52.0); HEMOGLOBIN 9.9 g/dL (14.0-18.0)
[2022-03-14] MEDS: CHLORDIAZEPOXIDE 25MG CAPSULE PO SCH ×2 (05:23→13:29)
[2022-03-14] MEDS: BLOOD SUGAR DIAGNOSTIC STRIP TEST SCH ×4 (06:59→21:08)
[2022-03-14] MEDS: INSULIN LISPRO 100 UNITS/ML SUBCUT SCH ×4 (07:59→21:00)
[2022-03-14] MEDS: PANTOPRAZOLE SODIUM 40 MG/VIAL IV SCH ×2 (08:37→21:03)
[2022-03-14] MEDS: PHYTONADIONE 10MG/ML AMP SUBCUT SCH (08:38)
[2022-03-14] MEDS: CARVEDILOL 3.125 MG TABLET PO SCH ×2 (08:38→21:00)
[2022-03-14 10:30] LABS: CHLORIDE 109 mEq/L (98-107)
[2022-03-14 12:49] LABS: HEMOGLOBIN. 8.9 g/dL (14.0-18.0); MEAN CORPUSCULAR HEMOGLOBIN 29.6 pg (28.0-32.0); MEAN CORPUSCULAR VOLUME 89.8 fL (80.0-94.0); MEAN PLATELET VOLUME 9.4 fl (7.4-10.4); RED CELL DISTRIBUTION WIDTH 17.3 % (11.6-14.6)
[2022-03-14 13:02] LABS: PLATELET 32 x1000/uL (130-400)
[2022-03-14 13:42] LABS: PLATELET ESTIMATE MARKEDLY DECREASED
[2022-03-14 18:22] LABS: HEMATOCRIT 34.1 % (42.0-52.0)
[2022-03-15] VITALS: BP 101/60
[2022-03-15 04:22] VITALS: BP 111/63
[2022-03-15 04:25] LABS: HEMATOCRIT. 27.5 % (42.0-52.0); HEMOGLOBIN. 9.1 g/dL (14.0-18.0); MEAN CORPUSCULAR HEMOGLOBIN 29.5 pg (28.0-32.0); MEAN CORPUSCULAR VOLUME 89.1 fL (80.0-94.0); MEAN PLATELET VOLUME 8.9 fl (7.4-10.4); RED BLOOD CELL COUNT 3.09 mill/uL (4.7-6.1); RED CELL DISTRIBUTION WIDTH 17.4 % (11.6-14.6)
[2022-03-15 04:33] LABS: CHLORIDE 106 mEq/L (98-107)
[2022-03-15 04:43] LABS: PLATELET 38 x1000/uL (130-400)
[2022-03-15] MEDS: METOCLOPRAMIDE HCL 10MG/2ML VIAL IV SCH ×2 (06:09→12:34)
[2022-03-15] MEDS: INSULIN LISPRO 100 UNITS/ML SUBCUT SCH ×2 (07:50→12:35)
[2022-03-15] MEDS: BLOOD SUGAR DIAGNOSTIC STRIP TEST SCH ×2 (07:59→11:50)
[2022-03-15 08:00] VITALS: BP 108/70
[2022-03-15] MEDS: CARVEDILOL 3.125 MG TABLET PO SCH (08:00)
[2022-03-15] MEDS: PANTOPRAZOLE SODIUM 40 MG/VIAL IV SCH (08:11)
[2022-03-15] MEDS: PHYTONADIONE 10MG/ML AMP SUBCUT SCH (08:12)
[2022-03-15 08:54] LABS: PLATELET ESTIMATE MARKEDLY DECREASED
[2022-03-15] MEDS ORDERED: MULTIVITAMINS,THER W-MINERALS TABLET PO SCH (09:00)
[2022-03-15] MEDS ORDERED: THIAMINE HCL 100MG TABLET PO SCH (09:00)
[2022-03-15] MEDS ORDERED: FOLIC ACID 1MG TABLET PO SCH (09:00)
[2022-03-15 12:00] VITALS: BP 104/67
[2022-03-15] MEDS ORDERED: COR3 PO (13:38)
[2022-03-15] MEDS ORDERED: PANT40TA51 MT (13:38)
[2022-03-15] MEDS ORDERED: L25 MT (13:38)
[2022-03-15] MEDS ORDERED: MULT-230 MT (13:38)
[2022-03-15 15:05] VITALS: BP 104/67
[2022-03-15] MEDS ORDERED: PANTOPRAZOLE 40MG DR TABLET PO SCH (21:00)
== END 2022-03-15 15:45 | disposition home or self-care (01) | DRG 280 ==
LOC: ER 20:55 → ENRESERV 03-09 08:44 → EDBEDREQSVC 03-09 09:20 → ENRESERV 03-09 10:52 → 5EST 03-09 12:08 → CVICU 03-11 13:12 → 6WST 03-14 10:05
PROVIDERS: ADMIT Internal Medicine; ATTEND Internal Medicine
PROC: 30233L1 Transfusion of Nonautologous Fresh Plasma into Peripheral Vein, Percutaneous Approach (ICD-10-PCS; 2022-03-10)
PROC: 30233N1 Transfusion of Nonautologous Red Blood Cells into Peripheral Vein, Percutaneous Approach (ICD-10-PCS; 2022-03-10)
PROC: 30233R1 Transfusion of Nonautologous Platelets into Peripheral Vein, Percutaneous Approach (ICD-10-PCS; 2022-03-10)
PROC: 30233K1 Transfusion of Nonautologous Frozen Plasma into Peripheral Vein, Percutaneous Approach (ICD-10-PCS; 2022-03-10)
PROC: 0DB68ZX Excision of Stomach, Via Natural or Artificial Opening Endoscopic, Diagnostic (ICD-10-PCS; principal; 2022-03-11)
PROC: 06L38CZ Occlusion of Esophageal Vein with Extraluminal Device, Via Natural or Artificial Opening Endoscopic (ICD-10-PCS; 2022-03-11)
DX: K70.31 Alcoholic cirrhosis of liver with ascites (principal); I85.01 Esophageal varices with bleeding; D68.9 Coagulation defect, unspecified; D69.6 Thrombocytopenia, unspecified; E88.09 Other disorders of plasma-protein metabolism, not elsewhere classified; D63.1 Anemia in chronic kidney disease; K76.6 Portal hypertension; E11.22 Type 2 diabetes mellitus with diabetic chronic kidney disease; Z20.822 Contact with and (suspected) exposure to COVID-19; E11.40 Type 2 diabetes mellitus with diabetic neuropathy, unspecified; D69.59 Other secondary thrombocytopenia; F10.229 Alcohol dependence with intoxication, unspecified; Y90.8 Blood alcohol level of 240 mg/100 ml or more; I12.9 Hypertensive chronic kidney disease with stage 1 through stage 4 chronic kidney disease, or unspecified chronic kidney disease; R74.01 Elevation of levels of liver transaminase levels; E80.6 Other disorders of bilirubin metabolism; E11.65 Type 2 diabetes mellitus with hyperglycemia; E83.42 Hypomagnesemia; N18.9 Chronic kidney disease, unspecified; Z79.4 Long term (current) use of insulin; Z82.49 Family history of ischemic heart disease and other diseases of the circulatory system
CPT/HCPCS: 36415; 36430; 71045; 74176; 76700; 80048; 80053; 80076; 80305; 80320; 82607; 82728; 82746; 82962; 83036; 83540; 83550; 83735; 84100; 84484; 85014; 85018; 85025; 85027; 85044; 86078; 86850; 86900; 86920; 86927; 87426; 88305; 88312; 88313; 93005; 99291; C9113; J1200; J1815; J2250; J2354; J2405; J2704; J2765; J3411; J3430; J3475; J3490; J7030; J7050; J7070; P9016; P9017; P9034; G0480; P9035

== ENCOUNTER 2022-04-08 20:16 | Inpatient (IN) | payer MEDICAID ==
[~2022-04-08] VITALS: Ht 167.6 cm; Wt 87.1 kg
[~2022-04-08 20:16] MED LIST changes: -ATOR10TA69 PO; -CIPHCO EACH EAR; +COR3 PO; -DIPH103G TP; +MULT-230 MT; -OMEP20CA14 MT; -ONDA4TAB5 MT; -ONDA4TAB5 PO; +PANT40TA51 MT; -TOPUD PO
[2022-04-08] MEDS ORDERED: ONDANSETRON HCL 4MG/2ML INJ IV STA (21:47)
[2022-04-08] MEDS ORDERED: PANTOPRAZOLE SODIUM 40 MG/VIAL IV STA (21:47)
[2022-04-08] MEDS ORDERED: OCTREOTIDE 1,000 MCG in SODIUM CHLORIDE 0.9% 100 ML IV STA (21:47)
[2022-04-08] MEDS ORDERED: OCTREOTIDE ACETATE 50 MCG/ML 1ML IV STA (21:47)
[2022-04-08] MEDS ORDERED: SODIUM CHLORIDE 0.9% 1,000 ML IV ONE (22:00)
[2022-04-08] MEDS ORDERED: CEFTRIAXONE 1 G PREMIX 50 ML IV ONE (22:00)
[2022-04-08 22:24] LABS: BASOPHILS % 1.1 % (0.0-2.0); EOSINOPHILS % 0.5 % (0.0-5.0); HEMATOCRIT. 22.2 % (42.0-52.0); HEMOGLOBIN. 7.1 g/dL (14.0-18.0); LYMPHOCYTES % 14.8 % (20.0-50.0); MEAN CORPUSCULAR HEMOGLOBIN 29.7 pg (28.0-32.0); MEAN CORPUSCULAR VOLUME 92.7 fL (80.0-94.0); MEAN PLATELET VOLUME 9.4 fl (7.4-10.4); MONOCYTES % 12.8 % (2.0-8.0); NEUTROPHILS % 70.8 % (40.0-76.0); PLATELET 71 x1000/uL (130-400); RED CELL DISTRIBUTION WIDTH 19.1 % (11.6-14.6)
[2022-04-08 22:26] LABS: CHLORIDE 106 mEq/L (98-107)
[2022-04-08 22:35] LABS: INR 1.5; PARTIAL THROMBOPLASTIN TIME 27.5 sec (23.4-31.0); PROTHROMBIN TIME 15.8 sec (9.6-11.0)
[2022-04-09] VITALS (12 sets, daily range): BP systolic 115–162; BP diastolic 62–98
[2022-04-09] MEDS ORDERED: CEFTRIAXONE 1 G PREMIX 50 ML IV NR (01:15)
[2022-04-09] MEDS ORDERED: OCTREOTIDE 1,000 MCG in SODIUM CHLORIDE 0.9% 98 ML IV SCH ×2 (06:15→07:30)
[2022-04-09] MEDS ORDERED: NALOXONE HCL 0.4MG/ML VIAL IV PRN (06:30)
[2022-04-09] MEDS ORDERED: PANTOPRAZOLE 80 MG in SODIUM CHLORIDE 0.9% 100 ML IV SCH (07:30)
[2022-04-09] MEDS: MORPHINE SULFATE 2 MG/ML CPJ (NOT FOR IM USE) IV PRN ×3 (08:07→23:20)
[2022-04-09] MEDS: DEXT 5%/0.45% NACL 1000ML 1,000 ML IV SCH ×2 (08:08→19:35)
[2022-04-09 09:16] LABS: CHLORIDE 110 mEq/L (98-107)
[2022-04-09] MEDS ORDERED: LIDOCAINE HCL 1% 50ML VIAL (10MG/ML) ONE (10:01)
[2022-04-09] MEDS: PANTOPRAZOLE SODIUM 40 MG/VIAL IV SCH ×2 (10:08→23:29)
[2022-04-09] MEDS: OCTREOTIDE 1,000 MCG in SODIUM CHLORIDE 0.9% 98 ML IV SCH (10:10)
[2022-04-09 10:12] LABS: TOTAL IRON BINDING CAPACITY 294 ug/dL (250-450)
[2022-04-09 10:30] LABS: BASOPHILS % 0.3 % (0.0-2.0); EOSINOPHILS % 0.1 % (0.0-5.0); HEMATOCRIT. 23.7 % (42.0-52.0); HEMOGLOBIN. 7.7 g/dL (14.0-18.0); LYMPHOCYTES % 12.8 % (20.0-50.0); MEAN PLATELET VOLUME 9.4 fl (7.4-10.4); MONOCYTES % 13.8 % (2.0-8.0); PLATELET 57 x1000/uL (130-400); RED BLOOD CELL COUNT 2.55 mill/uL (4.7-6.1); RED CELL DISTRIBUTION WIDTH 17.8 % (11.6-14.6)
[2022-04-09 10:45] LABS: FOLIC ACID (FOLATE) SERUM 9.4 ng/mL (>5.38)
[2022-04-09] MEDS ORDERED: SIMETHICONE 40 MG/0.6 ML 15ML ONE (11:47)
[2022-04-09] MEDS ORDERED: PROPOFOL 200MG/20ML VIAL IV ONE (12:01)
[2022-04-09] MEDS ORDERED: CARVEDILOL 12.5MG TABLET PO NR (12:45)
[2022-04-09] MEDS ORDERED: ONDANSETRON HCL 4MG/2ML INJ IV PRN ×2 (13:30→14:15)
[2022-04-09] MEDS ORDERED: METOCLOPRAMIDE HCL 10MG/2ML VIAL IV NR (13:30)
[2022-04-09 20:03] LABS: HEMATOCRIT 19.4 % (42.0-52.0)
[2022-04-10] VITALS (17 sets, daily range): BP systolic 107–164; BP diastolic 66–115
[2022-04-10 02:50] LABS: HEMATOCRIT 22.5 % (42.0-52.0); HEMOGLOBIN 7.5 g/dL (14.0-18.0)
[2022-04-10 02:54] LABS: CHLORIDE 109 mEq/L (98-107)
[2022-04-10] MEDS: OCTREOTIDE 1,000 MCG in SODIUM CHLORIDE 0.9% 98 ML IV SCH (06:42)
[2022-04-10] MEDS: MORPHINE SULFATE 2 MG/ML CPJ (NOT FOR IM USE) IV PRN ×3 (06:42→23:28)
[2022-04-10] MEDS ORDERED: DEXTROSE 50% WATER 50ML SYRINGE IV PRN (07:45)
[2022-04-10] MEDS: PANTOPRAZOLE SODIUM 40 MG/VIAL IV SCH ×2 (09:09→23:27)
[2022-04-10] MEDS: CARVEDILOL 12.5MG TABLET PO SCH (09:10)
[2022-04-10] MEDS: DEXT 5%/0.45% NACL 1000ML 1,000 ML IV SCH ×2 (09:10→18:50)
[2022-04-10] MEDS: INSULIN LISPRO 100 UNITS/ML SUBCUT SCH ×4 (09:16→21:10)
[2022-04-10] MEDS: BLOOD SUGAR DIAGNOSTIC STRIP TEST SCH ×3 (12:30→21:10)
[2022-04-10 12:35] LABS: HEMATOCRIT. 22.2 % (42.0-52.0); HEMOGLOBIN. 7.3 g/dL (14.0-18.0); MEAN CORPUSCULAR HEMOGLOBIN 30.5 pg (28.0-32.0); MEAN CORPUSCULAR VOLUME 93.2 fL (80.0-94.0); MEAN PLATELET VOLUME 9.5 fl (7.4-10.4); RED BLOOD CELL COUNT 2.38 mill/uL (4.7-6.1); RED CELL DISTRIBUTION WIDTH 16.5 % (11.6-14.6)
[2022-04-10 13:18] LABS: PLATELET 35 x1000/uL (130-400); PLATELET ESTIMATE MARKEDLY DECREASED
[2022-04-10] MEDS ORDERED: FUROSEMIDE 40MG/4ML VIAL IVP SCH (15:00)
[2022-04-10] MEDS: THIAMINE HCL 100MG TABLET PO SCH (16:44)
[2022-04-10] MEDS: IRON SUCROSE COMPLEX 100 MG/5 ML ML IV SCH (16:44)
[2022-04-10] MEDS: PHYTONADIONE 10MG/ML AMP SUBCUT SCH (16:45)
[2022-04-11] VITALS (15 sets, daily range): BP systolic 100–131; BP diastolic 57–83
[2022-04-11] MEDS ORDERED: FUROSEMIDE 40MG/4ML VIAL IVP NR ×2 (00:30→08:00)
[2022-04-11 06:22] LABS: CHLORIDE 108 mEq/L (98-107)
[2022-04-11 06:40] LABS: HEMATOCRIT. 24.2 % (42.0-52.0); HEMOGLOBIN. 7.9 g/dL (14.0-18.0); MEAN CORPUSCULAR HEMOGLOBIN 30.4 pg (28.0-32.0); MEAN CORPUSCULAR VOLUME 93.1 fL (80.0-94.0); MEAN PLATELET VOLUME 9.4 fl (7.4-10.4); RED CELL DISTRIBUTION WIDTH 16.2 % (11.6-14.6)
[2022-04-11 06:54] LABS: PLATELET 39 x1000/uL (130-400)
[2022-04-11] MEDS: INSULIN LISPRO 100 UNITS/ML SUBCUT SCH ×4 (08:00→21:00)
[2022-04-11] MEDS: BLOOD SUGAR DIAGNOSTIC STRIP TEST SCH ×4 (08:02→21:47)
[2022-04-11 09:27] LABS: NUCLEATED RED BLOOD CELLS 3 /100 WBC; PLATELET ESTIMATE MARKEDLY DECREASED
[2022-04-11] MEDS ORDERED: POTASSIUM CHLORIDE INJ 40 MEQ in DEXT 5% WATER 250 ML IV NR (09:30)
[2022-04-11] MEDS: PANTOPRAZOLE SODIUM 40 MG/VIAL IV SCH ×2 (09:31→21:50)
[2022-04-11] MEDS: OCTREOTIDE 1,000 MCG in SODIUM CHLORIDE 0.9% 98 ML IV SCH (09:31)
[2022-04-11] MEDS: PHYTONADIONE 10MG/ML AMP SUBCUT SCH (09:32)
[2022-04-11] MEDS: THIAMINE HCL 100MG TABLET PO SCH (09:32)
[2022-04-11] MEDS: CARVEDILOL 12.5MG TABLET PO SCH (09:32)
[2022-04-11 12:25] LABS: HEMATOCRIT 22.3 % (42.0-52.0); HEMOGLOBIN 7.2 g/dL (14.0-18.0)
[2022-04-11] MEDS: MORPHINE SULFATE 2 MG/ML CPJ (NOT FOR IM USE) IV PRN (16:26)
[2022-04-11] MEDS: IRON SUCROSE COMPLEX 100 MG/5 ML ML IV SCH (16:44)
[2022-04-11 20:09] LABS: HEMATOCRIT 24.2 % (42.0-52.0); HEMOGLOBIN 7.8 g/dL (14.0-18.0)
[2022-04-12] VITALS (9 sets, daily range): BP systolic 103–111; BP diastolic 61–74
[2022-04-12] MEDS: BLOOD SUGAR DIAGNOSTIC STRIP TEST SCH ×2 (06:48→11:48)
[2022-04-12] MEDS: INSULIN LISPRO 100 UNITS/ML SUBCUT SCH ×2 (08:00→13:23)
[2022-04-12 08:14] LABS: HEMATOCRIT. 22.9 % (42.0-52.0); HEMOGLOBIN. 7.7 g/dL (14.0-18.0); MEAN CORPUSCULAR HEMOGLOBIN 31.3 pg (28.0-32.0); MEAN CORPUSCULAR VOLUME 92.9 fL (80.0-94.0); MEAN PLATELET VOLUME 10.1 fl (7.4-10.4); RED BLOOD CELL COUNT 2.46 mill/uL (4.7-6.1); RED CELL DISTRIBUTION WIDTH 16.3 % (11.6-14.6)
[2022-04-12 08:41] LABS: CHLORIDE 105 mEq/L (98-107)
[2022-04-12 08:43] LABS: PLATELET 38 x1000/uL (130-400)
[2022-04-12] MEDS: CARVEDILOL 12.5MG TABLET PO SCH (10:01)
[2022-04-12] MEDS: PHYTONADIONE 10MG/ML AMP SUBCUT SCH (10:01)
[2022-04-12] MEDS: THIAMINE HCL 100MG TABLET PO SCH (10:01)
[2022-04-12] MEDS: PANTOPRAZOLE SODIUM 40 MG/VIAL IV SCH (10:02)
[2022-04-12] MEDS ORDERED: POTASSIUM CHLORIDE 20MEQ TABLET SR PO NR (11:15)
[2022-04-12 14:05] LABS: PLATELET ESTIMATE MARKEDLY DECREASED
[2022-04-12] MEDS ORDERED: THIA100T88 MT (15:07)
[2022-04-12] MEDS ORDERED: PROT40 MT (15:07)
== END 2022-04-12 16:47 | disposition home or self-care (01) | DRG 280 ==
LOC: ER 20:16 → ENRESERV 04-09 02:42 → 5EST 04-09 04:17
PROVIDERS: ADMIT Internal Medicine; ATTEND Internal Medicine
PROC: 06L38CZ Occlusion of Esophageal Vein with Extraluminal Device, Via Natural or Artificial Opening Endoscopic (ICD-10-PCS; principal; 2022-04-09)
PROC: 02HV33Z Insertion of Infusion Device into Superior Vena Cava, Percutaneous Approach (ICD-10-PCS; 2022-04-09)
PROC: B548ZZA Ultrasonography of Superior Vena Cava, Guidance (ICD-10-PCS; 2022-04-09)
PROC: B5181ZA Fluoroscopy of Superior Vena Cava using Low Osmolar Contrast, Guidance (ICD-10-PCS; 2022-04-09)
PROC: 30233N1 Transfusion of Nonautologous Red Blood Cells into Peripheral Vein, Percutaneous Approach (ICD-10-PCS; 2022-04-09)
PROC: 30233R1 Transfusion of Nonautologous Platelets into Peripheral Vein, Percutaneous Approach (ICD-10-PCS; 2022-04-10)
DX: K70.31 Alcoholic cirrhosis of liver with ascites (principal); I85.11 Secondary esophageal varices with bleeding; D69.6 Thrombocytopenia, unspecified; D68.9 Coagulation defect, unspecified; E87.2 Acidosis; E88.09 Other disorders of plasma-protein metabolism, not elsewhere classified; Z20.822 Contact with and (suspected) exposure to COVID-19; K76.6 Portal hypertension; K31.89 Other diseases of stomach and duodenum; I10 Essential (primary) hypertension; E11.9 Type 2 diabetes mellitus without complications; D50.9 Iron deficiency anemia, unspecified; F17.200 Nicotine dependence, unspecified, uncomplicated; F10.20 Alcohol dependence, uncomplicated; Z79.899 Other long term (current) drug therapy
CPT/HCPCS: 36415; 36573; 71045; 76705; 80048; 80053; 82607; 82728; 82746; 82962; 83540; 83550; 83605; 84484; 85014; 85018; 85025; 85044; 86850; 86900; 86920; 86945; 87426; 93005; 99291; C1725; C1769; C9113; C9803; J0696; J1815; J1940; J2270; J2354; J2405; J2704; J2765; J3430; J3480; J3490; J7030; J7050; J7060; P9016; P9034; P9036

== ENCOUNTER 2022-04-20 00:25 | Inpatient (IN) | payer MEDICAID ==
[~2022-04-20] VITALS: Ht 167.6 cm; Wt 82.6 kg
[~2022-04-20 00:25] MED LIST changes: +PROT40 MT
[2022-04-20] MEDS ORDERED: OCTREOTIDE 1,000 MCG in SODIUM CHLORIDE 0.9% 100 ML IV STA (01:17)
[2022-04-20] MEDS ORDERED: OCTREOTIDE ACETATE 50 MCG/ML 1ML IV STA (01:17)
[2022-04-20] MEDS ORDERED: PANTOPRAZOLE SODIUM 40 MG/VIAL IV STA (01:17)
[2022-04-20] MEDS ORDERED: PANTOPRAZOLE 80 MG in SODIUM CHLORIDE 0.9% 100 ML IV STA (01:17)
[2022-04-20] MEDS ORDERED: ONDANSETRON HCL 4MG/2ML INJ IV STA (01:17)
[2022-04-20] MEDS ORDERED: SODIUM CHLORIDE 0.9% 1,000 ML IV ONE (01:30)
[2022-04-20] MEDS ORDERED: ONDANSETRON HCL 4MG/2ML INJ IV NR (03:00)
[2022-04-20 03:09] LABS: BASOPHILS % 1.3 % (0.0-2.0); HEMATOCRIT. 28.6 % (42.0-52.0); LYMPHOCYTES % 12.8 % (20.0-50.0); MEAN CORPUSCULAR HEMOGLOBIN 30.9 pg (28.0-32.0); MONOCYTES % 9.7 % (2.0-8.0); NEUTROPHILS % 76.2 % (40.0-76.0); PLATELET 131 x1000/uL (130-400); RED BLOOD CELL COUNT 2.92 mill/uL (4.7-6.1); RED CELL DISTRIBUTION WIDTH 18.6 % (11.6-14.6)
[2022-04-20 03:16] LABS: CHLORIDE 106 mEq/L (98-107)
[2022-04-20 03:21] LABS: INR 1.5; PROTHROMBIN TIME 15.4 sec (9.6-11.0)
[2022-04-20 08:35] VITALS: BP 140/83
[2022-04-20 10:18] VITALS: BP 140/83
[2022-04-20 12:00] VITALS: BP 127/76
[2022-04-20] MEDS ORDERED: ACETAMINOPHEN 325MG TABLET PO PRN ×2 (12:15)
[2022-04-20] MEDS ORDERED: NALOXONE HCL 0.4MG/ML VIAL IV PRN (12:15)
[2022-04-20] MEDS ORDERED: CLONIDINE 0.1MG TABLET PO PRN (12:15)
[2022-04-20] MEDS ORDERED: LORAZEPAM 0.5MG TABLET PO PRN (12:15)
[2022-04-20] MEDS ORDERED: DOCUSATE SODIUM 100MG CAPSULE PO PRN (12:15)
[2022-04-20] MEDS ORDERED: IPRATROPIUM/ALBUTEROL 0.5-3(2.5)MG/3ML NEB HHN PRN (12:15)
[2022-04-20] MEDS ORDERED: PANTOPRAZOLE SODIUM 40 MG/VIAL IV SCH (12:15)
[2022-04-20] MEDS ORDERED: ONDANSETRON HCL 4MG/2ML INJ IV PRN (12:15)
[2022-04-20] MEDS ORDERED: OCTREOTIDE 1,000 MCG in SODIUM CHLORIDE 0.9% 100 ML IV PRN (13:30)
[2022-04-20 16:00] VITALS: BP 124/76
[2022-04-20] MEDS: THIAMINE HCL 100MG TABLET PO SCH (16:30)
[2022-04-20] MEDS: CHLORDIAZEPOXIDE 25MG CAPSULE PO SCH ×2 (16:30→23:15)
[2022-04-20] MEDS: LACTULOSE 20G/30ML UDC PO SCH (16:30)
[2022-04-20] MEDS: MULTIVITAMINS,THER W-MINERALS TABLET PO SCH (16:30)
[2022-04-20] MEDS: FOLIC ACID 1MG TABLET PO SCH (16:30)
[2022-04-20 17:24] LABS: *AMPHETAMINES SCREEN URINE NEGATIVE (NEGATIVE); *BARBITURATES SCREEN URINE NEGATIVE (NEGATIVE); *BENZODIAZEPINES SCREEN URINE PRESUMTIVE POSITIVE (NEGATIVE); *COCAINE SCREEN URINE NEGATIVE (NEGATIVE); CANNABINOID URINE SCREEN NEGATIVE (NEGATIVE); METHADONE URINE SCREEN NEGATIVE (NEGATIVE); OPIATES URINE SCREEN NEGATIVE (NEGATIVE); PHENCYCLIDINE URINE SCREEN NEGATIVE (NEGATIVE)
[2022-04-20 18:12] LABS: HEMATOCRIT 23.7 % (42.0-52.0); HEMOGLOBIN 7.3 g/dL (14.0-18.0); MEAN CORPUSCULAR VOLUME 100.3 fL (80.0-94.0); PLATELET 115 x1000/uL (130-400); RED BLOOD CELL COUNT 2.36 mill/uL (4.7-6.1); RED CELL DISTRIBUTION WIDTH 19.5 % (11.6-14.6)
[2022-04-20 20:00] VITALS: BP 131/78
[2022-04-20] MEDS: PANTOPRAZOLE SODIUM 40 MG/VIAL IV SCH (21:50)
[2022-04-20] MEDS: TRAZODONE HCL 50MG TABLET PO SCH (21:50)
[2022-04-20] MEDS: CARVEDILOL 3.125 MG TABLET PO SCH (21:51)
[2022-04-20] MEDS: HYDROCODONE/ACETAMINOPHEN 5/325MG TABLET PO PRN (21:55)
[2022-04-21] VITALS (17 sets, daily range): BP systolic 93–113; BP diastolic 61–80
[2022-04-21] MEDS: CHLORDIAZEPOXIDE 25MG CAPSULE PO SCH ×3 (06:38→21:26)
[2022-04-21] MEDS: LACTULOSE 20G/30ML UDC PO SCH (08:20)
[2022-04-21] MEDS: THIAMINE HCL 100MG TABLET PO SCH (08:21)
[2022-04-21] MEDS: PANTOPRAZOLE SODIUM 40 MG/VIAL IV SCH ×2 (08:21→21:26)
[2022-04-21] MEDS: FOLIC ACID 1MG TABLET PO SCH (08:21)
[2022-04-21] MEDS: CARVEDILOL 3.125 MG TABLET PO SCH ×2 (08:21→21:35)
[2022-04-21] MEDS: MULTIVITAMINS,THER W-MINERALS TABLET PO SCH (08:21)
[2022-04-21 08:22] LABS: CHLORIDE 110 mEq/L (98-107)
[2022-04-21 08:27] LABS: HEMATOCRIT. 22.4 % (42.0-52.0); HEMOGLOBIN. 7.2 g/dL (14.0-18.0); MEAN CORPUSCULAR HEMOGLOBIN 30.7 pg (28.0-32.0); PLATELET 62 x1000/uL (130-400); RED BLOOD CELL COUNT 2.34 mill/uL (4.7-6.1); RED CELL DISTRIBUTION WIDTH 18.1 % (11.6-14.6)
[2022-04-21] MEDS ORDERED: SODIUM BICARBONATE 4% (2.4MEQ) 5ML VIAL IV ONE (09:06)
[2022-04-21] MEDS ORDERED: LIDOCAINE HCL/PF 1% 10 MG/ML 5ML VIAL ONE (09:07)
[2022-04-21 11:42] LABS: PLATELET ESTIMATE DECREASED
[2022-04-21] MEDS: SODIUM CHLORIDE 0.9% 1,000 ML IV SCH (13:18)
[2022-04-21 20:06] LABS: HEMATOCRIT 27.3 % (42.0-52.0); HEMOGLOBIN 9.1 g/dL (14.0-18.0)
[2022-04-21] MEDS: TRAZODONE HCL 50MG TABLET PO SCH (21:26)
[2022-04-22] VITALS: BP 101/60
[2022-04-22 01:02] LABS: HEMATOCRIT 27.2 % (42.0-52.0)
[2022-04-22 04:00] VITALS: BP 102/64
[2022-04-22] MEDS: CHLORDIAZEPOXIDE 25MG CAPSULE PO SCH ×3 (05:23→21:01)
[2022-04-22] MEDS: SODIUM CHLORIDE 0.9% 1,000 ML IV SCH (05:24)
[2022-04-22 07:36] LABS: BASOPHILS % 1.2 % (0.0-2.0); EOSINOPHILS % 1.3 % (0.0-5.0); HEMATOCRIT. 27.3 % (42.0-52.0); LYMPHOCYTES % 15.3 % (20.0-50.0); MEAN CORPUSCULAR HEMOGLOBIN 31.3 pg (28.0-32.0); MEAN CORPUSCULAR VOLUME 94.8 fL (80.0-94.0); MEAN PLATELET VOLUME 9.8 fl (7.4-10.4); MONOCYTES % 12.7 % (2.0-8.0); NEUTROPHILS % 69.5 % (40.0-76.0); PLATELET 51 x1000/uL (130-400); RED BLOOD CELL COUNT 2.88 mill/uL (4.7-6.1); RED CELL DISTRIBUTION WIDTH 17.6 % (11.6-14.6)
[2022-04-22 08:00] VITALS: BP 95/52
[2022-04-22 08:10] LABS: CHLORIDE 112 mEq/L (98-107)
[2022-04-22] MEDS: MULTIVITAMINS,THER W-MINERALS TABLET PO SCH (08:35)
[2022-04-22] MEDS: LACTULOSE 20G/30ML UDC PO SCH ×2 (08:35→08:44)
[2022-04-22] MEDS: CARVEDILOL 3.125 MG TABLET PO SCH ×2 (08:36→20:13)
[2022-04-22] MEDS: THIAMINE HCL 100MG TABLET PO SCH (08:36)
[2022-04-22] MEDS: FOLIC ACID 1MG TABLET PO SCH (08:36)
[2022-04-22] MEDS: PANTOPRAZOLE SODIUM 40 MG/VIAL IV SCH ×2 (08:36→21:01)
[2022-04-22 12:00] VITALS: BP 102/62
[2022-04-22 13:10] LABS: HEMATOCRIT 28.4 % (42.0-52.0)
[2022-04-22 16:00] VITALS: BP 105/63
[2022-04-22 20:00] VITALS: BP 100/64
[2022-04-22] MEDS: TRAZODONE HCL 50MG TABLET PO SCH (21:01)
[2022-04-23] VITALS: BP 94/56
[2022-04-23] MEDS: HYDROCODONE/ACETAMINOPHEN 5/325MG TABLET PO PRN (01:43)
[2022-04-23 04:00] VITALS: BP 106/67
[2022-04-23] MEDS: CHLORDIAZEPOXIDE 25MG CAPSULE PO SCH ×2 (05:22→13:21)
[2022-04-23 06:40] LABS: EOSINOPHILS % 0.9 % (0.0-5.0); HEMATOCRIT. 29.7 % (42.0-52.0); HEMOGLOBIN. 9.8 g/dL (14.0-18.0); LYMPHOCYTES % 11.6 % (20.0-50.0); MEAN CORPUSCULAR HEMOGLOBIN 31.3 pg (28.0-32.0); MEAN CORPUSCULAR VOLUME 94.9 fL (80.0-94.0); MEAN PLATELET VOLUME 10.1 fl (7.4-10.4); MONOCYTES % 10.5 % (2.0-8.0); PLATELET 63 x1000/uL (130-400); RED BLOOD CELL COUNT 3.13 mill/uL (4.7-6.1); RED CELL DISTRIBUTION WIDTH 17.9 % (11.6-14.6)
[2022-04-23 06:50] LABS: CHLORIDE 110 mEq/L (98-107)
[2022-04-23 08:27] VITALS: BP 97/65
[2022-04-23] MEDS: PANTOPRAZOLE SODIUM 40 MG/VIAL IV SCH (08:47)
[2022-04-23] MEDS: FOLIC ACID 1MG TABLET PO SCH (08:48)
[2022-04-23] MEDS: CARVEDILOL 3.125 MG TABLET PO SCH ×2 (08:48→08:53)
[2022-04-23] MEDS: MULTIVITAMINS,THER W-MINERALS TABLET PO SCH (08:48)
[2022-04-23] MEDS: THIAMINE HCL 100MG TABLET PO SCH (08:48)
[2022-04-23] MEDS: LACTULOSE 20G/30ML UDC PO SCH (08:48)
[2022-04-23 12:04] VITALS: BP 111/76
[2022-04-23 16:45] VITALS: BP 139/74
[2022-04-23 16:51] VITALS: BP 139/72
== END 2022-04-23 17:29 | disposition home or self-care (01) | DRG 280 ==
LOC: ER 00:48 → EDBEDREQTM 04:21 → 8WST 05:37 → EDBEDREQTM 05:42 → EDBEDREQ 05:42 → EDBEDREQSVC 05:42
PROVIDERS: ADMIT Internal Medicine; ATTEND Internal Medicine
PROC: 0W9G3ZZ Drainage of Peritoneal Cavity, Percutaneous Approach (ICD-10-PCS; principal; 2022-04-21)
PROC: 30233N1 Transfusion of Nonautologous Red Blood Cells into Peripheral Vein, Percutaneous Approach (ICD-10-PCS; 2022-04-21)
DX: K70.31 Alcoholic cirrhosis of liver with ascites (principal); I85.11 Secondary esophageal varices with bleeding; D68.9 Coagulation defect, unspecified; D69.6 Thrombocytopenia, unspecified; K76.6 Portal hypertension; E88.09 Other disorders of plasma-protein metabolism, not elsewhere classified; E11.65 Type 2 diabetes mellitus with hyperglycemia; Z20.822 Contact with and (suspected) exposure to COVID-19; I10 Essential (primary) hypertension; R00.0 Tachycardia, unspecified; F10.20 Alcohol dependence, uncomplicated; D72.821 Monocytosis (symptomatic); D50.9 Iron deficiency anemia, unspecified; D53.9 Nutritional anemia, unspecified; Z79.899 Other long term (current) drug therapy
CPT/HCPCS: 36415; 49083; 71045; 76705; 80048; 80053; 80076; 80305; 82140; 82248; 82270; 82962; 83615; 83735; 85014; 85018; 85025; 85027; 85044; 86850; 86900; 86920; 87426; 93005; 97162; 99291; C9113; J2354; J2405; J3490; J7030; J7050; P9016

== ENCOUNTER 2022-05-11 00:38 | Emergency (ER) | payer MEDICAID ==
[~2022-05-11] VITALS: Ht 165.1 cm; Wt 79.7 kg
[~2022-05-11 00:38] MED LIST changes: +FURO-151 MT; -GLYB1TAB35 PO; -L25 MT; -LACT10SO7 MT; -ONDA4TAB11 PO; +POTA-204 PO; -PROT40 MT
[2022-05-11 08:18] LABS: HEMATOCRIT. 29.8 % (42.0-52.0); HEMOGLOBIN. 9.8 g/dL (14.0-18.0); MEAN CORPUSCULAR HEMOGLOBIN 29.2 pg (28.0-32.0); MEAN CORPUSCULAR VOLUME 89.1 fL (80.0-94.0); MEAN PLATELET VOLUME 9.7 fl (7.4-10.4); PLATELET 103 x1000/uL (130-400); RED BLOOD CELL COUNT 3.34 mill/uL (4.7-6.1)
[2022-05-11 08:22] LABS: CHLORIDE 108 mEq/L (98-107)
[2022-05-11 09:34] LABS: PLATELET ESTIMATE SLIGHTLY DECREASED
[2022-05-11 09:41] LABS: CLARITY URINE CLEAR (CLEAR); COLOR URINE YELLOW (YELLOW); KETONES URINE NEGATIVE (NEGATIVE); LEUKOCYTE ESTERASE URINE NEGATIVE (NEGATIVE); NITRITE URINE NEGATIVE (NEGATIVE); OCCULT BLOOD URINE NEGATIVE (NEGATIVE); PROTEIN URINE NEGATIVE (NEGATIVE); SPECIFIC GRAVITY URINE 1.005 (1.005-1.030)
[2022-05-11] MEDS ORDERED: MORPHINE SULFATE 2 MG/ML CPJ (NOT FOR IM USE) IV ONE (09:45)
[2022-05-11 09:46] LABS: INR 1.2; PARTIAL THROMBOPLASTIN TIME 30.6 sec (23.4-31.0); PROTHROMBIN TIME 13.1 sec (9.6-11.0)
[2022-05-11] MEDS ORDERED: SODIUM CHLORIDE 0.9% 1,000 ML IV NR (10:30)
[2022-05-11] MEDS ORDERED: LIDOCAINE HCL 1% 30ML VIAL (10MG/ML) ONE (10:46)
[2022-05-11] MEDS ORDERED: SODIUM BICARBONATE 4% (2.4MEQ) 5ML VIAL IV ONE (10:46)
[2022-05-11 13:31] VITALS: BP 130/82
== END 2022-05-11 13:33 | disposition home or self-care (01) ==
LOC: ER 00:38
DX: R18.8 Other ascites (principal); R10.9 Unspecified abdominal pain; I10 Essential (primary) hypertension; Z79.899 Other long term (current) drug therapy; Z20.822 Contact with and (suspected) exposure to COVID-19
CPT/HCPCS: 36415; 49083; 80053; 81003; 82140; 83690; 83880; 84484; 85025; 85610; 85730; 86850; 86900; 86901; 87426; 96374; 99285; C9803; J2270; J3490; Z7610; 99284

== ENCOUNTER 2022-06-03 09:59 | Emergency (ER) | payer MEDICAID ==
[~2022-06-03] VITALS: Ht 167.6 cm; Wt 86.2 kg
[~2022-06-03 09:59] MED LIST changes: +SUCR1TAB30 MT
[2022-06-03 13:04] VITALS: BP 130/96
[2022-06-03 13:11] LABS: CHLORIDE 106 mEq/L (98-107)
[2022-06-03 13:13] LABS: HEMATOCRIT. 26.2 % (42.0-52.0); HEMOGLOBIN. 8.3 g/dL (14.0-18.0); MEAN CORPUSCULAR HEMOGLOBIN 27.2 pg (28.0-32.0); MEAN CORPUSCULAR VOLUME 85.7 fL (80.0-94.0); MEAN PLATELET VOLUME 9.6 fl (7.4-10.4); PLATELET 69 x1000/uL (130-400); RED BLOOD CELL COUNT 3.06 mill/uL (4.7-6.1); RED CELL DISTRIBUTION WIDTH 17.9 % (11.6-14.6)
[2022-06-03 13:49] LABS: PLATELET ESTIMATE DECREASED
[2022-06-03 14:08] LABS: INR 1.3
[2022-06-03] MEDS ORDERED: SODIUM BICARBONATE 4% (2.4MEQ) 5ML VIAL IV ONE (14:31)
[2022-06-03] MEDS ORDERED: LIDOCAINE HCL 1% 30ML VIAL (10MG/ML) ONE (14:31)
[2022-06-03] MEDS ORDERED: ALBUMIN HUMAN 12.5GM/50ML (25%) IV ONE (16:15)
== END 2022-06-03 17:58 | disposition home or self-care (01) ==
LOC: ER 09:59
DX: R18.8 Other ascites (principal); Z79.899 Other long term (current) drug therapy; Z20.822 Contact with and (suspected) exposure to COVID-19
CPT/HCPCS: 36415; 49083; 80053; 85025; 85610; 87426; 99285; C9803; J3490; P9047; Z7610

== ENCOUNTER 2022-06-06 07:32 | Emergency (ER) | payer MEDICAID ==
[~2022-06-06] VITALS: Ht 167.6 cm; Wt 86.0 kg
[2022-06-06 10:02] LABS: HEMATOCRIT. 27.1 % (42.0-52.0); HEMOGLOBIN. 8.6 g/dL (14.0-18.0); MEAN CORPUSCULAR HEMOGLOBIN 27.1 pg (28.0-32.0); MEAN CORPUSCULAR VOLUME 85.2 fL (80.0-94.0); MEAN PLATELET VOLUME 9.4 fl (7.4-10.4); PLATELET 56 x1000/uL (130-400); RED BLOOD CELL COUNT 3.17 mill/uL (4.7-6.1); RED CELL DISTRIBUTION WIDTH 18.3 % (11.6-14.6)
[2022-06-06 10:09] LABS: CHLORIDE 109 mEq/L (98-107)
[2022-06-06 10:11] LABS: INR 1.3
[2022-06-06 10:20] LABS: ETHANOL BLOOD 190 mg/dL
[2022-06-06] MEDS ORDERED: LIDOCAINE HCL 1% 10 MG/ML 10ML VIAL ONE (10:52)
[2022-06-06] MEDS ORDERED: SODIUM BICARBONATE 4% (2.4MEQ) 5ML VIAL IV ONE (10:52)
[2022-06-06 12:26] LABS: PLATELET ESTIMATE DECREASED
[2022-06-06 13:39] VITALS: BP 130/78
== END 2022-06-06 13:40 | disposition home or self-care (01) ==
LOC: ER 07:32
DX: R18.8 Other ascites (principal); T51.0X1A Toxic effect of ethanol, accidental (unintentional), initial encounter; Z79.899 Other long term (current) drug therapy; Y92.9 Unspecified place or not applicable
CPT/HCPCS: 36415; 49083; 80053; 80320; 83690; 85025; 85610; 99285; J3490; Z7610; G0480

== ENCOUNTER 2022-06-09 14:52 | Emergency (ER) | payer MEDICAID ==
[~2022-06-09] VITALS: Ht 170.2 cm; Wt 91.0 kg
[2022-06-09 15:20] VITALS: BP 131/91
== END 2022-06-09 18:14 | disposition home or self-care (01) ==
LOC: ER 14:52
DX: K70.31 Alcoholic cirrhosis of liver with ascites (principal); F10.20 Alcohol dependence, uncomplicated; Y90.9 Presence of alcohol in blood, level not specified
CPT/HCPCS: 99281

== ENCOUNTER 2022-06-10 07:09 | Emergency (ER) | payer MEDICAID ==
[~2022-06-10] VITALS: Ht 167.6 cm; Wt 81.7 kg
[2022-06-10] MEDS ORDERED: MORPHINE SULFATE 4 MG/ML CPJ (NOT FOR IM USE) IV NR (08:10)
[2022-06-10] MEDS ORDERED: ONDANSETRON HCL 4MG/2ML INJ IV NR (08:10)
[2022-06-10 08:53] LABS: HEMATOCRIT. 31.9 % (42.0-52.0); HEMOGLOBIN. 10.5 g/dL (14.0-18.0); MEAN CORPUSCULAR HEMOGLOBIN 27.5 pg (28.0-32.0); MEAN CORPUSCULAR VOLUME 83.3 fL (80.0-94.0); MEAN PLATELET VOLUME 8.8 fl (7.4-10.4); PLATELET 87 x1000/uL (130-400); RED BLOOD CELL COUNT 3.83 mill/uL (4.7-6.1); RED CELL DISTRIBUTION WIDTH 18.6 % (11.6-14.6)
[2022-06-10 08:56] LABS: INR 1.2; PROTHROMBIN TIME 12.8 sec (9.6-11.0)
[2022-06-10 09:03] LABS: CHLORIDE 106 mEq/L (98-107)
[2022-06-10 09:10] LABS: ETHANOL BLOOD 233 mg/dL
[2022-06-10 09:53] LABS: PLATELET ESTIMATE DECREASED
[2022-06-10 11:05] LABS: CLARITY URINE CLEAR (CLEAR); COLOR URINE DARK YELLOW (YELLOW); KETONES URINE NEGATIVE (NEGATIVE); LEUKOCYTE ESTERASE URINE NEGATIVE (NEGATIVE); NITRITE URINE NEGATIVE (NEGATIVE); OCCULT BLOOD URINE NEGATIVE (NEGATIVE); PROTEIN URINE TRACE (NEGATIVE); SPECIFIC GRAVITY URINE 1.016 (1.005-1.030)
[2022-06-10 11:42] LABS: *AMPHETAMINES SCREEN URINE NEGATIVE (NEGATIVE); *BARBITURATES SCREEN URINE NEGATIVE (NEGATIVE); *BENZODIAZEPINES SCREEN URINE PRESUMTIVE POSITIVE (NEGATIVE); *COCAINE SCREEN URINE NEGATIVE (NEGATIVE); CANNABINOID URINE SCREEN NEGATIVE (NEGATIVE); METHADONE URINE SCREEN NEGATIVE (NEGATIVE); OPIATES URINE SCREEN PRESUMTIVE POSITIVE (NEGATIVE); PHENCYCLIDINE URINE SCREEN NEGATIVE (NEGATIVE)
[2022-06-10 13:35] VITALS: BP 128/90
[2022-06-10] MEDS ORDERED: LORAZEPAM 1MG TABLET PO ONE (15:45)
[2022-06-10] MEDS ORDERED: SODIUM CHLORIDE 0.9% 1,000 ML IV ONE (16:30)
[2022-06-10] MEDS ORDERED: LORAZEPAM 2MG/ML CPJ IV ONE (16:30)
[2022-06-11] MEDS ORDERED: POTA-205 PO (19:00)
[2022-06-11] MEDS ORDERED: ACET-2708 PO (19:00)
== END 2022-06-10 15:12 | disposition home or self-care (01) ==
LOC: ER 07:09
DX: R18.8 Other ascites (principal); Z20.822 Contact with and (suspected) exposure to COVID-19
CPT/HCPCS: 36415; 49083; 80053; 80305; 80320; 81003; 83690; 85025; 85610; 87426; 96361; 96374; 96375; 99285; C9803; J2060; J2270; J2405; J7030; Z7610; G0480

== ENCOUNTER 2022-06-11 02:08 | Emergency (ER) | payer MEDICAID ==
[2022-06-11] MEDS ORDERED: ACETAMINOPHEN 325MG TABLET PO ONE (05:45)
[2022-06-11] MEDS ORDERED: IBUPROFEN 400MG TABLET PO ONE (05:45)
[2022-06-11] MEDS ORDERED: POTA-205 PO (19:00)
[2022-06-11] MEDS ORDERED: ACET-2708 PO (19:00)
== END 2022-06-11 05:55 | disposition home or self-care (01) ==
LOC: ER 02:08
DX: R25.2 Cramp and spasm (principal); F10.20 Alcohol dependence, uncomplicated; K70.30 Alcoholic cirrhosis of liver without ascites; Y90.9 Presence of alcohol in blood, level not specified; E11.9 Type 2 diabetes mellitus without complications; Z98.890 Other specified postprocedural states
CPT/HCPCS: 71045; 99283

== ENCOUNTER 2022-06-16 05:55 | Emergency (ER) | payer MEDICAID ==
[~2022-06-16] VITALS: Ht 167.6 cm; Wt 81.2 kg
[~2022-06-16 05:55] MED LIST changes: +ACET-2708 PO; +POTA-205 PO
[2022-06-16 06:56] LABS: CHLORIDE 108 mEq/L (98-107)
[2022-06-16 06:58] LABS: INR 1.3; PROTHROMBIN TIME 13.4 sec (9.6-11.0)
[2022-06-16 07:02] LABS: HEMATOCRIT. 27.6 % (42.0-52.0); MEAN CORPUSCULAR VOLUME 86.1 fL (80.0-94.0); MEAN PLATELET VOLUME 8.6 fl (7.4-10.4); PLATELET 69 x1000/uL (130-400); RED BLOOD CELL COUNT 3.21 mill/uL (4.7-6.1); RED CELL DISTRIBUTION WIDTH 19.5 % (11.6-14.6)
[2022-06-16 07:41] LABS: PLATELET ESTIMATE DECREASED
[2022-06-16] MEDS ORDERED: SODIUM BICARBONATE 4% (2.4MEQ) 5ML VIAL IV ONE (12:30)
[2022-06-16] MEDS ORDERED: LIDOCAINE HCL 1% 10 MG/ML 10ML VIAL ONE (12:30)
[2022-06-16] MEDS ORDERED: MAGNESIUM/ALUMINUM HYDROXIDE/SIMETHICONE 30ML UDC PO PRN (14:45)
[2022-06-16] MEDS ORDERED: ACETAMINOPHEN 325MG TABLET PO PRN ×2 (14:45)
[2022-06-16] MEDS ORDERED: KETOROLAC 15MG/ML VIAL IV PRN (14:45)
[2022-06-16] MEDS ORDERED: ONDANSETRON HCL 4MG/2ML INJ IV PRN (14:45)
[2022-06-16] MEDS ORDERED: NITROGLYCERIN 0.4MG TABLET SL SL PRN (14:45)
[2022-06-16] MEDS ORDERED: IPRATROPIUM/ALBUTEROL 0.5-3(2.5)MG/3ML NEB NEB PRN (14:45)
[2022-06-16] MEDS ORDERED: GUAIFENESIN 200MG/10ML SUGAR FREE UDC PO PRN (14:45)
[2022-06-16] MEDS ORDERED: CLONIDINE 0.1MG TABLET PO PRN (14:45)
[2022-06-16] MEDS ORDERED: DOCUSATE SODIUM 100MG CAPSULE PO PRN (14:45)
[2022-06-16] MEDS ORDERED: PANTOPRAZOLE SODIUM 40 MG/VIAL IV SCH (15:00)
[2022-06-16] MEDS ORDERED: IOHEXOL-300 100 ML BOTTLE ONE (15:51)
[2022-06-16 16:35] VITALS: BP 122/74
[2022-06-16] MEDS ORDERED: FUROSEMIDE 20MG/2ML VIAL IVP SCH (17:15)
[2022-06-16] MEDS ORDERED: ZOLPIDEM TARTRATE 5MG TABLET PO PRN (21:00)
[2022-06-16] MEDS ORDERED: SPIRONOLACTONE 25MG TABLET PO SCH (21:00)
== END 2022-06-16 16:43 | disposition left against medical advice (07) ==
LOC: ER 06:03 → CANBEDREQ 22:36
DX: K70.31 Alcoholic cirrhosis of liver with ascites (principal); F10.20 Alcohol dependence, uncomplicated; D61.818 Other pancytopenia; R73.9 Hyperglycemia, unspecified; Z20.822 Contact with and (suspected) exposure to COVID-19; Y90.9 Presence of alcohol in blood, level not specified
CPT/HCPCS: 36415; 49083; 74177; 80053; 82945; 82962; 83615; 83690; 84157; 85025; 85610; 87070; 87075; 87205; 87426; 89050; 99285; C9803; J3490; Q9967; U0003; U0005; Z7610

== ENCOUNTER 2022-06-19 05:48 | Emergency (ER) | payer MEDICAID ==
[~2022-06-19] VITALS: Ht 167.6 cm; Wt 76.3 kg
[2022-06-19 08:00] VITALS: BP 144/94
[2022-06-19 08:21] LABS: CHLORIDE 107 mEq/L (98-107)
[2022-06-19 08:22] LABS: HEMATOCRIT. 34.5 % (42.0-52.0); INR 1.2; MEAN CORPUSCULAR HEMOGLOBIN 27.8 pg (28.0-32.0); MEAN CORPUSCULAR VOLUME 87.2 fL (80.0-94.0); PLATELET 80 x1000/uL (130-400); PROTHROMBIN TIME 12.8 sec (9.6-11.0); RED BLOOD CELL COUNT 3.96 mill/uL (4.7-6.1)
[2022-06-19 08:52] LABS: PLATELET ESTIMATE DECREASED
[2022-06-19] MEDS ORDERED: LIDOCAINE HCL 1% 10 MG/ML 10ML VIAL ONE (09:31)
[2022-06-19] MEDS ORDERED: SODIUM BICARBONATE 4% (2.4MEQ) 5ML VIAL IV ONE (09:31)
== END 2022-06-19 09:00 | disposition home or self-care (01) ==
LOC: ER 06:01
DX: K70.31 Alcoholic cirrhosis of liver with ascites (principal); F10.20 Alcohol dependence, uncomplicated; Y90.9 Presence of alcohol in blood, level not specified; Z20.822 Contact with and (suspected) exposure to COVID-19
CPT/HCPCS: 36415; 49083; 80053; 83690; 85025; 85610; 87426; 99284; C9803; J3490; Z7610

== ENCOUNTER 2022-06-21 07:56 | Emergency (ER) | payer MEDICAID ==
[~2022-06-21] VITALS: Ht 167.6 cm; Wt 72.0 kg
[2022-06-21 10:06] LABS: HEMATOCRIT. 34.2 % (42.0-52.0); HEMOGLOBIN. 11.1 g/dL (14.0-18.0); MEAN CORPUSCULAR VOLUME 86.6 fL (80.0-94.0); MEAN PLATELET VOLUME 9.4 fl (7.4-10.4); PLATELET 80 x1000/uL (130-400); RED BLOOD CELL COUNT 3.95 mill/uL (4.7-6.1)
[2022-06-21 10:19] LABS: CHLORIDE 106 mEq/L (98-107)
[2022-06-21 10:21] LABS: INR 1.3; PARTIAL THROMBOPLASTIN TIME 30.2 sec (23.4-31.0); PROTHROMBIN TIME 13.4 sec (9.6-11.0)
[2022-06-21 11:22] LABS: PLATELET ESTIMATE DECREASED
[2022-06-21] MEDS ORDERED: SODIUM BICARBONATE 4% (2.4MEQ) 5ML VIAL IV ONE (14:02)
[2022-06-21] MEDS ORDERED: LIDOCAINE HCL 1% 30ML VIAL (10MG/ML) ONE (14:02)
[2022-06-21 14:43] VITALS: BP 137/84
== END 2022-06-21 14:44 | disposition home or self-care (01) ==
LOC: ER 08:23
DX: K70.31 Alcoholic cirrhosis of liver with ascites (principal); F10.20 Alcohol dependence, uncomplicated; Y90.9 Presence of alcohol in blood, level not specified; R00.0 Tachycardia, unspecified; I10 Essential (primary) hypertension; Z20.822 Contact with and (suspected) exposure to COVID-19; E11.9 Type 2 diabetes mellitus without complications
CPT/HCPCS: 36415; 49083; 71045; 80053; 83690; 83880; 85025; 85610; 85730; 86850; 86900; 86901; 87426; 93005; 99285; C9803; J3490; Z7610

== ENCOUNTER 2022-06-28 06:28 | Emergency (ER) | payer MEDICAID ==
[~2022-06-28] VITALS: Ht 167.6 cm; Wt 76.4 kg
[2022-06-28 08:47] VITALS: BP 134/55
== END 2022-06-28 08:53 | disposition home or self-care (01) ==
LOC: ER 06:36
DX: Z53.21 Procedure and treatment not carried out due to patient leaving prior to being seen by health care provider (principal)

== ENCOUNTER 2022-06-30 06:34 | Emergency (ER) | payer MEDICAID ==
[~2022-06-30] VITALS: Ht 167.6 cm; Wt 78.1 kg
[2022-06-30 07:00] VITALS: BP 126/92
[2022-06-30 08:12] LABS: CHLORIDE 104 mEq/L (98-107)
[2022-06-30 08:14] LABS: HEMATOCRIT. 33.2 % (42.0-52.0); HEMOGLOBIN. 10.8 g/dL (14.0-18.0); MEAN CORPUSCULAR HEMOGLOBIN 28.9 pg (28.0-32.0); MEAN CORPUSCULAR VOLUME 88.4 fL (80.0-94.0); MEAN PLATELET VOLUME 8.7 fl (7.4-10.4); PLATELET 73 x1000/uL (130-400); RED BLOOD CELL COUNT 3.75 mill/uL (4.7-6.1); RED CELL DISTRIBUTION WIDTH 22.8 % (11.6-14.6)
[2022-06-30 08:31] LABS: INR 1.2; PROTHROMBIN TIME 13.1 sec (9.6-11.0)
[2022-06-30] MEDS ORDERED: LIDOCAINE HCL 1% 10 MG/ML 10ML VIAL ONE (08:56)
[2022-06-30] MEDS ORDERED: SODIUM BICARBONATE 4% (2.4MEQ) 5ML VIAL IV ONE (08:56)
[2022-06-30 12:46] LABS: PLATELET ESTIMATE DECREASED
== END 2022-06-30 12:03 | disposition home or self-care (01) ==
LOC: ER 06:34
DX: K70.31 Alcoholic cirrhosis of liver with ascites (principal); F10.20 Alcohol dependence, uncomplicated; Y90.9 Presence of alcohol in blood, level not specified; R03.0 Elevated blood-pressure reading, without diagnosis of hypertension; Z20.822 Contact with and (suspected) exposure to COVID-19
CPT/HCPCS: 36415; 49083; 80053; 83690; 85025; 85610; 87426; 99285; J3490; Z7610

== ENCOUNTER 2022-07-10 06:36 | Emergency (ER) | payer MEDICAID ==
[~2022-07-10] VITALS: Ht 167.6 cm; Wt 78.0 kg
[2022-07-10 10:22] LABS: HEMATOCRIT. 33.3 % (42.0-52.0); HEMOGLOBIN. 10.6 g/dL (14.0-18.0); MEAN CORPUSCULAR HEMOGLOBIN 28.6 pg (28.0-32.0); MEAN CORPUSCULAR VOLUME 89.7 fL (80.0-94.0); MEAN PLATELET VOLUME 9.2 fl (7.4-10.4); PLATELET 66 x1000/uL (130-400); RED BLOOD CELL COUNT 3.72 mill/uL (4.7-6.1); RED CELL DISTRIBUTION WIDTH 22.4 % (11.6-14.6)
[2022-07-10 10:29] LABS: CHLORIDE 112 mEq/L (98-107)
[2022-07-10 10:50] LABS: INR 1.2; PROTHROMBIN TIME 12.8 sec (9.6-11.0)
[2022-07-10 12:08] LABS: PLATELET ESTIMATE DECREASED
[2022-07-10] MEDS ORDERED: SODIUM BICARBONATE 4% (2.4MEQ) 5ML VIAL IV ONE (12:16)
[2022-07-10] MEDS ORDERED: LIDOCAINE HCL 1% 10 MG/ML 10ML VIAL ONE (12:17)
[2022-07-10 14:03] VITALS: BP 114/78
== END 2022-07-10 14:04 | disposition home or self-care (01) ==
LOC: ER 06:36
DX: R18.8 Other ascites (principal); K74.60 Unspecified cirrhosis of liver; D61.818 Other pancytopenia; I10 Essential (primary) hypertension; E11.9 Type 2 diabetes mellitus without complications; Z20.822 Contact with and (suspected) exposure to COVID-19; Z79.4 Long term (current) use of insulin; Z79.899 Other long term (current) drug therapy
CPT/HCPCS: 36415; 49083; 80053; 83690; 85025; 85610; 87426; 99285; C9803; J3490; Z7610

== ENCOUNTER 2022-07-10 14:46 | Emergency (ER) | payer MEDICAID ==
[~2022-07-10] VITALS: Ht 165.1 cm; Wt 76.0 kg
[2022-07-10 15:56] VITALS: BP 152/75
== END 2022-07-10 16:00 | disposition home or self-care (01) ==
LOC: ER 14:46
DX: Z48.00 Encounter for change or removal of nonsurgical wound dressing (principal)
CPT/HCPCS: 99281; Z7610

== ENCOUNTER 2022-07-11 01:17 | Emergency (ER) | payer MEDICAID ==
[~2022-07-11] VITALS: Ht 167.6 cm; Wt 65.0 kg
[2022-07-11 04:00] LABS: HEMATOCRIT. 26.4 % (42.0-52.0); HEMOGLOBIN. 8.6 g/dL (14.0-18.0); MEAN CORPUSCULAR HEMOGLOBIN 28.8 pg (28.0-32.0); MEAN CORPUSCULAR VOLUME 88.6 fL (80.0-94.0); MEAN PLATELET VOLUME 9.1 fl (7.4-10.4); RED BLOOD CELL COUNT 2.99 mill/uL (4.7-6.1); RED CELL DISTRIBUTION WIDTH 22.2 % (11.6-14.6)
[2022-07-11 04:19] LABS: CHLORIDE 112 mEq/L (98-107)
[2022-07-11 04:29] LABS: PLATELET 49 x1000/uL (130-400)
[2022-07-11] MEDS ORDERED: IBUPROFEN 600MG TABLET PO ONE (05:30)
[2022-07-11 05:57] VITALS: BP 101/61
[2022-07-11 06:41] LABS: PLATELET ESTIMATE MARKEDLY DECREASED
== END 2022-07-11 05:00 | disposition home or self-care (01) ==
LOC: ER 01:17
DX: M79.605 Pain in left leg (principal); M79.604 Pain in right leg; E11.9 Type 2 diabetes mellitus without complications; Z79.899 Other long term (current) drug therapy
CPT/HCPCS: 36415; 80053; 83880; 85025; 93970; 99284

== ENCOUNTER 2022-07-14 17:33 | Inpatient (IN) | payer MEDICAID, OTHER ==
[~2022-07-14] VITALS: Ht 172.7 cm; Wt 82.0 kg
[2022-07-14 21:23] LABS: BASOPHILS % 0.8 % (0.0-2.0); EOSINOPHILS % 0.5 % (0.0-5.0); HEMATOCRIT. 35.6 % (42.0-52.0); HEMOGLOBIN. 11.6 g/dL (14.0-18.0); LYMPHOCYTES % 16.3 % (20.0-50.0); MEAN CORPUSCULAR HEMOGLOBIN 28.8 pg (28.0-32.0); MEAN CORPUSCULAR VOLUME 88.1 fL (80.0-94.0); MEAN PLATELET VOLUME 8.9 fl (7.4-10.4); MONOCYTES % 12.3 % (2.0-8.0); NEUTROPHILS % 70.1 % (40.0-76.0); PLATELET 83 x1000/uL (130-400); RED BLOOD CELL COUNT 4.04 mill/uL (4.7-6.1); RED CELL DISTRIBUTION WIDTH 21.8 % (11.6-14.6)
[2022-07-14 21:30] LABS: INR 1.2; PARTIAL THROMBOPLASTIN TIME 31.9 sec (23.4-31.0); PROTHROMBIN TIME 12.6 sec (9.6-11.0)
[2022-07-14] MEDS ORDERED: SPIRONOLACTONE 50MG TABLET PO NR (23:45)
[2022-07-14] MEDS ORDERED: FUROSEMIDE 40MG TABLET PO NR (23:45)
[2022-07-15] MEDS ORDERED: HYDROCODONE/ACETAMINOPHEN 10/325MG TABLET PO PRN (00:30)
[2022-07-15] MEDS ORDERED: ONDANSETRON HCL 4MG TABLET PO PRN (00:30)
[2022-07-15] MEDS ORDERED: NALOXONE HCL 0.4MG/ML VIAL IV PRN (00:30)
[2022-07-15] MEDS ORDERED: PANTOPRAZOLE 40MG DR TABLET PO SCH (06:30)
[2022-07-15 07:58] VITALS: BP 117/78
== END 2022-07-15 08:20 | disposition left against medical advice (07) | DRG 251 ==
LOC: ER 17:33 → MICUSO 22:27 → CANBEDREQ 07-15 08:20
PROVIDERS: ADMIT Internal Medicine; ATTEND Internal Medicine
DX: R10.11 Right upper quadrant pain (principal); E11.9 Type 2 diabetes mellitus without complications; I10 Essential (primary) hypertension; F10.20 Alcohol dependence, uncomplicated; Z20.822 Contact with and (suspected) exposure to COVID-19; Z79.899 Other long term (current) drug therapy; Z53.29 Procedure and treatment not carried out because of patient's decision for other reasons
CPT/HCPCS: 36415; 71045; 74176; 76700; 80053; 80305; 80320; 83880; 84484; 85025; 87426; 93005; 99285; C1893; Q0162; G0480

== ENCOUNTER 2022-07-18 12:54 | Inpatient (IN) | payer OTHER ==
[~2022-07-18] VITALS: Ht 170.2 cm; Wt 73.2 kg
[2022-07-18] MEDS ORDERED: MORPHINE SULFATE 4 MG/ML CPJ (NOT FOR IM USE) IV STA (13:27)
[2022-07-18] MEDS ORDERED: PANTOPRAZOLE 80 MG in SODIUM CHLORIDE 0.9% 100 ML IV STA (13:27)
[2022-07-18] MEDS ORDERED: PANTOPRAZOLE SODIUM 40 MG/VIAL IV STA (13:27)
[2022-07-18] MEDS ORDERED: ONDANSETRON HCL 4MG/2ML INJ IV STA (13:27)
[2022-07-18] MEDS ORDERED: OCTREOTIDE ACETATE 50 MCG/ML 1ML IV STA (13:27)
[2022-07-18] MEDS ORDERED: OCTREOTIDE 1,000 MCG in SODIUM CHLORIDE 0.9% 100 ML IV STA (13:27)
[2022-07-18] MEDS ORDERED: SODIUM CHLORIDE 0.9% 1000ML BAG (SEPSIS BOLUS) IV ONE (13:30)
[2022-07-18 14:14] LABS: BASOPHILS % 0.4 % (0.0-2.0); HEMATOCRIT. 21.5 % (42.0-52.0); LYMPHOCYTES % 9.9 % (20.0-50.0); MEAN CORPUSCULAR HEMOGLOBIN 29.5 pg (28.0-32.0); MEAN CORPUSCULAR VOLUME 95.6 fL (80.0-94.0); MEAN PLATELET VOLUME 9.6 fl (7.4-10.4); MONOCYTES % 6.2 % (2.0-8.0); NEUTROPHILS % 83.5 % (40.0-76.0); PLATELET 113 x1000/uL (130-400); RED BLOOD CELL COUNT 2.25 mill/uL (4.7-6.1); RED CELL DISTRIBUTION WIDTH 22.2 % (11.6-14.6)
[2022-07-18 14:16] LABS: CHLORIDE 106 mEq/L (98-107)
[2022-07-18 14:27] LABS: ETHANOL BLOOD 264 mg/dL
[2022-07-18 14:38] LABS: INR 1.6; PROTHROMBIN TIME 16.3 sec (9.6-11.0)
[2022-07-18 14:43] LABS: HEMOGLOBIN. 6.6 g/dL (14.0-18.0)
[2022-07-18 14:57] LABS: PLATELET ESTIMATE SLIGHTLY DECREASED
[2022-07-18] MEDS ORDERED: MORPHINE SULFATE 2 MG/ML CPJ (NOT FOR IM USE) IV ONE (19:00)
[2022-07-18 22:00] VITALS: BP 108/68
[2022-07-19] VITALS (40 sets, daily range): BP systolic 32–147; BP diastolic 16–75
[2022-07-19 01:06] LABS: HEMATOCRIT 28.8 % (42.0-52.0); HEMOGLOBIN 8.8 g/dL (14.0-18.0)
[2022-07-19] MEDS ORDERED: HYDROCODONE/ACETAMINOPHEN 5/325MG TABLET PO PRN (07:15)
[2022-07-19] MEDS ORDERED: ONDANSETRON HCL 4MG/2ML INJ IV PRN (07:15)
[2022-07-19] MEDS ORDERED: DOCUSATE SODIUM 100MG CAPSULE PO PRN (07:15)
[2022-07-19] MEDS ORDERED: ACETAMINOPHEN 325MG TABLET PO PRN ×2 (07:15)
[2022-07-19] MEDS ORDERED: IPRATROPIUM/ALBUTEROL 0.5-3(2.5)MG/3ML NEB HHN PRN ×2 (07:15→15:30)
[2022-07-19] MEDS ORDERED: CLONIDINE 0.1MG TABLET PO PRN (07:15)
[2022-07-19] MEDS ORDERED: LORAZEPAM 0.5MG TABLET PO PRN (07:15)
[2022-07-19] MEDS ORDERED: SODIUM CHLORIDE 0.9% 1,000 ML IV SCH ×2 (08:00→16:00)
[2022-07-19] MEDS ORDERED: PANTOPRAZOLE SODIUM 40 MG/VIAL IV SCH ×2 (09:00→17:00)
[2022-07-19] MEDS ORDERED: CEFTRIAXONE 1,000 MG in DEXTROSE 5% WATER 50 ML IV SCH (09:00)
[2022-07-19] MEDS: OCTREOTIDE 1,000 MCG in SODIUM CHLORIDE 0.9% 100 ML IV SCH (10:08)
[2022-07-19] MEDS ORDERED: LORAZEPAM 2MG/ML CPJ IV PRN (11:00)
[2022-07-19] MEDS ORDERED: NALOXONE HCL 0.4MG/ML VIAL IV PRN (11:15)
[2022-07-19] MEDS: CHLORDIAZEPOXIDE 25MG CAPSULE PO SCH ×2 (14:00→21:11)
[2022-07-19] MEDS ORDERED: MIDAZOLAM 100MG/100ML PMX 100 ML IV PRN (15:30)
[2022-07-19] MEDS ORDERED: MIDAZOLAM HCL 100 MG in SODIUM CHLORIDE 0.9% 100 ML IV PRN (16:00)
[2022-07-19] MEDS ORDERED: FENTANYL 2500MCG/250ML PMX 250 ML IV PRN (16:00)
[2022-07-19 16:01] LABS: BG CARBOXYHEMOGLOBIN 0.3 % (0.5-1.5); BG DEOXYHEMOGLOBIN 4.4 % (0.0-5.0); BG FRACTION INSPIRED OXYGEN 100; BG HCO3 ACT 3.9 mmol/L (22.0-26.0); BG OXYGEN SATURATION 95.5 % (92.0-98.5); BG OXYHEMOGLOBIN 94.3 % (94.0-97.0); BG PCO2 31.5 mmHg (35.0-45.0); BG PH 6.712 (7.350-7.450); BG PO2 143.1 mmHg (75.0-100.0); BG SAMPLE SITE LEFT RADIAL; BG TOTAL HEMOGLOBIN 5.1 g/dL (12.0-18.0); BG TOTAL RESPIRATORY RATE 19 b/min; BG VENT MODE VENT - AC
[2022-07-19] MEDS ORDERED: SODIUM BICARBONATE 8.4% 1 MEQ/ML 50ML SYR IV NR (16:15)
[2022-07-19] MEDS ORDERED: SODIUM BICARBONATE 150 MEQ in SODIUM CHLORIDE 0.9% 1,000 ML IV SCH (16:30)
[2022-07-19] MEDS ORDERED: SODIUM BICARBONATE 150 MEQ in DEXTROSE 5% WATER 1,000 ML IV SCH (16:30)
[2022-07-19 16:38] LABS: HEMATOCRIT 16.5 % (42.0-52.0); HEMOGLOBIN 4.6 g/dL (14.0-18.0)
[2022-07-19 16:40] LABS: INR 3.1; PROTHROMBIN TIME 30.8 sec (9.6-11.0)
[2022-07-19] MEDS: PHENYLEPHRINE 100 MG in DEXT 5% WATER 240 ML IV PRN ×2 (16:40→23:33)
[2022-07-19] MEDS ORDERED: SODIUM BICARBONATE 150 MEQ in SODIUM CHLORIDE 0.45% 1,000 ML IV SCH (16:45)
[2022-07-19 17:29] LABS: FERRITIN 178 ng/mL (22-322)
[2022-07-19 17:46] LABS: CHLORIDE 105 mEq/L (98-107)
[2022-07-19 18:16] LABS: TOTAL IRON BINDING CAPACITY 167 ug/dL (250-450)
[2022-07-19 18:21] LABS: VITAMIN B12 SERUM > 2000.0 pg/mL (211-911)
[2022-07-19] MEDS ORDERED: VASOPRESSIN 20 UNIT in SODIUM CHLORIDE 0.9% 99 ML IV PRN (18:30)
[2022-07-19] MEDS: SODIUM BICARBONATE 100 MEQ in SODIUM CHLORIDE 0.45% 1,000 ML IV SCH (19:00)
[2022-07-19] MEDS: IPRATROPIUM/ALBUTEROL 0.5-3(2.5)MG/3ML NEB HHN SCH (20:45)
[2022-07-19 21:27] LABS: AMYLASE 239 IU/L (25-115)
[2022-07-19] MEDS: NOREPINEPHRINE 32 MG in DEXT 5% WATER 218 ML IV PRN ×2 (22:06→23:34)
[2022-07-20] VITALS (8 sets, daily range): BP systolic 43–94; BP diastolic 25–39
[2022-07-20] MEDS: OCTREOTIDE 1,000 MCG in SODIUM CHLORIDE 0.9% 100 ML IV SCH (01:09)
[2022-07-20] MEDS: IPRATROPIUM/ALBUTEROL 0.5-3(2.5)MG/3ML NEB HHN SCH (01:14)
[2022-07-20] MEDS: SODIUM BICARBONATE 100 MEQ in SODIUM CHLORIDE 0.45% 1,000 ML IV SCH (01:49)
[2022-07-20] MEDS ORDERED: DEXTROSE 50% WATER 50ML SYRINGE IV ONE (02:34)
== END 2022-07-20 04:00 | DRG 280 ==
LOC: ER 12:54 → 5EST 16:18 → ENRESERV 18:46 → CVICU 07-19 18:32
PROVIDERS: ADMIT Internal Medicine; ATTEND Internal Medicine
PROC: 30233N1 Transfusion of Nonautologous Red Blood Cells into Peripheral Vein, Percutaneous Approach (ICD-10-PCS; principal; 2022-07-18)
PROC: 5A12012 Performance of Cardiac Output, Single, Manual (ICD-10-PCS; 2022-07-19)
PROC: 0BH17EZ Insertion of Endotracheal Airway into Trachea, Via Natural or Artificial Opening (ICD-10-PCS; 2022-07-19)
PROC: 5A1935Z Respiratory Ventilation, Less than 24 Consecutive Hours (ICD-10-PCS; 2022-07-19)
PROC: 30233K1 Transfusion of Nonautologous Frozen Plasma into Peripheral Vein, Percutaneous Approach (ICD-10-PCS; 2022-07-19)
PROC: 06HY33Z Insertion of Infusion Device into Lower Vein, Percutaneous Approach (ICD-10-PCS; 2022-07-19)
DX: K70.31 Alcoholic cirrhosis of liver with ascites (principal); J96.01 Acute respiratory failure with hypoxia; I46.9 Cardiac arrest, cause unspecified; I85.11 Secondary esophageal varices with bleeding; D68.9 Coagulation defect, unspecified; E88.09 Other disorders of plasma-protein metabolism, not elsewhere classified; D69.6 Thrombocytopenia, unspecified; K76.6 Portal hypertension; J98.11 Atelectasis; D53.9 Nutritional anemia, unspecified; Z20.822 Contact with and (suspected) exposure to COVID-19; E11.65 Type 2 diabetes mellitus with hyperglycemia; F10.129 Alcohol abuse with intoxication, unspecified; F41.9 Anxiety disorder, unspecified; Z87.11 Personal history of peptic ulcer disease; N20.0 Calculus of kidney
CPT/HCPCS: 31500; 36415; 36600; 71045; 74176; 76705; 80053; 80320; 82150; 82375; 82607; 82728; 82746; 82805; 82962; 83540; 83550; 83880; 84145; 84484; 85014; 85018; 85025; 86850; 86900; 86920; 86927; 87426; 92950; 93005; 94002; 94640; 99291; C9113; C9803; J0696; J2270; J2354; J2405; J3490; J7030; J7050; J7060; J7070; P9016; P9017; A4315; G0480